=== PATIENT | female | born 1950 | race Caucasian/White ===

== ENCOUNTER → 2016-05-19 | Outpatient (CLI) | payer OTHER ==
[~2016-05-19] MED LIST: ASPCH81 PO; ASTIN/15 INH; ATV/2 PO; CALC600T9 PO; CHOL20007 PO; CLC100 PO; COEN100C7 PO; CYAN500T13 PO; DOCU100C31 PO; DULO60CA44 PO; EZET10TA41 PO; FLUT1INH INH; FORM1NEB INH; FRS/40 PO; GABA-112 PO; GLC500 PO; GLIP-197 PO; HYDR-4715 PO; HYDR-5688 PO; INSDGI SC; ISOS60TA PO; LOSA100T65 PO; MAGN400T6 PO; METO50TA7 PO; NASONEX INTNAS; NTRGSL/4 UT; OMEG10007 PO; OXYC5TAB PO; PERFORMIST INH; POTA-331 PO; PRT/20 PO; RABE20TA5 PO; SITA50TA PO; SITA50TA3 PO; SNG10 PO; XPNIN INH
--- NOTE | 2016-05-19 12:21 | DIAGNOSTIC IMAGING REPORT ---
CT SCAN OF THE CHEST WITHOUT IV CONTRAST CLINICAL HISTORY: Non-small cell lung cancer. Pulmonary nodule. COMPARISON STUDY: Chest CT scans dated 02/23/2016, 10/01/2013, and 07/31/2007. PET/CT dated 12/10/2015. TECHNIQUE: CT scan of the thorax was performed from the thoracic inlet to the upper abdomen. Images are reviewed in the axial, sagittal, and coronal planes. IV contrast was not administered for this examination. CT DOSE: 604.77 mGy.cm FINDINGS: Thyroid: Imaged portions of the thyroid gland are normal in size and attenuation. Thoracic aorta: There is advanced atherosclerotic calcification of the thoracic aorta. There is mild ectasia of the ascending thoracic aorta which measures up to 4.0 cm. The remainder of the thoracic aorta is normal in caliber. The arch demonstrates standard 3-vessel anatomy. Heart: The patient is status post midline sternotomy. The heart is normal in size and without pericardial effusion. The coronary arteries are densely calcified. There is mild Lungs and pleural spaces: There is emphysema with postoperative changes from left upper lobe resection. No airspace consolidation or pleural effusion is seen. The trachea and central airways appear clear. There are scattered calcified granulomas. The groundglass lesion in the superior segment of left lower lobe seen on 02/23/2016 has resolved. This was likely on an infectious/inflammatory basis. Additional scattered pulmonary nodules (at least 5) are likely unchanged from prior studies. Card Clothier nodules are seen in the right middle lobe on image #177 COMBO the right upper lobe on image #116, and at the left lung base on images #223 and #202. Mediastinum: There is no mediastinal lymphadenopathy. [place]: Not well assessed without IV contrast. Axillae: There is no axillary lymphadenopathy. Upper abdomen: The right kidney is surgically absent. Cortical atrophy is noted in the partially imaged left kidney. Calcified gallstones are identified. There is a small hiatal hernia. A 1.4 cm hypodensity in the right lobe seen on image #265 is unchanged from 2008 and of doubtful significance. Skeletal structures: The skeletal structures are osteopenic. No lytic or blastic bony lesions are seen. IMPRESSION: 1. Emphysema and postoperative changes from left upper lobe resection. 2. There is no convincing evidence of recurrent/metastatic disease in the chest. 3. The groundglass lesion of concern in the superior segment of the left lower lobe seen on 02/23/2016 has resolved and was likely on an infectious/inflammatory basis. 4. Scattered (at least 5) small pulmonary nodules measuring up to 4 mm are likely unchanged from prior studies. These are of low suspicion and continued attention at regularly scheduled follow-up is recommended. 5. There is mild ectasia of the ascending thoracic aorta which measures up to 4.0 cm. This is similar to previous. 6. Cholelithiasis. 7. Additional changes as above. Electronically signed by: Jordy Torres M.D. 05/19/2016 12:20 PM Dictated Date/Time: 05/19/2016 12:06 PM
== END | disposition home or self-care (01) ==
LOC: C.CTS 11:17
PROVIDERS: ATTEND Internal Medicine Pulmonary Disease
DX: C34.90 Malignant neoplasm of unspecified part of unspecified bronchus or lung (principal); R91.1 Solitary pulmonary nodule; R91.8 Other nonspecific abnormal finding of lung field; J43.9 Emphysema, unspecified; K80.20 Calculus of gallbladder without cholecystitis without obstruction

== ENCOUNTER 2016-05-28 06:07 | Day surgery (SDC) | payer OTHER ==
[2016-05-21 09:24] VITALS: BMI 35.0
--- NOTE | 2016-05-21 10:07 | PAT Medication Instructions ---
Service Date May 21, 2016. Current Home Medication List Aspirin (Aspirin Tab-Chewable *), 81 MG PO QAM Azelastine HCl (Astepro), 1 SPRAY INH DAILY PRN for PRN Calcium Carbonate-Vitamin D (Calcium + D), 1 TAB PO QAM Coenzyme Q10 (Ubidecarenone) (Coq10), 100 MG PO QPM Cyanocobalamin (Vitamin B12 500MCG), 1,000 MCG PO QAM Docusate Sodium (Docusate Sodium), 1 CAP PO PRN Duloxetine Hcl (Cymbalta), 60 MG PO QAM Ezetimibe/Simvastatin (Vytorin 10MG/40MG), 1 TAB PO QPM Fish Oil (Zeigler-3), 1,000 MG PO QAM Fluticasone Furoate-Vilanterol (Breo Ellipta), 1 DOSE INH QAM PRN for RN Furosemide (Lasix), 40 MG PO QAM Furosemide (Lasix), 20 MG PO QPM Glipizide (Glipizide Er), 2.5 MG PO QAM Hydralazine Hcl (Apresoline), 10 MG PO QAM Insulin Glargine (Lantus), 12 UNITS SC QPM Isosorbide Mononitrate (Imdur), 60 MG PO QAM Levalbuterol Tartrate (Xopenex Hfa), 1 PUFF INH DAILY PRN for COPD Lorazepam (Ativan), 0.5 MG PO HS Losartan Potassium (Cozaar), 100 MG PO QAM Magnesium Oxide (Mag-Ox), 400 MG PO QAM Metformin Hcl (Glucophage *), 500 MG PO BID Metoprolol Succ (Toprol Xl) (Toprol-Xl), 50 MG PO BID Montelukast (Singulair *), 10 MG PO HS Nitroglycerin (Nitrostat), 0.4 MG UT PRN Potassium Chloride Microencaps (Klor-Con M10), 10 MEQ PO QAM Rabeprazole Sodium (Aciphex), 20 MG PO QAM Sitagliptin (Januvia), 50 MG PO QAM [Nasonex], 1 SPRAY INTNAS PRN [Performist Neb], 1 DOSE INH PRN Medication Instructions For Your Scheduled Surgery Nitroglycerin (Nitrostat), 0.4 MG UT PRN (if needed) - Hold the following medications starting today 05/21/16/: Fish Oil (Zeigler-3), 1,000 MG PO QAM Coenzyme Q10 (Ubidecarenone) (Coq10), 100 MG PO QPM - Hold the following medications 48 hours prior to surgery: Metformin Hcl (Glucophage *), 500 MG PO BID - Hold the following medications the morning of surgery: Sitagliptin (Januvia), 50 MG PO QAM Potassium Chloride Microencaps (Klor-Con M10), 10 MEQ PO QAM Magnesium Oxide (Mag-Ox), 400 MG PO QAM Losartan Potassium (Cozaar), 100 MG PO QAM Glipizide (Glipizide Er), 2.5 MG PO QAM Furosemide (Lasix), 40 MG PO QAM Cyanocobalamin (Vitamin B12 500MCG), 1,000 MCG PO QAM Docusate Sodium (Docusate Sodium), 1 CAP PO PRN Calcium Carbonate-Vitamin D (Calcium + D), 1 TAB PO QAM - Take the following medications the morning of surgery with a sip of water: Aspirin (Aspirin Tab-Chewable *), 81 MG PO QAM Rabeprazole Sodium (Aciphex), 20 MG PO QAM Metoprolol Succ (Toprol Xl) (Toprol-Xl), 50 MG PO BID Levalbuterol Tartrate (Xopenex Hfa), 1 PUFF INH DAILY PRN for COPD (bring with you to hospital on day of surgery) Isosorbide Mononitrate (Imdur), 60 MG PO QAM Hydralazine Hcl (Apresoline), 10 MG PO QAM Fluticasone Furoate-Vilanterol (Breo Ellipta), 1 DOSE INH QAM PRN for RN Duloxetine Hcl (Cymbalta), 60 MG PO QAM Azelastine HCl (Astepro), 1 SPRAY INH DAILY PRN for PRN if needed) Nasonex 1 SPRAY INTNAS PRN (if needed) Performist Neb 1 DOSE INH PRN if needed) - Take the following medications as scheduled the night before surgery: Montelukast (Singulair *), 10 MG PO HS Metoprolol Succ (Toprol Xl) (Toprol-Xl), 50 MG PO BID Lorazepam (Ativan), 0.5 MG PO HS Insulin Glargine (Lantus), 12 UNITS SC QPM Furosemide (Lasix), 20 MG PO QPM Ezetimibe/Simvastatin (Vytorin 10MG/40MG), 1 TAB PO QPM If you have any questions please call us at [phone] or [phone] ( [place]) or [phone]
[2016-05-21 11:17] LABS: PARTIAL THROMBOPLASTIN RATIO 0.9; PROTHROMBIN TIME (PATIENT) 10.5 SECONDS (9.0-12.0)
--- NOTE | 2016-05-26 15:20 | HISTORY & PHYSICAL EXAMINATION ---
DATE OF ADMISSION: 05/28/2016 CHIEF COMPLAINT: Triggering of the right long and small finger and a de Quervain tenosynovitis of the left wrist. HISTORY OF PRESENT ILLNESS: rTini is a pleasant 65-year-old female who has been complaining with chronic triggering of the right long and small fingers and pain in the left wrist. Clinically, I diagnosed her with trigger fingers on the right hand and a left de Quervain's tenosynovitis. She has failed extensive conservative treatment including multiple injections and has elected to undergo release. She understands the risks, benefits, alternatives to procedure and is electing to proceed. PAST MEDICAL HISTORY: Significant for an MN in 1999 and 2003, hypertension, hyperlipidemia, asthma, COPD, sleep apnea, heart bypass surgery in 1999, insulin-dependent diabetes, arthritis, GERD and obesity. PAST SURGICAL HISTORY: Significant for quadruple bypass, nephrectomy, tubal ligation, upper lobectomy of her lungs. ALLERGIES: None. MEDICATIONS: Include Zetia, Lasix, alprazolam, Imdur, Toprol, Singulair, Zantac, rabeprazole, Cymbalta, metformin, glipizide, Lantus, Januvia, Breo, losartan, potassium, magnesium, Ativan, Preformist, Xopenex, Nasonex, gabapentin and aspirin daily. FAMILY HISTORY: Noncontributory. SOCIAL HISTORY: She is . She rarely drinks. She denies any tobacco or drug use. She has little activity at this time. REVIEW OF SYSTEMS: She complains of right hand pain and left wrist pain. All other pertinent review of systems are negative. PHYSICAL EXAMINATION: GENERAL: She is awake, alert and oriented x3. She is in no apparent distress. She is very pleasant. HEAD, EYES, EARS, NOSE, AND THROAT: Pupils equal, round and reactive to light. Extraocular movements intact. Oral mucosa pink and moist. HEART: Regular rate per radial pulse. LUNGS: Maryann symmetrically bilaterally with no audible breath sounds. ABDOMEN: Soft, nontender, nondistended. MUSCULOSKELETAL: On physical examination of her right hand, she does have triggering of the small and long fingers of her right hand. She has a lot of pain over the A1 hany. Examination of the left wrist all of her pain is located over the first dorsal compartment. She has positive Lefty test. IMPRESSION: 1. Triggering of the right long and small fingers. 2. Left wrist de Quervain's tenosynovitis. PLAN: Will proceed with a trigger finger release on the right hand and de Quervain's release on the left. Postoperatively, she will be placed in a soft dressing and given some pain medications and discharged to home. RADHA
[~2016-05-28] VITALS: Ht 152.4 cm; Wt 81.7 kg
[~2016-05-28 06:07] MED LIST changes: +ACETAMINOPHEN 500 MG TAB PO SCH; +CEFAZOLIN 2000 MG/60 ML D5W 60 ML IV SCH; -CHOL20007 PO; -CLC100 PO; +FAMOTIDINE 20 MG TAB PO SCH; -FORM1NEB INH; -GABA-112 PO; -HYDR-5688 PO; +LACTATED RINGER'S 1000ML 1,000 ML IV SCH; +LACTATED RINGER'S 1000ML IV SCH; -OXYC5TAB PO; -PRT/20 PO; -SITA50TA PO
[2016-05-28 06:36] VITALS: BP 165/83; PULSE 55; TEMP 36.8; O2SAT 98; Ht 152.4 cm; Wt 81.7 kg
--- NOTE | 2016-05-28 06:42 | History & Physical Bridge Note ---
H&P Re-Evaluation Bridge Note: I have examined the patient, reviewed the History & Physical and in the interval since the performance of the History & Physical I have noted the following changes of clinical significance: No changes noted
[2016-05-28] MEDS ORDERED: PROPOFOL IV EMULSION 10 MG/ML 20 ML VIAL IV ONE (07:16)
[2016-05-28] MEDS ORDERED: MIDAZOLAM HCL 1 MG/ML 2ML VIAL ONE (07:17)
[2016-05-28] MEDS ORDERED: FENTANYL CITRATE INJ 50 MCG/1 ML 2 ML VIAL ONE (07:17)
[2016-05-28] MEDS ORDERED: LIDOCAINE HCL 2% LOCAL 50ML VIAL ONE (07:23)
[2016-05-28] MEDS ORDERED: EpHEDrine SULFATE INJ 50 MG/ML AMP IV PRN (08:00)
[2016-05-28] MEDS ORDERED: ATROPINE SULFATE 0.1 MG/ML 5ML SYR IV PRN (08:00)
[2016-05-28] MEDS ORDERED: LABETALOL HCL IV 5 MG/ML 20ML IV PRN (08:00)
[2016-05-28] MEDS ORDERED: ONDANSETRON INJ 2 MG/ML 2 ML VIAL IV PRN ×2 (08:00→08:30)
[2016-05-28] MEDS ORDERED: HYDROmorphone INJ 1 MG/ML SYR IV PRN (08:00)
[2016-05-28] MEDS ORDERED: MEPERIDINE HCL 25 MG/ML CARP IV PRN (08:00)
[2016-05-28] MEDS ORDERED: FENTANYL CITRATE INJ 50 MCG/1 ML 2 ML VIAL IV PRN (08:00)
[2016-05-28] MEDS ORDERED: HYDR-5688 PO (08:18)
[2016-05-28] MEDS ORDERED: SODIUM CHLORIDE 0.9% 1000ML 1,000 ML IV SCH (08:19)
--- NOTE | 2016-05-28 08:19 | Discharge Instructions ---
Discharge Instructions Admission Reason for Admission: Trigger Finger, Dequervains Syndrome Discharge Discharge Diagnosis / Problem: SAME ABOVE Discharge Goals Goal(s): Decrease discomfort, Improve function Activity Recommendations Activity Limitations: as noted below Lifting Limitations: gradually increase as tolerated Exercise/Sports Limitations: gradually increase as tolerated Driving or Machine Use: WHEN PAIN IS TOLERATED AND NOT TAKING NORCO . Instructions / Follow-Up Instructions / Follow-Up MEDICATIONS: * Resume previous medications unless instructed otherwise by your surgeon. * Always take pain medication on a full stomach or with food to avoid upset stomach. * Do not drink alcohol or drive while taking narcotics. * Ibuprofen or Tylenol may be taken if narcotic not needed. SPECIAL CARE INSTRUCTIONS: __ None _X_ Keep extremity elevated and iced x 48 hours; apply ice 20-30 minutes 8-10 times/day. May remove at night. __ Sling __24 hrs/day __ Remove at night __ Shoulder Immobilizer __ 24 hrs/day __ Remove at night _X_ Dressing __ Maintain until seen in office, may shower with plastic over site _X_ Remove dressings in 5 DAYS. MAY SHOWER SOONER IF COVERED WITH PLASTIC BAG _X_ Cover incisions with band-aids after showering __ Do not remove steri-strips Call physician if chills or temperature rises above 102 degrees or pain unrelieved by prescribed pain medications at . . Current Hospital Diet Patient's current hospital diet: Discharge Diet Recommended Diet: Regular Diet Fluid Restriction: None Procedures Procedures Performed: Trigger Finger Release Right Long and 5th Finger Left Dequervain's Release Pending Studies Studies pending at discharge: no Work Instructions Return To Work: after follow-up Lifting Limitations: TOLERATED Medical Emergencies . Who to Call and When: Medical Emergencies: If at any time you feel your situation is an emergency, please call 911 immediately. . Non-Emergent Contact Non-Emergency issues call your: Primary Care Provider Call Non-Emergent contact if: you have a fever, temperature is above 101.5 . "Provider Documentation" section prepared by Parrish Wray. VTE Core Measure Inpt VTE Proph given/why not?: Treatment not indicated
[2016-05-28] MEDS ORDERED: HYDROCODONE/ACETAMOPHEN 5/325MG TAB PO PRN ×2 (08:30)
--- NOTE | 2016-05-28 08:39 | OPERATIVE REPORT ---
DATE OF OPERATION: 05/28/2016 PREOPERATIVE DIAGNOSES: De Quervain's tenosynovitis of the left wrist and trigger fingers of the right small and long fingers. POSTOPERATIVE DIAGNOSES: Same. PROCEDURES: Open left de Quervain's release and an open trigger finger release of the right small finger and the right long finger. SURGEON: Dr. Kevin Barfield. SHUTTLE DRIVER: Lenard Wray PA-C, whose assistance was necessary for positioning of the hand and helping with instrumentation and retraction. ANESTHESIA: Local with sedation. COMPLICATIONS: None. CONDITION: Stable to PACU. INDICATIONS: Trini is a pleasant 65-year-old female who presented to my office with left wrist pain and right hand pain. The left wrist was diagnosed to have de Quervain tenosynovitis and the right hand had triggering of the small and long finger. After failing conservative treatment including multiple injections, she elected to undergo operative release. DESCRIPTION OF PROCEDURE: On 05/28/2016, she arrived at [facility] for the above procedure. She was seen in the preoperative holding area and the operative extremity was identified and signed. She was taken back to the operating room, laid on the table in supine position and put under basic sedation. Both hands and wrists were prepped and draped in sterile fashion. Time-out was done and the patient and operative extremity was properly identified. The de Quervain's release was done first. The surgical site was anesthetized with 5 mL of 2% lidocaine without epinephrine. A longitudinal incision was made directly over the first dorsal compartment. Dissection was taken down with care not to disrupt the superficial nerve. The first dorsal compartment was then released. Complete release was checked both proximally and distally. An additional compartment was found deep around the tendon and that was released as well. The abductor pollicis longus and extensor pollicis brevis were completely freed up and complete release was checked both proximally and distally. The wound was then irrigated and closed with a 4-0 nylon suture. Soft dressing was placed. Attention was turned to the right hand. The surgical sites were anesthetized with 5 mL of 2% lidocaine without epinephrine. A longitudinal incision was made directly over the A1 hany of the right small finger. Dissection was taken down with care not to disrupt the digital nerves. The A1 hany was then exposed and released. Complete release was checked both proximally and distally. The wound was then irrigated and closed with 4-0 nylon suture. The same procedure was done on the right long finger with a longitudinal incision made over the A1 hany and complete release of the A1 hany. The wound was then closed with 4-0 nylon suture. A soft dressing was placed on the right hand. She was then taken to the postanesthesia care unit in stable condition. She tolerated the procedure well. I attest to the content of the Intraoperative Record and any orders documented therein. Any exceptio ns are noted below.
[2016-05-28 08:45] VITALS: BP 151/71; PULSE 62; TEMP 36.8; O2SAT 98
--- NOTE | 2016-05-28 08:46 | Anesthesiology Progress Note ---
Anesthesia Post Op Note Date & Time May 28, 2016 at 08:46 Vital Signs Pain Intensity: 0 Vital Signs Past 12 Hours Date Time Temp Pulse Resp B/P Pulse Ox O2 Delivery O2 Flow Rate FiO2 05/28/16 08:40 36.7 60 14 156/74 96 Room Air 05/28/16 08:30 62 16 143/81 95 Room Air 05/28/16 08:20 36.7 63 16 148/76 100 Mask 10 05/28/16 06:36 36.8 55 18 165/83 98 Room Air Notes Mental Status: alert / awake / arousable, participated in evaluation Pt Amnestic to Procedure: Yes Nausea / Vomiting: adequately controlled Pain: adequately controlled Airway Patency, RR, SpO2: stable & adequate BP & HR: stable & adequate Hydration State: stable & adequate Anesthetic Complications: no major complications apparent
[2016-05-28 09:15] VITALS: BP 122/59; PULSE 61; TEMP 36.6; O2SAT 99
--- NOTE | 2016-05-28 12:02 | [facility] Post Operative Brief Note ---
Immediate Operative Summary Operative Date May 28, 2016. Pre-Operative Diagnosis Triggering of the right long and small fingers Left wrist de Quervain's tenosynovitis Post-Operative Diagnosis Triggering of the right long and small fingers Left wrist de Quervain's tenosynovitis Procedure(s) Performed Trigger Finger Release Right Long and 5th Finger Left Dequervain's Release Surgeon Dr. Barfield Green Meat Packer Surgeon(s) Parrish Wrya PA-C Estimated Blood Loss 1 mL Findings as above Specimens None Complication(s) None Disposition Recovery Room / PACU
== END 2016-05-28 09:50 | disposition home or self-care (01) ==
LOC: C.ACU 06:07
PROVIDERS: ATTEND Orthopaedic Surgery
DX: M65.4 Radial styloid tenosynovitis [de Quervain] (principal); M65.351 Trigger finger, right little finger; M65.331 Trigger finger, right middle finger; I25.2 Old myocardial infarction; I10 Essential (primary) hypertension; E78.5 Hyperlipidemia, unspecified; J45.909 Unspecified asthma, uncomplicated; J44.9 Chronic obstructive pulmonary disease, unspecified; E11.9 Type 2 diabetes mellitus without complications; M19.90 Unspecified osteoarthritis, unspecified site; K21.9 Gastro-esophageal reflux disease without esophagitis; Z95.1 Presence of aortocoronary bypass graft; Z79.4 Long term (current) use of insulin; E66.9 Obesity, unspecified

== ENCOUNTER → 2016-07-16 | Outpatient (CLI) | payer OTHER ==
[~2016-07-16] MED LIST changes: -ACETAMINOPHEN 500 MG TAB PO SCH; +ASPI81TA28 PO; -CEFAZOLIN 2000 MG/60 ML D5W 60 ML IV SCH; -FAMOTIDINE 20 MG TAB PO SCH; +FERR1TAB23 PO; +GLC/500 PO; +HYDR-5688 PO; +INSDGI INJ; +ISOS60TA25 PO; -LACTATED RINGER'S 1000ML 1,000 ML IV SCH; -LACTATED RINGER'S 1000ML IV SCH; +LEVA45AE INH; +LOVA10TA3 PO; +MONT1TAB5 PO; +POTA10TA PO; +RANI300T2 PO; +SENNTAB23 PO
--- NOTE | 2016-07-16 12:17 | DIAGNOSTIC IMAGING REPORT ---
CT OF THE CHEST WITHOUT IV CONTRAST CLINICAL HISTORY: Lung nodule follow-up. Lung cancer. COMPARISON STUDY: Chest CT May 19, 2016 and PET/CT December 10, 2015. CT DOSE: 500.91 mGycm TECHNIQUE: Axial images of the chest were obtained without IV contrast. Images were reviewed in the axial, sagittal, and coronal planes. IV contrast was not administered for this examination. FINDINGS: There are stable postsurgical findings consistent with a left upper lobectomy. Mild dilatation of the ascending aorta is unchanged. There are median sternotomy wires and changes consistent with bypass grafting. There are no enlarged axillary, mediastinal or hilar lymph nodes. No pneumothorax or pleural effusions present. Multiple small pulmonary nodules are unchanged since prior exam. These are also unchanged since exam of February 23, 2016 and include a 4 mm right upper lobe nodule shown on image 115 of 306. Smaller nodules are unchanged. There are no new nodules. No suspicious osseous lesions are present. The right kidney is surgically absent. IMPRESSION: 1. Stable postoperative findings following left upper lobectomy. No thoracic lymphadenopathy. 2. No change in multiple small pulmonary nodules which measure up to 4 mm. These are likely benign but should be assessed on subsequent studies to ensure stability. Electronically signed by: Kevin Ramirez M.D. 07/16/2016 12:15 PM Dictated Date/Time: 07/16/2016 12:00 PM
== END | disposition home or self-care (01) ==
LOC: C.CTS 10:32
PROVIDERS: ATTEND Surgery
DX: R91.8 Other nonspecific abnormal finding of lung field (principal); Z90.2 Acquired absence of lung [part of]

== ENCOUNTER → 2017-01-10 | Outpatient (CLI) | payer OTHER ==
[~2017-01-10] MED LIST changes: -ASPI81TA28 PO; -FERR1TAB23 PO; -GLC/500 PO; -HYDR-5688 PO; -INSDGI INJ; -ISOS60TA25 PO; -LEVA45AE INH; -LOVA10TA3 PO; -MONT1TAB5 PO; -POTA10TA PO; -RANI300T2 PO; -SENNTAB23 PO
--- NOTE | 2017-01-10 09:08 | DIAGNOSTIC IMAGING REPORT ---
CT SCAN OF THE CHEST WITHOUT IV CONTRAST CLINICAL HISTORY: Non-small cell lung cancer. Pulmonary nodule. COMPARISON STUDY: Chest CT scans dated 07/16/2016, 02/23/2016, 10/01/2013, and 07/31/2007. PET/CT dated 12/10/2015. TECHNIQUE: CT scan of the thorax was performed from the thoracic inlet to the upper abdomen. Images are reviewed in the axial, sagittal, and coronal planes. IV contrast was not administered for this examination as per the referring clinician. CT DOSE: 545.24 mGy.cm FINDINGS: Thyroid: Imaged portions of the thyroid gland are normal in size and attenuation. Thoracic aorta: There is advanced atherosclerotic calcification of the thoracic aorta. There is mild ectasia of the ascending thoracic aorta which measures up to 4.1 cm. The remainder of the thoracic aorta is normal in caliber. The arch demonstrates standard 3-vessel anatomy. Heart: The patient is status post midline sternotomy. The heart is top normal in size and without pericardial effusion. The coronary arteries are densely calcified. Lungs and pleural spaces: There is emphysema with postoperative changes from left upper lobe resection. The trachea and central airways appear clear. There are scattered calcified granulomas. There is a new 2.3 cm groundglass focus in the left upper lung seen on image #94. Additional scattered pulmonary nodules (at least 5) are likely unchanged from prior studies. Automobile Designer nodules are seen in the right middle lobe on image #160, the right upper lobe on image #99, and at the left lung base on images #187and #210. Mediastinum: There is no mediastinal lymphadenopathy. [place]: Not well assessed without IV contrast. Axillae: There is no axillary lymphadenopathy. Upper abdomen: There is a tiny hiatal hernia. The right kidney is surgically absent. Cortical atrophy is noted in the partially imaged left kidney. Calcified gallstones are identified. There is a small hiatal hernia. A 1.4 cm hypodensity in the right hepatic lobe seen on image #248 is unchanged from 2008 and of doubtful significance. Skeletal structures: The skeletal structures are osteopenic. No lytic or blastic bony lesions are seen. Degenerative change is seen throughout the thoracic spine. IMPRESSION: 1. Emphysema and postoperative changes from left upper lobe resection. 2. There is an indeterminant 2.3 cm groundglass lesion in the left upper lung, new from 07/16/2016. This is similar appearance but larger than the groundglass focus seen at this site on 02/23/2016 which had resolved on more recent follow-up examinations. This is likely on an infectious/inflammatory basis. Precautionary 3 month follow-up is recommended to document resolution. 3. No additional findings are concerning for recurrent/metastatic disease. 4. Scattered (at least 5) small pulmonary nodules measuring up to 4 mm are likely unchanged from prior studies. These are of low suspicion and continued attention at regularly scheduled follow-up is recommended. 5. There is mild ectasia of the ascending thoracic aorta which measures up to 4.1 cm. This is similar to previous. 6. Cholelithiasis. 7. Additional changes as above. Electronically signed by: Jordy Torres M.D. 01/10/2017 9:06 AM Dictated Date/Time: 01/10/2017 8:55 AM
== END | disposition home or self-care (01) ==
LOC: C.CTS 08:43
PROVIDERS: ATTEND Internal Medicine Critical Care Medicine
DX: C34.90 Malignant neoplasm of unspecified part of unspecified bronchus or lung (principal); J43.9 Emphysema, unspecified; K80.20 Calculus of gallbladder without cholecystitis without obstruction

== ENCOUNTER → 2017-01-24 | Outpatient (CLI) | payer OTHER ==
[~2017-01-24] MED LIST changes: -ASPCH81 PO; +ASPI81TA28 PO; -ASTIN/15 INH; -EZET10TA41 PO; +FERR1TAB23 PO; +GLC/500 PO; -GLC500 PO; +INSDGI INJ; -INSDGI SC; -ISOS60TA PO; +ISOS60TA25 PO; +LEVA45AE INH; +LOVA10TA3 PO; +MONT1TAB5 PO; -POTA-331 PO; +POTA10TA PO; +RANI300T2 PO; -SNG10 PO
--- NOTE | 2017-01-24 11:24 | DIAGNOSTIC IMAGING REPORT ---
PET/CT HISTORY: PULMONARY NODULE TECHNIQUE: PET/CT was performed from the base of the skull through the pelvis following the intravenous administration of 13.4 mCi of F18-FDG. Non-contrast CT imaging was performed over the same range without breath-hold for attenuation correction of PET images and anatomic correlation, but not for primary interpretation as it is not of standard diagnostic quality. CT DOSE: COMPARISON: PET CT 12/10/2015. Chest CT 01/10/2017. FINDINGS: HEAD AND NECK: There is no FDG-avid disease or significant lymphadenopathy in the imaged portions of the head and the neck. CHEST: There is again noted the left upper lobe groundglass opacity/nodule. This measures approximately 2.0 x 0.8 cm. This has slightly decreased in size from the recent chest CT. This demonstrates minimal FDG uptake with an SUV max of 1.5. Additional subcentimeter nodules within the lungs remain stable and do not demonstrate abnormal FDG uptake. However, these are likely below the threshold for PET imaging. No FDG avid mediastinal or hilar lymphadenopathy. Postoperative changes consistent with prior left upper lobectomy. ABDOMEN/PELVIS: Below the diaphragm, tracer is distributed physiologically in the gastrointestinal and genitourinary tracts. There is no significant lymphadenopathy and no FDG-avid disease. Prior right nephrectomy. Stable 1.3 cm hypodense lesion within the right hepatic lobe. Cholelithiasis. Stable 9 mm exophytic hypodense lesion within the left kidney. This does not demonstrate FDG uptake and likely represents a cyst. Colonic diverticulosis. MUSCULOSKELETAL: There is no FDG-avid or destructive bone lesion. IMPRESSION: 1. Slight decrease in size in the left upper lobe groundglass opacity/nodule which now measures 2.0 x 0.8 cm. This demonstrates minimal FDG uptake. Therefore, this favors a resolving inflammatory/infectious process. However, a [address] follow up is recommended to ensure complete resolution and to exclude the less likely possibility of a low-grade malignancy. 2. Otherwise, no FDG avid disease identified. Electronically signed by: Chacho Mercedes M.D. 01/24/2017 11:22 AM Dictated Date/Time: 01/24/2017 11:05 AM
== END | disposition home or self-care (01) ==
LOC: C.PET 06:43
PROVIDERS: ATTEND Physician Assistant
DX: R91.1 Solitary pulmonary nodule (principal); R91.8 Other nonspecific abnormal finding of lung field

== ENCOUNTER → 2017-04-14 | Outpatient (CLI) | payer OTHER ==
[~2017-04-14] MED LIST changes: +FURO40TA3 PO; -HYDR-4715 PO; +HYDR-4717 PO; -XPNIN INH
== END | disposition home or self-care (01) ==
LOC: C.LABMFLN 08:16
PROVIDERS: ATTEND Family Medicine
DX: M10.9 Gout, unspecified (principal)

== ENCOUNTER → 2017-04-21 | Outpatient (CLI) | payer OTHER ==
--- NOTE | 2017-04-21 13:39 | DIAGNOSTIC IMAGING REPORT ---
(CHEST) THORAX WITHOUT CT DOSE: 432.08 mGycm HISTORY: R91.[address] scan, lungR94.2 Abnormal PET scan, lungC34.90 TECHNIQUE: Multiaxial CT images of the chest were performed without contrast. A dose lowering technique was utilized adhering to the principles of ALARA. COMPARISON: Chest CT 01/10/2017. PET CT 01/24/2017. FINDINGS: The central airways are patent. No pleural effusions. No pneumothorax. Postoperative changes consistent with prior left upper lobectomy. The groundglass opacity seen within the superior segment of the left lower lobe has resolved in the interval. Stable scarlike density within the left lung base. There are at least 10 scattered subcentimeter pulmonary nodules which are not significantly changed in size. Dominant nodule within the right upper lobe on image 109 measures 4 mm. No new pulmonary nodules are identified. No suspicious lytic or blastic osseous lesions. Stable mild aneurysmal dilatation of the ascending thoracic aorta which measures up to 4.1 cm. The heart is normal in size. Prominent distal periesophageal lymph nodes remain stable. Otherwise, no mediastinal or hilar lymphadenopathy. Limited views of the liver, spleen, and adrenal glands are unremarkable. IMPRESSION: 1. Interval resolution of the left lower lobe groundglass opacity. 2. Otherwise, no significant change compared to the prior studies. 3. Multiple scattered subcentimeter pulmonary nodules remain unchanged. No new pulmonary nodules identified. 4. Postoperative changes consistent with a left upper lobectomy. 5. Additional findings as described above. Electronically signed by: Chacho Mercedes M.D. 04/21/2017 1:38 PM Dictated Date/Time: 04/21/2017 1:27 PM
== END | disposition home or self-care (01) ==
LOC: C.CTS 13:16
PROVIDERS: ATTEND Internal Medicine Critical Care Medicine
DX: C34.90 Malignant neoplasm of unspecified part of unspecified bronchus or lung (principal); R91.8 Other nonspecific abnormal finding of lung field; R94.2 Abnormal results of pulmonary function studies; Z90.2 Acquired absence of lung [part of]

== ENCOUNTER 2017-04-27 09:01 | Inpatient (IN) | payer OTHER ==
[2017-04-13 09:45] VITALS: BMI 35.0
--- NOTE | 2017-04-13 10:19 | PAT Medication Instructions ---
Service Date Apr 13, 2017. Current Home Medication List Aspirin (Aspirin Ec), 81 MG PO QAM Calcium Carbonate-Vitamin D (Calcium + D), 1 TAB PO QAM Coenzyme Q10 (Ubidecarenone) (Coq10), 100 MG PO QPM Cyanocobalamin (Vitamin B12 500MCG), 1,000 MCG PO QAM Docusate Sodium (Docusate Sodium), 1 CAP PO PRN Duloxetine Hcl (Cymbalta), 60 MG PO QAM Ferrous Sulfate (Iron), 325 MG PO QAM Fish Oil ([place]-3), 1,000 MG PO QAM Fluticasone Furoate-Vilanterol (Breo Ellipta), 1 DOSE INH QAM PRN for RN Furosemide (Lasix), 20 MG PO QPM Furosemide (Lasix), 40 MG PO QAM Glipizide (Glipizide Er), 2.5 MG PO QAM Hydralazine Hcl (Apresoline), 50 MG PO TID Insulin Glargine (Lantus), 14 UNITS INJ HS Isosorbide Mononitrate Ext Rel (Imdur Ext Rel), 120 MG PO QAM Levalbuterol Tartrate (Levalbuterol Tartrate Hfa), 2 PUFFS INH PRN Levalbuterol Tartrate (Levalbuterol Tartrate Hfa), 1 PUFF INH PRN Lorazepam (Ativan), 0.5 MG PO HS Losartan Potassium (Cozaar), 100 MG PO QAM Lovastatin (Mevacor), 10 MG PO QPM Magnesium Oxide (Mag-Ox), 400 MG PO QAM Metformin Hcl (Glucophage), 500 MG PO BID Metoprolol Succ (Toprol Xl) (Toprol-Xl), 50 MG PO BID Montelukast Sodium (Montelukast Sodium), 1 TAB PO QPM Nitroglycerin (Nitrostat), 0.4 MG UT PRN Potassium Chloride (K-Tabs), 10 MEQ PO QAM Rabeprazole Sodium (Aciphex), 20 MG PO QAM Ranitidine (Zantac), 300 MG PO HS Sitagliptin (Januvia), 50 MG PO QAM [Nasonex], 1 SPRAY INTNAS PRN [Performist Neb], 1 DOSE INH PRN Medication Instructions For Your Scheduled Surgery - Continue as directed: Nitroglycerin (Nitrostat), 0.4 MG UT PRN - Hold the following medications 2 weeks prior to surgery: Coenzyme Q10 (Ubidecarenone) (Coq10), 100 MG PO QPM Fish Oil ([place]-3), 1,000 MG PO QAM - Hold the following medications 48 hours prior to surgery: Metformin Hcl (Glucophage), 500 MG PO BID - Hold the following medications the morning of surgery: Furosemide (Lasix), 40 MG PO QAM Glipizide (Glipizide Er), 2.5 MG PO QAM Sitagliptin (Januvia), 50 MG PO QAM Calcium Carbonate-Vitamin D (Calcium + D), 1 TAB PO QAM Cyanocobalamin (Vitamin B12 500MCG), 1,000 MCG PO QAM Docusate Sodium (Docusate Sodium), 1 CAP PO PRN Ferrous Sulfate (Iron), 325 MG PO QAM Potassium Chloride (K-Tabs), 10 MEQ PO QAM Losartan Potassium (Cozaar), 100 MG PO QAM Magnesium Oxide (Mag-Ox), 400 MG PO QAM - Take the following medications the morning of surgery with a sip of water OTHERWISE NOTHING TO EAT OR DRINK AFTER MIDNIGHT: Aspirin (Aspirin Ec), 81 MG PO QAM Duloxetine Hcl (Cymbalta), 60 MG PO QAM Hydralazine Hcl (Apresoline), 50 MG PO TID Metoprolol Succ (Toprol Xl) (Toprol-Xl), 50 MG PO BID [Nasonex], 1 SPRAY INTNAS PRN [Performist Neb], 1 DOSE INH PRN Rabeprazole Sodium (Aciphex), 20 MG PO QAM Fluticasone Furoate-Vilanterol (Breo Ellipta), 1 DOSE INH QAM PRN Levalbuterol Tartrate (Levalbuterol Tartrate Hfa), 2 PUFFS INH PRN Levalbuterol Tartrate (Levalbuterol Tartrate Hfa), 1 PUFF INH PRN Isosorbide Mononitrate Ext Rel (Imdur Ext Rel), 120 MG PO QAM - Take the following medications as scheduled the night before surgery: Insulin Glargine (Lantus), 14 UNITS INJ HS Hydralazine Hcl (Apresoline), 50 MG PO TID Metoprolol Succ (Toprol Xl) (Toprol-Xl), 50 MG PO BID [Nasonex], 1 SPRAY INTNAS PRN [Performist Neb], 1 DOSE INH PRN Lorazepam (Ativan), 0.5 MG PO HS Lovastatin (Mevacor), 10 MG PO QPM Furosemide (Lasix), 20 MG PO QPM Ranitidine (Zantac), 300 MG PO HS Docusate Sodium (Docusate Sodium), 1 CAP PO PRN Montelukast Sodium (Montelukast Sodium), 1 TAB PO QPM Fluticasone Furoate-Vilanterol (Breo Ellipta), 1 DOSE INH QAM PRN Levalbuterol Tartrate (Levalbuterol Tartrate Hfa), 2 PUFFS INH PRN Levalbuterol Tartrate (Levalbuterol Tartrate Hfa), 1 PUFF INH PRN If you have any questions please call us at [phone] or [phone] or [phone]
[2017-04-13 12:15] LABS: BASO % 0.4 %; BASO ABS # 0.03 K/uL (0-0.2); EOS ABS # 0.08 K/uL (0-0.5); HEMOGLOBIN 14.4 g/dL (12.0-16.0); IG# 0.04 K/uL (0.00-0.02); LYMPH % 24.6 %; LYMPH ABS # 2.04 K/uL (1.2-3.4); MEAN CELL VOLUME 86.5 fL (80-100); MEAN CORPUSCULAR HGB CONC 33.5 g/dl (32-36); MEAN PLATELET VOLUME 10.4 fL (7.4-10.4); MONO % 8.2 %; MONO ABS # 0.68 K/uL (0.11-0.59); NEUT % 65.3 %; NEUT ABS # 5.41 K/uL (1.4-6.5); PLATELET COUNT 220 K/uL (130-400); RED CELL DISTRIBUTION WIDTH CV 14.3 % (11.5-14.5); RED CELL DISTRIBUTION WIDTH SD 44.7 fL (36.4-46.3); WHITE BLOOD COUNT 8.28 K/uL (4.8-10.8)
[2017-04-13 12:56] LABS: CALCIUM 9.8 mg/dl (8.5-10.1); CREATININE 1.96 mg/dl (0.60-1.20); POTASSIUM 4.9 mmol/L (3.5-5.1)
[2017-04-27] VITALS (10 sets, daily range): BP systolic 96–169; BP diastolic 55–87; PULSE 65–95; TEMP 36.6–37.1; O2SAT 92–99; Ht 152.4 cm; Wt 80.0 kg
[~2017-04-27] VITALS: Ht 152.4 cm; Wt 80.0 kg
[~2017-04-27 09:01] MED LIST changes: +CEFAZOLIN 2000MG IV PUSH 10 ML IV SCH; -METO50TA7 PO; +METO50TA8 PO; +SODIUM CHLORIDE 0.9% 1000ML 1,000 ML IV SCH
[2017-04-27 10:02] LABS: CALCIUM 9.7 mg/dl (8.5-10.1); CREATININE 1.73 mg/dl (0.60-1.20); POTASSIUM 4.2 mmol/L (3.5-5.1)
[2017-04-27] MEDS ORDERED: ATROPINE SULFATE 0.1 MG/ML 5ML SYR IV PRN (10:30)
[2017-04-27] MEDS ORDERED: MoRPHine SULFATE 10 MG/ML CARP/VIAL IV PRN (10:30)
[2017-04-27] MEDS ORDERED: EpHEDrine SULFATE INJ 50 MG/ML AMP IV PRN (10:30)
[2017-04-27] MEDS ORDERED: ALBUT/IPRATROP 3MG/0.5MG NEB 3 ML VIAL INH ONE (10:30)
[2017-04-27] MEDS ORDERED: ONDANSETRON INJ 2 MG/ML 2 ML VIAL IV PRN (10:30)
[2017-04-27] MEDS ORDERED: NURSING VERBAL MED ORDER ONE (10:30)
--- NOTE | 2017-04-27 10:33 | History and Physical ---
History & Physical Date Apr 27, 2017. Chief Complaint Back and leg pain History of Present Illness The patient is a 66 year old female with complaints of that and leg pain Past Medical/Surgical History Medical Problems: (1) Asthmatic bronchitis (2) COPD (chronic obstructive pulmonary disease) (3) Diabetes mellitus type 2 (4) Exacerbation of asthma (5) fibromyalgia (6) Gastroesophageal reflux disease (7) H/O unilateral nephrectomy (8) Mass of left lung (9) Myocardial infarction (10) Obstructive sleep apnea syndrome (11) Peripheral arterial occlusive disease (12) Peripheral vascular disease (13) Peripheral vascular disease with claudication Surgical Problems: (1) S/P triple vessel bypass Additional History Hepatic Disease: No Endocrine Disorder: No Kidney Disease: No Hypertension: Yes Heart Disease: No Bleeding Tendencies: No Infectious Diseases: No Allergies Coded Allergies: Albuterol (Verified Allergy, Unknown, tachycardia worse d/t moreno/parkinson /white syndrome, 04/27/17) POLLEN (Verified Allergy, Unknown, sneezing and "runny eyes", 04/27/17) Adhesives (Verified Adverse Reaction, Unknown, redness on skin, 04/27/17) Home Medications Scheduled Aspirin (Aspirin Ec), 81 MG PO QAM Calcium Carbonate-Vitamin D (Calcium + D), 1 TAB PO QAM Coenzyme Q10 (Ubidecarenone) (Coq10), 100 MG PO QPM Cyanocobalamin (Vitamin B12 500MCG), 1,000 MCG PO QAM Docusate Sodium (Docusate Sodium), 1 CAP PO PRN Duloxetine Hcl (Cymbalta), 60 MG PO QAM Ferrous Sulfate (Iron), 325 MG PO QAM Fish Oil ([place]-3), 1,000 MG PO QAM Furosemide (Lasix), 20 MG PO QPM Furosemide (Lasix), 40 MG PO QAM Glipizide (Glipizide Er), 2.5 MG PO QAM Hydralazine Hcl (Apresoline), 50 MG PO TID Insulin Glargine (Lantus), 14 UNITS INJ HS Isosorbide Mononitrate Ext Rel (Imdur Ext Rel), 120 MG PO QAM Levalbuterol Tartrate (Levalbuterol Tartrate Hfa), 2 PUFFS INH PRN Levalbuterol Tartrate (Levalbuterol Tartrate Hfa), 1 PUFF INH PRN Lorazepam (Ativan), 0.5 MG PO HS Losartan Potassium (Cozaar), 100 MG PO QAM Lovastatin (Mevacor), 10 MG PO QPM Magnesium Oxide (Mag-Ox), 400 MG PO QAM Metformin Hcl (Glucophage), 500 MG PO BID Metoprolol Succ (Toprol Xl) (Toprol-Xl), 50 MG PO BID Montelukast Sodium (Montelukast Sodium), 1 TAB PO QPM Nitroglycerin (Nitrostat), 0.4 MG UT PRN Potassium Chloride (K-Tabs), 10 MEQ PO QAM Rabeprazole Sodium (Aciphex), 20 MG PO QAM Ranitidine (Zantac), 300 MG PO HS Sitagliptin (Januvia), 50 MG PO QAM [Nasonex], 1 SPRAY INTNAS PRN [Performist Neb], 1 DOSE INH PRN Scheduled PRN Fluticasone Furoate-Vilanterol (Breo Ellipta), 1 DOSE INH QAM PRN for RN Physical Examination Skin: warm/dry, no rash Eyes: normal inspection, EOMI, sclerae normal ENT: normal ENT inspection, pharynx normal Head: normocephalic, atraumatic Neck: supple, no adenopathy, trachea midline Respiratory/Chest: lungs clear, normal breath sounds, no respiratory distress Cardiovascular: regular rate, rhythm, no edema, no murmur Abdomen / GI: normal bowel sounds, non tender Back: normal inspection Extremities: normal inspection, normal range of motion Neurologic/Psych: no motor/sensory deficits, alert, normal reflexes, oriented x 3 Diagnosis Lumbar spinal stenosis Plan of Treatment L4 5 decompression and fusion
[2017-04-27] MEDS ORDERED: MIDAZOLAM HCL 1 MG/ML 2ML VIAL ONE (10:35)
[2017-04-27] MEDS ORDERED: FENTANYL CITRATE INJ 50 MCG/1 ML 2 ML VIAL ONE ×3 (10:36→11:45)
[2017-04-27] MEDS ORDERED: BUPIVACAINE/EPINEPHRINE 0.5% MPF 1:200,000 30 ML VIAL ONE (10:55)
[2017-04-27] MEDS ORDERED: BACITRACIN 50000 UNIT VIAL ONE (10:55)
[2017-04-27] MEDS ORDERED: HYDROmorphone INJ 2 MG/ML SYR/VIAL ONE ×2 (11:45→12:32)
[2017-04-27] MEDS ORDERED: FLOSEAL HEMOSTATIC MATRIX 10ML TOP ONE (12:29)
[2017-04-27] MEDS ORDERED: LIDOCAINE HCL 2% 2 ML VIAL (20MG/ML) ONE (12:33)
[2017-04-27] MEDS ORDERED: NEOSTIGMINE METHYLSULFATE 1 MG/ML 10ML VIAL ONE (12:33)
[2017-04-27] MEDS ORDERED: ROCURONIUM BROMIDE 10 MG/ML 5 ML VIAL IV ONE (12:33)
[2017-04-27] MEDS ORDERED: PROPOFOL IV EMULSION 10 MG/ML 20 ML VIAL IV ONE (12:33)
[2017-04-27] MEDS ORDERED: DEXAMETHASONE SOD INJ 4 MG/ML VIAL ONE (12:33)
[2017-04-27] MEDS ORDERED: GLYCOPYRROLATE INJ 0.2 MG/ML VIAL ONE (12:33)
[2017-04-27] MEDS ORDERED: ONDANSETRON INJ 2 MG/ML 2 ML VIAL ONE (12:33)
[2017-04-27] MEDS ORDERED: EpHEDrine SULFATE 50MG/5ML SYR ONE (12:33)
[2017-04-27] MEDS ORDERED: SODIUM CHLORIDE 0.9% 1000ML 1,000 ML IV SCH ×2 (12:37→15:00)
--- NOTE | 2017-04-27 12:37 | [facility] Operative Report ---
Operative Report Operative Date Apr 27, 2017. Pre-Operative Diagnosis Lumbar Spinal Stenosis Post-Operative Diagnosis Lumbar Spinal Stenosis Procedure(s) Performed #1 lumbar decompression via fast-paced foraminotomies L3 4 and L4 5. #2 posterior spinal fusion L4 5. #3 posterior instrumentation L45. #4 interbody fusion L4 5. #5 placement peek cage 12 x 22 mm L45. #6 base of locally harvested morcellized autograft in the posterior lateral gutters. #7 placement InFUSE collagen sponge with master graft in the posterior lateral gutters in ostial amp of the interbody space. Surgeon Dr. Esdras Brito Research And Development Scientist Surgeon(s) Arcelia Mathews PA-C Estimated Blood Loss 75ML Findings Severe spinal stenosis with spondylolisthesis Specimens none per surgeon Dr. Gray Brito Description of Procedure Patient was met with him preoperatively case discussed all questions addressed. After informed consent obtained patient was taken to the operative suite and underwent intubation and placed in a prone position on the David table on top of the Juanito frame. All bony prominences well-padded eyes inspected to ensure no external pressure placed upon them. At this point the lumbar spine was prepped and draped in normal sterile fashion. Sharp dissection the assistance of Bovie cautery was performed onto an exposing the lamina and transverse processes of L4 5 bilaterally. From a caudal to cephalad fashion a complete laminectomy of L4 partial laminectomy of L3 was performed and a dressing recess and foraminal stenosis. Pedicle screws were then placed in L4 and L5 bilaterally with the assistance of fluoroscopy and the appropriate size carmella placed. Through a transverse foraminal approach on the right a complete discectomy of L4 5 was performed in endplates curetted to subcortical bleeding bone and the 12 x 22 mm peek cage filled with ostial bone graft tapped in position. The rods were then locked into final position bilaterally. Transverse processes of L4 and L5 bur to subcortical bleeding bone. InFUSE collagen sponge mass graft locally harvested morcellized autograft was placed in the posterior lateral gutters. A 15 round GHAZALA drain inserted. Incision then closed with 1 Vicryl in the fascia 2-0 Vicryl subcutaneously 4-0 Monocryl for final skin closure Steri-Strips dressings placed. Patient awakened and taken to PACU in stable condition. Please note Arcelia Del Valle was present throughout the entire procedure involved in patient positioning complex portions of the surgery and final skin closure. I attest to the content of the Intraoperative Record and any orders documented therein. Any exceptions are noted below.
[2017-04-27] MEDS ORDERED: LORAZEPAM 0.5 MG TAB PO PRN (12:45)
[2017-04-27] MEDS ORDERED: DO NOT ADMINISTER PNEUMOCOCCAL VACCINE PRN (12:45)
[2017-04-27] MEDS ORDERED: NALOXONE HCL 0.4 MG/1 ML VIAL/CARP IV PRN ×2 (12:45)
[2017-04-27] MEDS ORDERED: FAMOTIDINE 20 MG TAB PO PRN (12:45)
[2017-04-27] MEDS ORDERED: PROMETHAZINE HCL INJ 12.5 MG in SODIUM CHLORIDE 0.9% 50ML 50 ML IV PRN (12:45)
[2017-04-27] MEDS ORDERED: SOD PHOSPHATE/SOD BIPHOSPHATE ENEMA 132 ML BTL PR PRN (12:45)
[2017-04-27] MEDS ORDERED: NITROGLYCERIN 0.4 MG SL PER TAB CHARGE UT PRN (12:45)
[2017-04-27] MEDS ORDERED: LEValbuterol HFA 15GM INHALER INH SCH (12:45)
[2017-04-27] MEDS ORDERED: MAGNESIUM HYDROXIDE SUSP 30 ML UDC PO PRN (12:45)
[2017-04-27] MEDS ORDERED: CEFAZOLIN IV 1,000 MG in DEXTROSE 5% 50ML 50 ML IV SCH (12:45)
[2017-04-27] MEDS ORDERED: LORAZEPAM INJ 0.5 MG in SYRINGE 0 ML IV PRN (12:45)
[2017-04-27] MEDS ORDERED: ACETAMINOPHEN IV 100 ML IV PRN (12:45)
[2017-04-27] MEDS ORDERED: BISACODYL 10 MG SUPP PR PRN (12:45)
[2017-04-27] MEDS ORDERED: DO NOT ADMINISTER FLU VACCINE PRN (12:45)
[2017-04-27] MEDS ORDERED: ALUMINUM/MAGNESIUM SUSP 30 ML UDC PO PRN (12:45)
[2017-04-27] MEDS ORDERED: LEValbuterol HFA 15GM INHALER INH PRN (12:45)
[2017-04-27] MEDS ORDERED: METOCLOPRAMIDE HCL INJ 5 MG/ML 2 ML VIAL IV PRN (12:45)
[2017-04-27] MEDS ORDERED: hydrOXYzine HCL 25 MG TAB PO PRN (12:45)
--- NOTE | 2017-04-27 12:48 | DIAGNOSTIC IMAGING REPORT ---
LUMBAR SPINE 2 OR 3 VIEW HISTORY: 66 years-old Female L4-5 DECOMPRESSION/FUSION status post decompression at L4-L5 and fusion COMPARISON: None available TECHNIQUE: 2 spot fluoroscopic images of the lumbar spine were obtained utilizing 14.6 seconds of fluoroscopy time. FINDINGS: Status post decompression with posterior interbody carmella and screw fusion with discectomy at L4-L5. Alignment appears satisfactory. Multilevel endplate spurring. Surgical clips project over the left pelvis. IMPRESSION: Status post posterior decompression with interbody carmella and screw fusion with discectomy at L4-L5 with satisfactory alignment. The above report was generated using voice recognition software. It may contain grammatical, syntax or spelling errors. Electronically signed by: Donell Romero M.D. 04/27/2017 12:47 PM Dictated Date/Time: 04/27/2017 12:46 PM
[2017-04-27] MEDS ORDERED: HYDROmorphone HCL 0.5MG/ML 50 ML CASSETTE ONE (13:01)
[2017-04-27] MEDS: FENTANYL CITRATE INJ 50 MCG/1 ML 2 ML VIAL IV PRN ×4 (13:20→13:35)
--- NOTE | 2017-04-27 14:02 | Anesthesiology Progress Note ---
Anesthesia Post Op Note Date & Time Apr 27, 2017 at 14:01 Vital Signs Pain Intensity: 3 Vital Signs Past 12 Hours Date Time Temp Pulse Resp B/P (MAP) Pulse Ox O2 Delivery O2 Flow Rate FiO2 04/27/17 13:45 88 16 117/63 99 Nasal Cannula 3 04/27/17 13:35 36.3 85 16 118/63 99 Nasal Cannula 3 04/27/17 13:25 78 16 126/54 99 Nasal Cannula 3 04/27/17 13:15 79 14 137/54 100 Oxymask 3 04/27/17 13:05 79 14 138/51 100 Oxymask 3 04/27/17 12:55 77 14 130/48 100 Oxymask 5 04/27/17 12:47 36.3 84 14 141/85 96 Oxymask 5 04/27/17 10:27 65 13 96 Room Air 04/27/17 09:44 36.6 76 22 169/87 95 Room Air Notes Mental Status: alert / awake / arousable, participated in evaluation Pt Amnestic to Procedure: Yes Nausea / Vomiting: adequately controlled Pain: adequately controlled Airway Patency, RR, SpO2: stable & adequate BP & HR: stable & adequate Hydration State: stable & adequate Anesthetic Complications: no major complications apparent
[2017-04-27] MEDS: HYDROmorphone HCL 0.5MG/ML 50 ML CASSETTE IV PRN ×3 (14:20→22:46)
--- NOTE | 2017-04-27 15:16 | Medical Consult ---
Consultation Date of Consultation: Apr 27, 2017. Attending Physician: Esdras Brito D.O. History of Present Illness Ms. Villa is post op today for decompression and fusion for a history of spinal stenosis and spondylolisthesis. She currently has some pain in her left leg which has been chronic. ROS Constitutional: no chills, aches, sweats or fever Respiratory: no sob,cough, sputum, or wheezing Cardiac: no chest pain, palpitations, edema, orthopnea or lightheadedness GI: no abdominal pain, nausea, vomiting, diarrhea or constipation : no dysuria or hesitancy Extremities: no joint pain or weakness Skin: no rash All other systems reviewed and negative Pmhx COPD (she states this was ruled out by Dr. Proctor recently and he feels it's more related to asthma), lung adenocarcinoma with lobectomy a year ago, GERD, DMII, CAD, OK 1999 with CABG x and 2003, Moreno Parkinson White with ablation 1999 hypercholesteremia Family History FH: HTN (hypertension) FH: lung disease Heart disease Parents both had heart disease Social History Smoking Status: Former Smoker (quit in 1999 after 20 years) Smokeless Tobacco Use: No Alcohol Use: none Marital Status: Housing Status: lives with significant other Occupation Status: disabled Allergies Coded Allergies: Albuterol (Verified Allergy, Unknown, tachycardia worse d/t moreno/parkinson /white syndrome, 04/27/17) POLLEN (Verified Allergy, Unknown, sneezing and "runny eyes", 04/27/17) Adhesives (Verified Adverse Reaction, Unknown, redness on skin, 04/27/17) Home Medications Active Reported Levalbuterol Tartrate Hfa (Levalbuterol Tartrate) 45 Mcg/Act Aer 1 Puff INH PRN Apresoline (Hydralazine Hcl) 50 Mg Tab 50 Mg PO TID Lasix (Furosemide) 40 Mg Tab 40 Mg PO QAM Levalbuterol Tartrate Hfa (Levalbuterol Tartrate) 45 Mcg/Act Aer 2 Puffs INH PRN Aspirin Ec (Aspirin) 81 Mg Tab 81 Mg PO QAM Iron (Ferrous Sulfate) 325 Mg Tab 325 Mg PO QAM K-Tabs (Potassium Chloride) 10 Meq Tab 10 Meq PO QAM Mevacor (Lovastatin) 10 Mg Tab 10 Mg PO QPM Lantus (Insulin Glargine) 100 Unit/Ml Inj 14 Units INJ HS Glucophage (Metformin Hcl) 500 Mg Tab 500 Mg PO BID Zantac (Ranitidine HCl) 300 Mg Tab 300 Mg PO HS Montelukast Sodium 10 Mg Tab 1 Tab PO QPM 90 Days Imdur Ext Rel (Isosorbide Mononitrate) 60 Mg Ertab 120 Mg PO QAM Nitrostat (Nitroglycerin) 0.4 Mg Tab 0.4 Mg UT PRN Docusate Sodium 100 Mg Cap 1 Cap PO PRN 7 Days Vitamin B12 500MCG (Cyanocobalamin) 500 Mcg Tab 1,000 Mcg PO QAM Calcium + D (Calcium Carbonate-Vitamin D) 1 Tab Tab 1 Tab PO QAM [Performist Neb] 1 Dose INH PRN Januvia (Sitagliptin) 50 Mg Tab 50 Mg PO QAM Coq10 (Coenzyme Q10 (Ubidecarenone)) 100 Mg Cap 100 Mg PO QPM [place]-3 (Fish Oil) 1 Ea Cap 1,000 Mg PO QAM [Nasonex] 1 [place] INTNAS PRN Cozaar (Losartan Potassium) 100 Mg Tab 100 Mg PO QAM Breo Ellipta (Fluticasone Furoate-Vilanterol) 1 Inh Inh 1 Dose INH QAM PRN Aciphex (Rabeprazole Sodium) 20 Mg Tab 20 Mg PO QAM Lasix (Furosemide) 40 Mg Tab 20 Mg PO QPM Cymbalta (Duloxetine Hcl) 60 Mg Cap 60 Mg PO QAM Glipizide Er (Glipizide) 5 Mg Tab 2.5 Mg PO QAM Mag-Ox (Magnesium Oxide) 400 Mg Tab 400 Mg PO QAM Ativan (Lorazepam) 2 Mg Tab 0.5 Mg PO HS Toprol-Xl (Metoprolol Succinate) 50 Mg Tabcr 50 Mg PO BID Current Inpatient Medications Current Inpatient Medications Medications (Trade) Dose Ordered Sig/Avila Route Start Time Stop Time Status Last Admin Dose Admin Cefazolin Sodium 10 ml @ 2.5 mls/min PREOP IV 04/27/17 06:00 04/27/17 18:00 04/27/17 11:10 2.5 MLS/MIN Sodium Chloride 1,000 ml @ 15 mls/hr Q24H IV 04/27/17 06:00 04/28/17 05:59 04/27/17 09:37 15 MLS/HR Fentanyl Citrate (Fentanyl Inj) 50 mcg Q5M PRN IV 04/27/17 10:30 04/27/17 15:30 04/27/17 13:35 50 MCG Morphine Sulfate (MoRPHine SULFATE INJ) 2 mg Q5M PRN IV 04/27/17 10:30 04/27/17 15:30 Ondansetron HCl (Zofran Inj) 4 mg ONE PRN IV 04/27/17 10:30 04/27/17 15:30 Ephedrine Sulfate (EpHEDrine SULFATE INJ) 5 mg Q5M PRN IV 04/27/17 10:30 04/27/17 15:30 Atropine Sulfate (Atropine Sulfate 0.1mg/ml Inj) 0.5 mg Q1M PRN IV 04/27/17 10:30 04/27/17 15:30 Promethazine HCl 12.5 mg/Sodium Chloride 50.5 ml @ 202 mls/hr Q6H PRN IV 04/27/17 12:45 05/27/17 12:44 Ondansetron HCl (Zofran Inj) 4 mg Q6H PRN IV 04/27/17 12:45 05/27/17 12:44 Metoclopramide HCl (Reglan Inj) 10 mg Q6H PRN IV 04/27/17 12:45 05/27/17 12:44 Lorazepam (Ativan Tab) 0.5 mg Q8H PRN PO 04/27/17 12:45 05/27/17 12:44 Lorazepam 0.5 mg/ Syringe 0.25 ml @ 1 mls/min Q8H PRN IV 04/27/17 12:45 05/27/17 12:44 Pneumococcal Polysaccharide Vaccine 1 ea PRN PRN N/A 04/27/17 12:45 05/27/17 12:44 Influenza Virus Vacc Triv Types A&B 1 ea PRN PRN N/A 04/27/17 12:45 05/27/17 12:44 Sodium Chloride 1,000 ml @ 75 mls/hr [id number] IV 04/27/17 15:00 05/27/17 14:59 Polyethylene (Miralax Powder Packet) 17 gm Q6 PO 04/29/17 06:00 05/29/17 05:59 Bisacodyl (Dulcolax Supp) 10 mg DAILY PRN ND 04/27/17 12:45 05/27/17 12:44 Magnesium Hydroxide (Milk Of Magnesia Susp) 30 ml DAILY PRN PO 04/27/17 12:45 05/27/17 12:44 Hydromorphone HCl (Dilaudid Inj) 0.5-1mg prn moder... Q3H PRN IV 04/28/17 06:00 05/12/17 05:59 Oxycodone HCl (Roxicodone Immediate Rel Tab) 5-10mg prn moderate to sev... Q4H PRN PO 04/28/17 06:00 05/12/17 05:59 Acetaminophen (Tylenol Tab) 1,000 mg Q8H PRN PO 04/27/17 12:45 05/27/17 12:44 Acetaminophen 100 ml @ 400 mls/hr Q8H PRN IV 04/27/17 12:45 05/27/17 12:44 Naloxone HCl (Narcan Inj) 0.1 mg Q5M PRN IV 04/27/17 12:45 05/27/17 12:44 Senna/Docusate Sodium (Senokot S Tab) 2 tab HS PO 04/27/17 21:00 05/27/17 20:59 Sodium Biphosphate/ Sodium Phosphate (Fleet Enema) 132 ml ONE PRN ND 04/27/17 12:45 05/27/17 12:44 Hydroxyzine HCl (Vistaril Tab) 25 mg Q8H PRN PO 04/27/17 12:45 05/27/17 12:44 Al Hydroxide/Mg Hydroxide (Maalox Susp) 30 ml Q6H PRN PO 04/27/17 12:45 05/27/17 12:44 Famotidine (Pepcid Tab) 20 mg Q12 PRN PO 04/27/17 12:45 05/27/17 12:44 Diphenhydramine HCl (Benadryl Cap) 25 mg Q6H PRN PO 04/27/17 12:45 05/27/17 12:44 Miscellaneous Information (Discontinue VEHICLE UPHOLSTERER) 1 ea TODAY@0600 N/A 04/28/17 06:00 04/28/17 06:01 Naloxone HCl (Narcan Inj) 0.1 mg Q5M PRN IV 04/27/17 12:45 04/28/17 06:00 Hydromorphone HCl (Dilaudid Lease Broker) 25 mg PRN PRN IV 04/27/17 12:45 04/28/17 06:00 04/27/17 14:20 25 MG Sodium Chloride 1,000 ml @ 15 mls/hr Q24H IV 04/27/17 12:37 04/28/17 06:00 Aspirin (Ecotrin Tab) 81 mg QAM PO 04/28/17 09:00 05/28/17 08:59 Duloxetine HCl (Cymbalta Cap) 60 mg QAM PO 04/28/17 09:00 05/28/17 08:59 Furosemide (Lasix Tab) 20 mg DAILY@1700 PO 04/27/17 17:00 05/27/17 16:59 Furosemide (Lasix Tab) 40 mg QAM PO 04/28/17 09:00 05/28/17 08:59 Hydralazine HCl (Apresoline Tab) 50 mg TID PO 04/27/17 14:00 05/27/17 13:59 Isosorbide Mononitrate (Imdur Ext Rel Tab) 120 mg QAM PO 04/28/17 09:00 05/28/17 08:59 Levalbuterol (Xopenex Hfa Inhaler) 2 puffs PRN PRN INH 04/27/17 12:45 05/27/17 12:44 Losartan Potassium (coZAAR TAB) 100 mg QAM PO 04/28/17 09:00 05/28/17 08:59 Magnesium Oxide (Mag-Ox Tab) 400 mg QAM PO 04/28/17 09:00 05/28/17 08:59 Metoprolol Succinate (Toprol Xl Tab) 50 mg BID PO 04/27/17 21:00 05/27/17 20:59 Montelukast Sodium (Singulair Tab) 10 mg QPM PO 04/27/17 21:00 05/27/17 20:59 Nitroglycerin (Nitrostat Tab) 0.4 mg Q5M PRN UT 04/27/17 12:45 05/27/17 12:44 Lovastatin (Mevacor Tab) 10 mg QDD PO 04/27/17 17:45 05/27/17 17:44 Potassium Chloride (Klor-Con M10) 10 meq QAM PO 04/28/17 09:00 05/28/17 08:59 Ranitidine HCl (zANTac TAB) 300 mg HS PO 04/27/17 21:00 05/27/17 20:59 Cefazolin Sodium 2000 mg/Syringe 10 ml @ 2.5 mls/min Q8H IV 04/27/17 20:00 04/28/17 04:03 Physical Exam Date Time Temp Pulse Resp B/P (MAP) Pulse Ox O2 Delivery O2 Flow Rate FiO2 04/27/17 14:15 37.0 82 18 120/63 (82) 92 Nasal Cannula 2.0 04/27/17 14:15 Nasal Cannula 2.0 04/27/17 14:00 82 16 121/53 99 Nasal Cannula 3 04/27/17 13:45 88 16 117/63 99 Nasal Cannula 3 04/27/17 13:35 36.3 85 16 118/63 99 Nasal Cannula 3 04/27/17 13:25 78 16 126/54 99 Nasal Cannula 3 04/27/17 13:15 79 14 137/54 100 Oxymask 3 04/27/17 13:05 79 14 138/51 100 Oxymask 3 04/27/17 12:55 77 14 130/48 100 Oxymask 5 04/27/17 12:47 36.3 84 14 141/85 96 Oxymask 5 04/27/17 10:27 65 13 96 Room Air 04/27/17 09:44 36.6 76 22 169/87 95 Room Air General: no distress Eyes: normal inspection, PERLL Respiratory: chest non tender, clear to auscultation, normal breath sounds, no respiratory distress, no accessory muscle use Cardiac: regular rate and rhythm, no rub or gallop, 2/6 systolic murmur LUSB, no edema, no jvd GI/: active bowel sounds, no abd pain or tenderness, soft, non distended Extremities: normal range of motion, normal strength, non tender Neuro/Psych: alert and oriented x 3, normal mood and affect Skin: normal color, dry, dressing on back dry and intact, GHAZALA with serosanguineous drainage Laboratory Results Last 24 Hours Test 04/27/17 09:28 04/27/17 13:26 Sodium Level 136 mmol/L Potassium Level 4.2 mmol/L Chloride Level 101 mmol/L Carbon Dioxide Level 26 mmol/L Anion Gap 9.0 mmol/L Blood Urea Nitrogen 28 mg/dl Creatinine 1.73 mg/dl Est Creatinine Clear Calc Drug Dose 29.9 ml/min Estimated GFR () 35.0 Estimated GFR (Non- 30.2 BUN/Creatinine Ratio 16.2 Bedside Glucose 165 mg/dl 120 mg/dl Random Glucose 141 mg/dl Calcium Level 9.7 mg/dl Assessment & Plan Ms. Villa is a 66 year old woman who is s/p decompression and fusion 04/27. Pmhx COPD (she states this was ruled out by Dr. Proctor recently and he feels it's more related to asthma), lung adenocarcinoma with lobectomy a year ago, GERD, DMII, CAD, [place] 1999 with CABG x 4 and 2003, Moreno Parkinson White with ablation 1999, hypercholesteremia Post op 04/27 - monitor for s/s of hemorrhage - cbc am - dvt prophylaxis, bowel regimen, pain control per primary team DMII - hold metformin, januvia, glipizide - Continue home lantus - ss added - bsgs ac &hs COPD/Asthma - continue home inhalers - titrate O2 per protocol CAD/hypercholesteremia - continue ASA when acceptable to primary team - continue metoprolol and statin GERD - continue home ranitidine Resident Physician Supervision Note: Pt evaluated independently. I discussed the case with the resident and agree with the findings and plan as documented in the note. Any exceptions or clarifications are listed here: 66 y/o F Hx COPD or asthma, CAD, DM II, HPL, WPW, lung adenocarcinoma - lobectomy - ablated 1999, spinal stenosis Presented for elective decompression/fusion. Recovering well post-op Denies CP, SOB, N/V, lightheadedness or excessive pain OE AAO x 3 S1,2 R CTAB - poor effort NT, ND No CCE P: DM - hold all oral meds - placed on SS + Lantus CAD - cont ASA at earliest time - cont B hari and Statin COPD/asthma - inhalers as prescribed Pain is currently controlled -cont IVF x 24hrs Documented By: Chris Nesbitt
[2017-04-27] MEDS ORDERED: DEXTROSE 50% 50 ML SYR IV PRN (15:30)
[2017-04-27] MEDS ORDERED: GLUCAGON FOR INJ 1 MG VIAL SQ PRN (15:30)
[2017-04-27] MEDS ORDERED: GLUCOSE 40% GEL 15 GM TUBE PO PRN (15:30)
[2017-04-27] MEDS ORDERED: GLUCOSE 10 TABS/TUBE PO PRN (15:30)
[2017-04-27] MEDS: FUROSEMIDE 20 MG TAB PO SCH (17:01)
[2017-04-27] MEDS: LOVASTATIN 20 MG TAB PO SCH (17:03)
[2017-04-27] MEDS: INSULIN ASPART 100 UNITS/ML 3 ML PEN SC SCH ×2 (17:08→21:25)
[2017-04-27] MEDS: CEFAZOLIN IV 2,000 MG in SYRINGE 0 ML IV SCH (21:11)
[2017-04-27] MEDS: METOPROLOL SUCC 50MG EXT REL TAB PO SCH (21:13)
[2017-04-27] MEDS: MONTELUKAST SOD 10 MG TAB PO SCH (21:13)
[2017-04-27] MEDS: RANITIDINE HCL 150 MG TAB PO SCH (21:14)
[2017-04-27] MEDS: DOCUSATE SODIUM/SENNA 50/8.6MG TAB PO SCH (21:14)
[2017-04-27] MEDS: INSULIN GLARGINE SOLOSTAR 100 UNITS/ML 3 ML PEN SQ SCH (21:26)
[2017-04-27] MEDS ORDERED: COUGH DROP (SUGAR FREE) LOZ 24 LOZ/1 BOX LOZ ONE (22:51)
[2017-04-28] VITALS (7 sets, daily range): BP systolic 123–149; BP diastolic 60–71; PULSE 78–98; TEMP 36.9–37.9; O2SAT 92–97
[2017-04-28] MEDS: CEFAZOLIN IV 2,000 MG in SYRINGE 0 ML IV SCH (03:31)
[2017-04-28] MEDS ORDERED: NURSING VERBAL MED ORDER ONE (03:45)
[2017-04-28] MEDS ORDERED: DC PCA SCH (06:00)
[2017-04-28 06:16] LABS: BASO % 0.1 %; BASO ABS # 0.01 K/uL (0-0.2); HEMATOCRIT 32.9 % (37-47); HEMOGLOBIN 10.7 g/dL (12.0-16.0); IG# 0.02 K/uL (0.00-0.02); LYMPH % 11.5 %; LYMPH ABS # 1.09 K/uL (1.2-3.4); MEAN CELL VOLUME 87.7 fL (80-100); MEAN CORPUSCULAR HEMOGLOBIN 28.5 pg (25-34); MEAN CORPUSCULAR HGB CONC 32.5 g/dl (32-36); MEAN PLATELET VOLUME 10.1 fL (7.4-10.4); MONO % 10.1 %; MONO ABS # 0.96 K/uL (0.11-0.59); NEUT % 78.1 %; NEUT ABS # 7.39 K/uL (1.4-6.5); PLATELET COUNT 135 K/uL (130-400); RED CELL DISTRIBUTION WIDTH SD 45.4 fL (36.4-46.3); WHITE BLOOD COUNT 9.47 K/uL (4.8-10.8)
[2017-04-28 06:57] LABS: CALCIUM 8.3 mg/dl (8.5-10.1); CREATININE 1.9 mg/dl (0.60-1.20)
[2017-04-28] MEDS: OXYCODONE HCL IR 5 MG TAB (IMMEDIATE RELEASE) PO PRN ×2 (07:47→12:48)
[2017-04-28] MEDS ORDERED: RXC5 PO (07:51)
--- NOTE | 2017-04-28 07:52 | Discharge Instructions ---
Discharge Instructions Date of Service Apr 28, 2017. Admission Reason for Admission: Lumbar Spinal Stenosis L4-5 Discharge Discharge Diagnosis / Problem: lumbar stenosis Discharge Goals Goal(s): Improve function Activity Recommendations Activity Limitations: per Instructions/Follow-up section . Instructions / Follow-Up Instructions / Follow-Up ACTIVITY RECOMMENDATIONS: SELF CARE INSTRUCTIONS AFTER THORACIC/LUMBAR FUSIONS 1. You may walk to your tolerance. It is good exercise for your legs and back. Expect some back and intermittent leg aches and pains. 2. You may perform "counter-top" level activities (make a sandwich, carlos with a project, etc.). 3. No bending or lifting of more than 10 pounds or back twisting of any nature (roll like a log when turning in bed). 4. You may ride in a car for 20-30 minutes at a time. No driving until after your first visit with your doctor. 5. Frequent changes of position and restricting sitting to 30 minutes at a time will help limit the amount of back spasms and stiffness you may experience. 6. You may discontinue the use of ambulatory aids (cane, crutches, etc.) once your strength and confidence allow. 7. You may double head machine operator the shower and let water strike your incision when you arrive home at least once daily. Do not take a tub bath, sit in a hot tub or go into a swimming pool until after your first recheck in the office. SPECIAL CARE INSTRUCTIONS: VERY IMPORTANT TO READ AND REVIEW A. Your surgical incision has been closed with a cosmetic suture under the skin that will dissolve in about 6 weeks. In 14 days, you can use a pair of clean scissors and cut the suture that is left outside of the skin at the ends of your incision. 1. The small skin tapes can be removed 7 days after surgery if they have not fallen off by that point. 2. You may keep the wound open to air as much as possible to promote healing after post-op day number 5 unless told otherwise by your doctor. 3. If you think the wound looks like it is becoming infected (redness or worsening drainage) and/or you are experiencing fever, chill or worsening back pain and muscle spasms, contact the office so that we may evaluate you as soon as possible. B. Complications are uncommon, but please contact us if you have any signs or symptoms of: 1. wound infection (fever higher than 102.5 degrees F, redness, separation of wound, drainage, or increasing pain from the incision) 2. blood clots in legs (pain, swelling, redness and warmth in legs) 3. urinary tract infection (fever higher than 102.5 degrees F, burning upon urination or increased frequency of urination) 4. nerve problems (inability to walk on your toes or heels, numbness, loss of bowel or bladder control) 5. any other symptoms that concern you C. Please call the office at if you have any concerns or questions about your operation or recovery. D. No smoking! Smoking drastically decreases the chance of a solid fusion. E. Do not take any anti-inflammatory medications (Indocin, Advil, Motrin, Aspirin, Naprosyn, etc.) as these may inhibit the chance of a solid fusion. Tylenol is okay to take for pain. MANAGING PAIN AFTER SPINAL SURGERY 1. Narcotic medication is intended for short-term use and will be provided for surgical pain. Surgical pain usually lasts for a period of 4-6 weeks. Narcotic medication includes Percocet, Vicodin, Darvocet, Tylenol #3 or Lortab. 2. Longer-term pain is more appropriately treated with non-narcotic medication such as Tylenol ES. 3. Muscle spasm is not appropriately treated with narcotics. Muscle relaxers such as Soma, Flexeril or Skelaxin can be used along with Tylenol ES. 4. Remember that we all live with some "aches and pains". This is not unusual or uncommon after an injury or as we get older. a. Back pain is expected and may include muscle spasms for 4 to 6 weeks after surgery. The pain should gradually improve. If the pain worsens for no apparent reason, please contact the office. b. Intermittent leg pain may also be experienced and should not be concerned about unless it worsens for no apparent reason. If so, please contact the office. 5. We will provide appropriate medication within the normal guidelines of their prescribed use. We will also be very cautious and aware of potential abuse and extended duration of patients' medication needs. a. Pain medications are for your comfort and to assist with sleep and rest so that the tissue can heal. They are not provided in order to return to normal activity and should not be used through the day. To do so or worsening pain at night can result from ongoing tissue damage and development of tolerance to the prescribed medicine. 6. Please allow 2-3 days to process refills. Prescriptions will not be mailed but must be picked up at the office. FOLLOW UP VISIT: Keep your scheduled follow-up appointment. Any questions, please call the office at . Current Hospital Diet Patient's current hospital diet: Diabetes Type 2 Diet Discharge Diet Recommended Diet: Regular Diet Procedures Procedures Performed: #1 lumbar decompression via fast-paced foraminotomies L3 4 and L4 5. #2 posterior spinal fusion L4 5. #3 posterior instrumentation L45. #4 interbody fusion L4 5. #5 placement peek cage 12 x 22 mm L45. #6 base of locally harvested morcellized autograft in the posterior lateral gutters. #7 placement InFUSE collagen sponge with master graft in the posterior lateral gutters in ostial amp of the interbody space. Pending Studies Studies pending at discharge: no Medical Emergencies . Who to Call and When: Medical Emergencies: If at any time you feel your situation is an emergency, please call 911 immediately. . Non-Emergent Contact Non-Emergency issues call your: Primary Care Provider . "Provider Documentation" section prepared by Esdras Brito. . VTE Core Measure Inpt VTE Proph given/why not?: Ro Still, SCD's
[2017-04-28] MEDS: INSULIN ASPART 100 UNITS/ML 3 ML PEN SC SCH ×4 (08:00→20:54)
--- NOTE | 2017-04-28 08:47 | Hospitalist Progress Note ---
Hospitalist Progress Note Date of Service Apr 28, 2017. (Sakina Campos ., PA-C) Subjective Pt evaluation today including: conversation w/ patient, conversation w/ family ( at bedside ) Voiding: no voiding problems Patient resting in bed. Feeling well. Eating and drinking OK. +flatus, no BM postop- last BM on 04/27, notes she normally does not more her bowels everyday. Pain is currently well controlled- removed Dilaudid SPEECH AND LANGUAGE ASSISTANT this AM. Patient denies any fever, chills, sweats, lightheadedness, dizziness, vision changes, CP, palpitations, edema, SOB, wheezing, cough, abdominal pain, nausea, vomiting, diarrhea, urinary symptoms, melena, numbness/tingling, weakness, anxiety/depression, active bleeding, or new skin discoloration/changes. (Sakina Campos ., PA-C) Medications Current Inpatient Medications Medications (Trade) Dose Ordered Sig/Avila Route Start Time Stop Time Status Last Admin Dose Admin Promethazine HCl 12.5 mg/Sodium Chloride 50.5 ml @ 202 mls/hr Q6H PRN IV 04/27/17 12:45 05/27/17 12:44 Ondansetron HCl (Zofran Inj) 4 mg Q6H PRN IV 04/27/17 12:45 05/27/17 12:44 Metoclopramide HCl (Reglan Inj) 10 mg Q6H PRN IV 04/27/17 12:45 05/27/17 12:44 Lorazepam (Ativan Tab) 0.5 mg Q8H PRN PO 04/27/17 12:45 05/27/17 12:44 Lorazepam 0.5 mg/ Syringe 0.25 ml @ 1 mls/min Q8H PRN IV 04/27/17 12:45 05/27/17 12:44 Pneumococcal Polysaccharide Vaccine 1 ea PRN PRN N/A 04/27/17 12:45 05/27/17 12:44 Influenza Virus Vacc Triv Types A&B 1 ea PRN PRN N/A 04/27/17 12:45 05/27/17 12:44 Polyethylene (Miralax Powder Packet) 17 gm Q6 PO 04/29/17 06:00 05/29/17 05:59 Bisacodyl (Dulcolax Supp) 10 mg DAILY PRN OR 04/27/17 12:45 05/27/17 12:44 Magnesium Hydroxide (Milk Of Magnesia Susp) 30 ml DAILY PRN PO 04/27/17 12:45 05/27/17 12:44 Hydromorphone HCl (Dilaudid Inj) 0.5-1mg prn moder... Q3H PRN IV 04/28/17 06:00 05/12/17 05:59 Oxycodone HCl (Roxicodone Immediate Rel Tab) 5-10mg prn moderate to sev... Q4H PRN PO 04/28/17 06:00 05/12/17 05:59 04/28/17 07:47 10 MG Acetaminophen (Tylenol Tab) 1,000 mg Q8H PRN PO 04/27/17 12:45 05/27/17 12:44 04/28/17 09:57 1,000 MG Acetaminophen 100 ml @ 400 mls/hr Q8H PRN IV 04/27/17 12:45 05/27/17 12:44 Naloxone HCl (Narcan Inj) 0.1 mg Q5M PRN IV 04/27/17 12:45 05/27/17 12:44 Senna/Docusate Sodium (Senokot S Tab) 2 tab HS PO 04/27/17 21:00 05/27/17 20:59 04/27/17 21:14 2 TAB Sodium Biphosphate/ Sodium Phosphate (Fleet Enema) 132 ml ONE PRN OR 04/27/17 12:45 05/27/17 12:44 Hydroxyzine HCl (Vistaril Tab) 25 mg Q8H PRN PO 04/27/17 12:45 05/27/17 12:44 Al Hydroxide/Mg Hydroxide (Maalox Susp) 30 ml Q6H PRN PO 04/27/17 12:45 05/27/17 12:44 Diphenhydramine HCl (Benadryl Cap) 25 mg Q6H PRN PO 04/27/17 12:45 05/27/17 12:44 Aspirin (Ecotrin Tab) 81 mg QAM PO 04/28/17 09:00 05/28/17 08:59 04/28/17 09:58 81 MG Duloxetine HCl (Cymbalta Cap) 60 mg QAM PO 04/28/17 09:00 05/28/17 08:59 04/28/17 09:58 60 MG Furosemide (Lasix Tab) 20 mg DAILY@1700 PO 04/27/17 17:00 05/27/17 16:59 04/27/17 17:01 20 MG Furosemide (Lasix Tab) 40 mg QAM PO 04/28/17 09:00 05/28/17 08:59 Future Hold Hydralazine HCl (Apresoline Tab) 50 mg TID PO 04/27/17 14:00 05/27/17 13:59 04/28/17 09:57 50 MG Isosorbide Mononitrate (Imdur Ext Rel Tab) 120 mg QAM PO 04/28/17 09:00 05/28/17 08:59 04/28/17 09:58 120 MG Levalbuterol (Xopenex Hfa Inhaler) 2 puffs PRN PRN INH 04/27/17 12:45 05/27/17 12:44 Losartan Potassium (coZAAR TAB) 100 mg QAM PO 04/28/17 09:00 05/28/17 08:59 Future Hold Magnesium Oxide (Mag-Ox Tab) 400 mg QAM PO 04/28/17 09:00 05/28/17 08:59 04/28/17 09:59 400 MG Metoprolol Succinate (Toprol Xl Tab) 50 mg BID PO 04/27/17 21:00 05/27/17 20:59 04/28/17 10:00 50 MG Montelukast Sodium (Singulair Tab) 10 mg QPM PO 04/27/17 21:00 05/27/17 20:59 04/27/17 21:13 10 MG Nitroglycerin (Nitrostat Tab) 0.4 mg Q5M PRN UT 04/27/17 12:45 05/27/17 12:44 Lovastatin (Mevacor Tab) 10 mg QDD PO 04/27/17 17:45 05/27/17 17:44 04/27/17 17:03 10 MG Potassium Chloride (Klor-Con M10) 10 meq QAM PO 04/28/17 09:00 05/28/17 08:59 04/28/17 09:59 10 MEQ Ranitidine HCl (zANTac TAB) 300 mg HS PO 04/27/17 21:00 05/27/17 20:59 04/27/17 21:14 300 MG Insulin Glargine (Lantus Solostar Pen) 14 units HS SQ 04/27/17 21:00 05/27/17 20:59 04/27/17 21:26 14 UNITS Insulin Aspart (novoLOG ASPART) SLIDING SCALE If C... ACHS SC 04/27/17 17:15 05/27/17 17:14 04/27/17 21:25 2 UNITS Glucose (Glucose 40% Gel) 15-30 GRAMS 15 GRAMS... UD PRN PO 04/27/17 15:30 05/27/17 15:29 Glucose (Glucose Chew Tab) 4-8 Tablets 4 Tabl... UD PRN PO 04/27/17 15:30 05/27/17 15:29 Dextrose (Dextrose 50% 50ML Syringe) 25-50ML OF 50% DW IV FOR... UD PRN IV 04/27/17 15:30 05/27/17 15:29 Glucagon (Glucagon Inj) 1 mg UD PRN SQ 04/27/17 15:30 05/27/17 15:29 (Sakina Campos, PAHiroC) Objective Vital Signs Date Time Temp Pulse Resp B/P (MAP) Pulse Ox O2 Delivery O2 Flow Rate FiO2 04/28/17 07:23 37.0 78 17 149/60 (89) 97 Room Air 04/28/17 03:03 36.9 82 16 123/66 (85) 92 Room Air 04/27/17 22:50 Room Air 04/27/17 22:49 37.1 95 15 132/61 (84) 95 Room Air 04/27/17 21:11 95 134/58 (83) 04/27/17 20:00 36.6 85 16 135/68 (90) 95 Room Air 04/27/17 17:14 36.9 86 16 122/63 (82) 96 Nasal Cannula 2.0 04/27/17 16:25 Nasal Cannula 2.0 04/27/17 16:15 37.0 83 16 99/56 (70) 98 Nasal Cannula 2.0 04/27/17 15:15 37.0 82 18 96/57 (70) 98 Nasal Cannula 2.0 04/27/17 15:00 88 18 107/55 (72) 99 04/27/17 14:15 37.0 82 18 120/63 (82) 92 Nasal Cannula 2.0 04/27/17 14:15 Nasal Cannula 2.0 04/27/17 14:00 82 16 121/53 99 Nasal Cannula 3 04/27/17 13:45 88 16 117/63 99 Nasal Cannula 3 04/27/17 13:35 36.3 85 16 118/63 99 Nasal Cannula 3 04/27/17 13:25 78 16 126/54 99 Nasal Cannula 3 04/27/17 13:15 79 14 137/54 100 Oxymask 3 04/27/17 13:05 79 14 138/51 100 Oxymask 3 04/27/17 12:55 77 14 130/48 100 Oxymask 5 04/27/17 12:47 36.3 84 14 141/85 96 Oxymask 5 04/27/17 10:27 65 13 96 Room Air 04/27/17 09:44 36.6 76 22 169/87 95 Room Air (Sakina Campos ., PA-C) Physical Exam General Appearance: no apparent distress, + obese Eyes: normal inspection, PERRL ENT: hearing grossly normal Neck: supple Respiratory/Chest: lungs clear, no respiratory distress, no accessory muscle use Cardiovascular: regular rate, rhythm Abdomen: normal bowel sounds, non tender, soft Extremities: no pedal edema, no calf tenderness Neurologic/Psychiatric: no motor/sensory deficits, alert, normal mood/affect, oriented x 3 Skin: normal color, warm/dry, no rash (Sakina Campos ., PA-C) Laboratory Results Last 24 Hours Test 04/27/17 09:28 04/27/17 09:35 04/27/17 13:26 04/27/17 17:01 Sodium Level 136 mmol/L Potassium Level 4.2 mmol/L Chloride Level 101 mmol/L Carbon Dioxide Level 26 mmol/L Anion Gap 9.0 mmol/L Blood Urea Nitrogen 28 mg/dl Creatinine 1.73 mg/dl Est Creatinine Clear Calc Drug Dose 29.9 ml/min Estimated GFR () 35.0 Estimated GFR (Non- 30.2 BUN/Creatinine Ratio 16.2 Bedside Glucose 165 mg/dl 120 mg/dl 171 mg/dl Random Glucose 141 mg/dl Calcium Level 9.7 mg/dl Hepatitis C Antibody Screen NEG Test 04/27/17 21:00 04/28/17 05:49 04/28/17 07:46 Bedside Glucose 202 mg/dl 111 mg/dl White Blood Count 9.47 K/uL Red Blood Count 3.75 M/uL Hemoglobin 10.7 g/dL Hematocrit 32.9 % Mean Corpuscular Volume 87.7 fL Mean Corpuscular Hemoglobin 28.5 pg Mean Corpuscular Hemoglobin Concent 32.5 g/dl Platelet Count 135 K/uL Mean Platelet Volume 10.1 fL Neutrophils (%) (Auto) 78.1 % Lymphocytes (%) (Auto) 11.5 % Monocytes (%) (Auto) 10.1 % Eosinophils (%) (Auto) 0.0 % Basophils (%) (Auto) 0.1 % Neutrophils # (Auto) 7.39 K/uL Lymphocytes # (Auto) 1.09 K/uL Monocytes # (Auto) 0.96 K/uL Eosinophils # (Auto) 0.00 K/uL Basophils # (Auto) 0.01 K/uL RDW Standard Deviation 45.4 fL RDW Coefficient of Variation 14.0 % Immature Granulocyte % (Auto) 0.2 % Immature Granulocyte # (Auto) 0.02 K/uL Sodium Level 140 mmol/L Potassium Level 5.0 mmol/L Chloride Level 107 mmol/L Carbon Dioxide Level 28 mmol/L Anion Gap 5.0 mmol/L Blood Urea Nitrogen 25 mg/dl Creatinine 1.90 mg/dl Est Creatinine Clear Calc Drug Dose 27.3 ml/min Estimated GFR () 31.3 Estimated GFR (Non- 27.0 BUN/Creatinine Ratio 13.3 Random Glucose 113 mg/dl Calcium Level 8.3 mg/dl (Sakina Campos, MARGARITAC) Assessment and Plan Ms. Villa is a 66 year old woman who is s/p decompression and fusion 04/27. Pmhx COPD (she states this was ruled out by Dr. Proctor recently and he feels it's more related to asthma), lung adenocarcinoma with lobectomy a year ago, GERD, DMII, CAD, GA 2000 with CABG x 4 and 2003, Colbert Parkinson White with ablation 1999, hypercholesteremia s/p decompression and fusion on 04/[address] Brito: - Surgical management, pain management, PT/OT, and DVT prophylaxis as per primary team - Bowel regimen ordered - Encourage incentive spirometer - CBC and PRP- STABLE T2DM: - Hold Metformin, Januvia, Glipizide while inpatient - Continue Lantus 14 u HS - BSG ACHS and ISS CKD stage III- baseline material dispatcher 1.6, s/p solitary kidney due to nephrectomy for a large benign tumor: - Follow PRP- material dispatcher 1.9 today - Avoid nephrotoxic agents and renally dose medications as appropriate COPD, asthma, DEANA: - O2 protocol, wean as tolerated - Continue home inhalers - Non- compliant with CPAP machine- states she cannot tolerate- encouraged use of machine CAD s/p GA and CABG, WPW, hypercholesterolemia, PVD, HTN: - Continue ASA, Imdur, Metoprolol, Hydralazine, Lovastatin, KCL supplement, Mag supplement - Hold Losartan and Lasix due to bump in kidney function GERD, GI prophylaxis: Continue Zantac DVT prophylaxis: ASA as per primary team Code Status: LEVEL I, FULL Dispo: As per primary team (Sakina Campos, KIM) I personally interviewed and examined the patient. I agree with history of present illness and physical exam mentioned above, I also performed my own history taking and examination. Past medical history and review of system has been obtained by myself I reviewed all pertinent labs and studies Reviewed current medications I discussed and formulated of the assessment and plan mentioned above with RHIANNON Campos Please refer to the Summary mentioned below. Assessment: severe osteoarthritis and lower back pain that failed outpatient conservative measures. Patient presented to the hospital for an elective orthopedic procedure s/p decompression and fusion on 04/[address] Brito Patient also has chronic kidney disease stage 3-4, currently at baseline Diabetes mellitus type 2 Coronary artery disease status post GA/CABG White Parkinson syndrome status post ablation Dyslipidemia COPD Plan Status post orthopedic procedure, went uneventful full Patient tolerated procedure well with minimal blood loss Appears to be stable Continue outpatient medications except metformin/glipizide which we will do insulin sliding scale and stent Follow-up labs Ensure adequate oral/parenteral intake Pain management Physical therapy initiation as per primary orthopedic team DVT prophylaxis as per the choice of primary orthopedic team General Appearance: not in acute distress Eyes: normal Sclerae, extraocular muscle intact ENT: hearing grossly normal Neck: supple Respiratory/Chest: normal air entry bilateral ,no respiratory distress, no accessory muscle use Cardiovascular: regular rate, rhythm, no murmur Abdomen: non tender, soft, no masses Extremities: no edema Neurologic/Psychiatric: Awake alert oriented times place and person moves all extremities sensation intact cranial nerves II-12 appear to be intact Skin: normal color, warm/dry, no rash Hortencia Augustine MD, [facility] hospitalist group (Hortencia Matthew MD)
[2017-04-28] MEDS ORDERED: LOSARTAN POTASSIUM 50 MG TAB PO SCH (09:00)
[2017-04-28] MEDS ORDERED: FUROSEMIDE 40 MG TAB PO SCH (09:00)
[2017-04-28] MEDS ORDERED: SITAGLIPTIN 25 MG TAB PO SCH (09:00)
[2017-04-28] MEDS: ACETAMINOPHEN 500 MG TAB PO PRN ×2 (09:57→20:54)
[2017-04-28] MEDS: DULOXETINE HCL 60 MG CAP PO SCH (09:58)
[2017-04-28] MEDS: ASPIRIN 81 MG ECTAB PO SCH (09:58)
[2017-04-28] MEDS: ISOSORBIDE MONONITRATE 60 MG TABCR PO SCH (09:58)
[2017-04-28] MEDS: POTASSIUM CHLORIDE 10 MEQ TABCR PO SCH (09:59)
[2017-04-28] MEDS: MAGNESIUM OXIDE 400 MG TAB PO SCH (09:59)
[2017-04-28] MEDS: METOPROLOL SUCC 50MG EXT REL TAB PO SCH ×2 (10:00→20:49)
--- NOTE | 2017-04-28 10:37 | Clinical Documentation Query ---
CLINICAL DOCUMENTATION QUERY QUERY 1 OF 2 A 66 year old woman who is s/p decompression and fusion 04/27. In your clinical opinion is this patient being managed for: ( x ) Acute kidney failure ( ) Not Agree ( ) Other explanation of clinical findings (Please Explain) ( ) Unable to determine (Please Define) ( ) Need to Discuss The medical record reflects the following clinical findings, treatment, and risk factors. Clinical Indicators: Creatinine 1.52 baseline 01/2017 trending up to 1.96 Treatment: IV hydration, serial PRPs Risk Factors: CKD, CAD, HTN, PVD, s/p surgical intervention QUERY 2 OF 2 In your clinical opinion is this patient being managed for: ( x ) Expected acute blood loss anemia in the setting of surgical event ( ) Not Agree ( ) Other explanation of clinical findings (Please Explain) ( ) Unable to determine (Please Define) ( ) Need to Discuss The medical record reflects the following clinical findings, treatment, and risk factors. Clinical Indicators: Hgb 14.4 trending down to 10.7, GHAZALA drain 275 ml Treatment: Type and screen 2 units PRBCs, serial CBCs, IV hydration Risk Factors: S/P surgical event Please clarify and document your clinical opinion in the progress notes and discharge summary. Terms such as "probable", "suspected", "likely", "questionable", "possible", or "still to be ruled out" are acceptable. IF IN AGREEMENT, YOU MUST DOCUMENT ABOVE DIAGNOSTIC STATEMENT IN DAILY PROGRESS NOTES AND DISCHARGE SUMMARY. This document is not part of the patient's record. Thank You, Cat Pope RN [phone]
--- NOTE | 2017-04-28 12:09 | Progress Note ---
Progress Note Date of Service Apr 28, 2017. Progress Note Patient's back pain is controlled. She is awaiting physical therapy. Her vital signs are stable. On exam she is good strength testing appeared comfortable. Assessment status post lumbar decompression fusion. Jordana this time will continue physical therapy assess her progress possible discharge home Tuesday or Tuesday.
--- NOTE | 2017-04-28 13:48 | Anesthesiology Progress Note ---
Anesthesia Post Op Note Date & Time Apr 28, 2017 at 13:47 Vital Signs Vital Signs Past 12 Hours Date Time Temp Pulse Resp B/P (MAP) Pulse Ox O2 Delivery O2 Flow Rate FiO2 04/28/17 11:12 36.9 88 17 130/70 (90) 93 Room Air 04/28/17 07:30 Room Air 04/28/17 07:23 37.0 78 17 149/60 (89) 97 Room Air 04/28/17 03:03 36.9 82 16 123/66 (85) 92 Room Air Notes Mental Status: alert / awake / arousable, participated in evaluation Pt Amnestic to Procedure: Yes Nausea / Vomiting: adequately controlled Pain: adequately controlled Airway Patency, RR, SpO2: stable & adequate BP & HR: stable & adequate Hydration State: stable & adequate Anesthetic Complications: no major complications apparent
[2017-04-28] MEDS: ONDANSETRON INJ 2 MG/ML 2 ML VIAL IV PRN ×2 (15:31→23:24)
[2017-04-28] MEDS: HYDROmorphone INJ 0.5 MG/0.5 ML SYR IV PRN ×2 (15:31→19:13)
[2017-04-28] MEDS: FUROSEMIDE 20 MG TAB PO SCH (17:12)
[2017-04-28] MEDS: LOVASTATIN 20 MG TAB PO SCH (18:03)
[2017-04-28] MEDS: MONTELUKAST SOD 10 MG TAB PO SCH (20:49)
[2017-04-28] MEDS: RANITIDINE HCL 150 MG TAB PO SCH (20:49)
[2017-04-28] MEDS: DOCUSATE SODIUM/SENNA 50/8.6MG TAB PO SCH (20:49)
[2017-04-28] MEDS: INSULIN GLARGINE SOLOSTAR 100 UNITS/ML 3 ML PEN SQ SCH (20:57)
[2017-04-29] MEDS: POLYETHYLENE (MIRALAX) 17 GM PACK PO SCH ×2 (05:37→12:04)
[2017-04-29 07:03] LABS: HEMATOCRIT 33.2 % (37-47); HEMOGLOBIN 10.8 g/dL (12.0-16.0); MEAN CELL VOLUME 87.6 fL (80-100); MEAN CORPUSCULAR HEMOGLOBIN 28.5 pg (25-34); MEAN CORPUSCULAR HGB CONC 32.5 g/dl (32-36); MEAN PLATELET VOLUME 9.9 fL (7.4-10.4); PLATELET COUNT 144 K/uL (130-400); RED CELL DISTRIBUTION WIDTH CV 14.2 % (11.5-14.5); RED CELL DISTRIBUTION WIDTH SD 45.4 fL (36.4-46.3); WHITE BLOOD COUNT 8.53 K/uL (4.8-10.8)
[2017-04-29 07:36] LABS: CALCIUM 9.1 mg/dl (8.5-10.1); CREATININE 1.7 mg/dl (0.60-1.20); POTASSIUM 4.4 mmol/L (3.5-5.1)
[2017-04-29 07:55] VITALS: BP 161/74; PULSE 80; TEMP 37.2; O2SAT 92
[2017-04-29] MEDS: INSULIN ASPART 100 UNITS/ML 3 ML PEN SC SCH ×2 (08:00→12:00)
[2017-04-29] MEDS: DULOXETINE HCL 60 MG CAP PO SCH (08:57)
[2017-04-29] MEDS: ASPIRIN 81 MG ECTAB PO SCH (08:57)
[2017-04-29] MEDS: POTASSIUM CHLORIDE 10 MEQ TABCR PO SCH (08:58)
[2017-04-29] MEDS: MAGNESIUM OXIDE 400 MG TAB PO SCH (08:58)
[2017-04-29] MEDS: ISOSORBIDE MONONITRATE 60 MG TABCR PO SCH (08:58)
[2017-04-29] MEDS: METOPROLOL SUCC 50MG EXT REL TAB PO SCH (09:00)
[2017-04-29] MEDS: ONDANSETRON INJ 2 MG/ML 2 ML VIAL IV PRN (09:00)
[2017-04-29] MEDS: HYDROmorphone INJ 0.5 MG/0.5 ML SYR IV PRN ×2 (09:01→12:06)
[2017-04-29 09:23] VITALS: BP 161/65; PULSE 90; O2SAT 94
--- NOTE | 2017-04-29 11:17 | Hospitalist Progress Note ---
Hospitalist Progress Note Date of Service Apr 29, 2017. (Sakina Campos ., KIM) Subjective Pt evaluation today including: conversation w/ patient, conversation w/ family ( at bedside ), physical exam, lab review, review of inpatient medication list Voiding: no voiding problems Patient resting in bed. Working with PT. Eating and drinking OK. +flatus, no BM postop. Pain is well controlled. Patient denies any fever, chills, sweats, lightheadedness, dizziness, vision changes, CP, palpitations, edema, SOB, wheezing, cough, abdominal pain, nausea, vomiting, diarrhea, urinary symptoms, melena, numbness/tingling, weakness, anxiety/depression, active bleeding, or new skin discoloration/changes. (Sakina Campos ., MARGARITAC) Medications Current Inpatient Medications Medications (Trade) Dose Ordered Sig/Avila Route Start Time Stop Time Status Last Admin Dose Admin Promethazine HCl 12.5 mg/Sodium Chloride 50.5 ml @ 202 mls/hr Q6H PRN IV 04/27/17 12:45 05/27/17 12:44 Ondansetron HCl (Zofran Inj) 4 mg Q6H PRN IV 04/27/17 12:45 05/27/17 12:44 04/29/17 09:00 4 MG Metoclopramide HCl (Reglan Inj) 10 mg Q6H PRN IV 04/27/17 12:45 05/27/17 12:44 04/28/17 19:16 10 MG Lorazepam (Ativan Tab) 0.5 mg Q8H PRN PO 04/27/17 12:45 05/27/17 12:44 Lorazepam 0.5 mg/ Syringe 0.25 ml @ 1 mls/min Q8H PRN IV 04/27/17 12:45 05/27/17 12:44 Pneumococcal Polysaccharide Vaccine 1 ea PRN PRN N/A 04/27/17 12:45 05/27/17 12:44 Influenza Virus Vacc Triv Types A&B 1 ea PRN PRN N/A 04/27/17 12:45 05/27/17 12:44 Polyethylene (Miralax Powder Packet) 17 gm Q6 PO 04/29/17 06:00 05/29/17 05:59 04/29/17 05:37 17 GM Bisacodyl (Dulcolax Supp) 10 mg DAILY PRN IA 04/27/17 12:45 05/27/17 12:44 Magnesium Hydroxide (Milk Of Magnesia Susp) 30 ml DAILY PRN PO 04/27/17 12:45 05/27/17 12:44 Hydromorphone HCl (Dilaudid Inj) 0.5-1mg prn moder... Q3H PRN IV 04/28/17 06:00 05/12/17 05:59 04/29/17 09:01 0.5 MG Oxycodone HCl (Roxicodone Immediate Rel Tab) 5-10mg prn moderate to sev... Q4H PRN PO 04/28/17 06:00 05/12/17 05:59 04/28/17 12:48 10 MG Acetaminophen (Tylenol Tab) 1,000 mg Q8H PRN PO 04/27/17 12:45 05/27/17 12:44 04/28/17 20:54 1,000 MG Acetaminophen 100 ml @ 400 mls/hr Q8H PRN IV 04/27/17 12:45 05/27/17 12:44 Naloxone HCl (Narcan Inj) 0.1 mg Q5M PRN IV 04/27/17 12:45 05/27/17 12:44 Senna/Docusate Sodium (Senokot S Tab) 2 tab HS PO 04/27/17 21:00 05/27/17 20:59 04/28/17 20:49 2 TAB Sodium Biphosphate/ Sodium Phosphate (Fleet Enema) 132 ml ONE PRN IA 04/27/17 12:45 05/27/17 12:44 Hydroxyzine HCl (Vistaril Tab) 25 mg Q8H PRN PO 04/27/17 12:45 05/27/17 12:44 Al Hydroxide/Mg Hydroxide (Maalox Susp) 30 ml Q6H PRN PO 04/27/17 12:45 05/27/17 12:44 Diphenhydramine HCl (Benadryl Cap) 25 mg Q6H PRN PO 04/27/17 12:45 05/27/17 12:44 Aspirin (Ecotrin Tab) 81 mg QAM PO 04/28/17 09:00 05/28/17 08:59 04/29/17 08:57 81 MG Duloxetine HCl (Cymbalta Cap) 60 mg QAM PO 04/28/17 09:00 05/28/17 08:59 04/29/17 08:57 60 MG Furosemide (Lasix Tab) 20 mg DAILY@1700 PO 04/27/17 17:00 05/27/17 16:59 04/28/17 17:12 20 MG Furosemide (Lasix Tab) 40 mg QAM PO 04/28/17 09:00 05/28/17 08:59 Future Hold Hydralazine HCl (Apresoline Tab) 50 mg TID PO 04/27/17 14:00 05/27/17 13:59 04/29/17 08:57 50 MG Isosorbide Mononitrate (Imdur Ext Rel Tab) 120 mg QAM PO 04/28/17 09:00 05/28/17 08:59 04/29/17 08:58 120 MG Levalbuterol (Xopenex Hfa Inhaler) 2 puffs PRN PRN INH 04/27/17 12:45 05/27/17 12:44 Losartan Potassium (coZAAR TAB) 100 mg QAM PO 04/28/17 09:00 05/28/17 08:59 Future Hold Magnesium Oxide (Mag-Ox Tab) 400 mg QAM PO 04/28/17 09:00 05/28/17 08:59 04/29/17 08:58 400 MG Metoprolol Succinate (Toprol Xl Tab) 50 mg BID PO 04/27/17 21:00 05/27/17 20:59 04/29/17 09:00 50 MG Montelukast Sodium (Singulair Tab) 10 mg QPM PO 04/27/17 21:00 05/27/17 20:59 04/28/17 20:49 10 MG Nitroglycerin (Nitrostat Tab) 0.4 mg Q5M PRN UT 04/27/17 12:45 05/27/17 12:44 Lovastatin (Mevacor Tab) 10 mg QDD PO 04/27/17 17:45 05/27/17 17:44 04/28/17 18:03 10 MG Potassium Chloride (Klor-Con M10) 10 meq QAM PO 04/28/17 09:00 05/28/17 08:59 04/29/17 08:58 10 MEQ Ranitidine HCl (zANTac TAB) 300 mg HS PO 04/27/17 21:00 05/27/17 20:59 04/28/17 20:49 300 MG Insulin Glargine (Lantus Solostar Pen) 14 units HS SQ 04/27/17 21:00 05/27/17 20:59 04/28/17 20:57 14 UNITS Insulin Aspart (novoLOG ASPART) SLIDING SCALE If C... ACHS SC 04/27/17 17:15 05/27/17 17:14 04/27/17 21:25 2 UNITS Glucose (Glucose 40% Gel) 15-30 GRAMS 15 GRAMS... UD PRN PO 04/27/17 15:30 05/27/17 15:29 Glucose (Glucose Chew Tab) 4-8 Tablets 4 Tabl... UD PRN PO 04/27/17 15:30 05/27/17 15:29 Dextrose (Dextrose 50% 50ML Syringe) 25-50ML OF 50% DW IV FOR... UD PRN IV 04/27/17 15:30 05/27/17 15:29 Glucagon (Glucagon Inj) 1 mg UD PRN SQ 04/27/17 15:30 05/27/17 15:29 (Sakina Campos, PA-C) Objective Vital Signs Date Time Temp Pulse Resp B/P (MAP) Pulse Ox O2 Delivery O2 Flow Rate FiO2 04/29/17 07:55 37.2 80 18 161/74 (103) 92 Room Air 04/29/17 07:20 Room Air 04/28/17 23:25 Room Air 04/28/17 23:15 37.5 96 17 138/63 (88) 95 Room Air 04/28/17 20:30 37.5 98 137/71 (93) 04/28/17 17:00 36.9 04/28/17 16:16 37.9 82 16 129/66 (87) 92 Room Air 04/28/17 15:20 Room Air (Sakina Campos, PA-C) Physical Exam General Appearance: no apparent distress, + obese Eyes: normal inspection, PERRL ENT: hearing grossly normal Neck: supple Respiratory/Chest: lungs clear, no respiratory distress, no accessory muscle use Cardiovascular: regular rate, rhythm Abdomen: normal bowel sounds, non tender, soft Extremities: no pedal edema, no calf tenderness Neurologic/Psychiatric: no motor/sensory deficits, alert, normal mood/affect, oriented x 3 Skin: normal color, warm/dry, no rash (Sakina Campos ., PA-C) Laboratory Results Last 24 Hours Test 04/28/17 11:59 04/28/17 17:01 04/28/17 20:53 04/29/17 06:22 Bedside Glucose 114 mg/dl 134 mg/dl 126 mg/dl White Blood Count 8.53 K/uL Red Blood Count 3.79 M/uL Hemoglobin 10.8 g/dL Hematocrit 33.2 % Mean Corpuscular Volume 87.6 fL Mean Corpuscular Hemoglobin 28.5 pg Mean Corpuscular Hemoglobin Concent 32.5 g/dl RDW Standard Deviation 45.4 fL RDW Coefficient of Variation 14.2 % Platelet Count 144 K/uL Mean Platelet Volume 9.9 fL Sodium Level 135 mmol/L Potassium Level 4.4 mmol/L Chloride Level 102 mmol/L Carbon Dioxide Level 28 mmol/L Anion Gap 5.0 mmol/L Blood Urea Nitrogen 25 mg/dl Creatinine 1.70 mg/dl Est Creatinine Clear Calc Drug Dose 30.5 ml/min Estimated GFR () 35.8 Estimated GFR (Non- 30.9 BUN/Creatinine Ratio 15.0 Random Glucose 131 mg/dl Calcium Level 9.1 mg/dl Test 04/29/17 07:50 Bedside Glucose 138 mg/dl (Sakina Campos, RHIANNON-C) Assessment and Plan Ms. Villa is a 66 year old woman who is s/p decompression and fusion 04/27. Pmhx COPD (she states this was ruled out by Dr. Proctor recently and he feels it's more related to asthma), lung adenocarcinoma with lobectomy a year ago, GERD, DMII, CAD, PA 1999 with CABG x 4 and 2003, Colbert Parkinson White with ablation 1999, hypercholesteremia s/p decompression and fusion on 04/[address] 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: - Follow PRP- porcelain mixer 1.7 today - Avoid nephrotoxic agents and renally dose medications as appropriate Expected acute blood loss anemia secondary to surgical procedure: - Follow H&H- hgb 10.8 today- STABLE COPD, asthma, DEANA: - O2 protocol, wean as tolerated- on RA - Continue home inhalers - Non- compliant with CPAP machine- states she cannot tolerate- encouraged use of machine CAD s/p PA and CABG, WPW, hypercholesterolemia, PVD, HTN: - Continue ASA, Imdur, Metoprolol, Hydralazine, Lovastatin, KCL supplement, Mag supplement - Hold Losartan and Lasix due to bump in kidney function- resume at discharge GERD, GI prophylaxis: Continue Zantac DVT prophylaxis: ASA as per primary team Code Status: LEVEL I, FULL Dispo: As per primary team - Patient is medically stable for discharge, will sign off. Please call with any new questions/concerns. (Sakina Campos, KIM) I personally interviewed and examined the patient. I agree with history of present illness and physical exam mentioned above, I also performed my own history taking and examination. Past medical history and review of system has been obtained by myself I reviewed all pertinent labs and studies Reviewed current medications I discussed and formulated of the assessment and plan mentioned above with RHIANNON Campos Please refer to the Summary mentioned below. Assessment: severe osteoarthritis and lower back pain that failed outpatient conservative measures. Patient presented to the hospital for an elective orthopedic procedure s/p decompression and fusion on 04/[address] Brito Patient also has chronic kidney disease stage 3-4, currently at baseline Diabetes mellitus type 2 Coronary artery disease status post PA/CABG White Parkinson syndrome status post ablation Dyslipidemia COPD Plan Status post orthopedic procedure, went uneventful , medically appears stable, can be discharged from the medical aspect. Patient tolerated procedure well with minimal blood loss Appears to be stable Continue outpatient medications except metformin/glipizide which we will do insulin sliding scale and stent Follow-up labs Ensure adequate oral/parenteral intake Pain management Physical therapy initiation as per primary orthopedic team DVT prophylaxis as per the choice of primary orthopedic team will sign off General Appearance: not in acute distress Eyes: normal Sclerae, extraocular muscle intact ENT: hearing grossly normal Neck: supple Respiratory/Chest: normal air entry bilateral ,no respiratory distress, no accessory muscle use Cardiovascular: regular rate, rhythm, no murmur Abdomen: non tender, soft, no masses Extremities: no edema Neurologic/Psychiatric: Awake alert oriented times place and person moves all extremities sensation intact cranial nerves II-12 appear to be intact Skin: normal color, warm/dry, no rash Hortencia Augustine MD, [facility] hospitalist group (Hortencia Matthew MD)
--- NOTE | 2017-04-29 13:34 | Discharge Summary ---
Orthopedic Discharge Summary Admission Date/Reason Apr 27, 2017 at 10:30 Lumbar Spinal Stenosis L4-5. Discharge Date/Disposition Apr 29, 2017 Home Diagnosis Principal Diagnosis: Lumbar decompression fusion Admission Physical Exam As per Admitting History & Physical. Hospital Course Patient underwent lumbar decompression fusion tolerated as well as taken to the orthopedic floor postoperative. Postop day #1 she was up and amatory progressed nicely through postoperative day #2 conceptually discharged home. Discharge orders and instructions found in the chart for further review. Discharge Instructions Please refer to the electronic Patient Visit Report (Discharge Instructions) for additional information.
[2017-04-29 14:27] VITALS: BP 161/65; PULSE 90; TEMP 37.2; O2SAT 94
== END 2017-04-29 15:20 | disposition home or self-care (01) | DRG 454 ==
LOC: C.ACU 09:01 → C.3E 10:30 → ENRESERV 13:52
PROVIDERS: ADMIT Orthopaedic Surgery Orthopaedic Surgery of the Spine; ATTEND Orthopaedic Surgery Orthopaedic Surgery of the Spine
PROC: 01NB0ZZ Release Lumbar Nerve, Open Approach (ICD-10-PCS; principal; 2017-04-27 11:15)
PROC: 0ST20ZZ Resection of Lumbar Vertebral Disc, Open Approach (ICD-10-PCS; principal; 2017-04-27 11:15)
PROC: 0SG0071 Fusion of Lumbar Vertebral Joint with Autologous Tissue Substitute, Posterior Approach, Posterior Column, Open Approach (ICD-10-PCS; principal; 2017-04-27 11:15)
PROC: 0SG00AJ Fusion of Lumbar Vertebral Joint with Interbody Fusion Device, Posterior Approach, Anterior Column, Open Approach (ICD-10-PCS; principal; 2017-04-27 11:15)
DX: M48.061 Spinal stenosis, lumbar region without neurogenic claudication (principal); D62 Acute posthemorrhagic anemia; N18.3 Chronic kidney disease, stage 3 (moderate); J44.9 Chronic obstructive pulmonary disease, unspecified; E11.9 Type 2 diabetes mellitus without complications; K21.9 Gastro-esophageal reflux disease without esophagitis; G47.33 Obstructive sleep apnea (adult) (pediatric); I73.9 Peripheral vascular disease, unspecified; Z79.82 Long term (current) use of aspirin; I25.2 Old myocardial infarction

== ENCOUNTER → 2017-05-17 | Outpatient (CLI) | payer OTHER ==
[~2017-05-17] MED LIST changes: -CEFAZOLIN 2000MG IV PUSH 10 ML IV SCH; +RXC5 PO; -SODIUM CHLORIDE 0.9% 1000ML 1,000 ML IV SCH
[2017-05-17 13:23] LABS: CREATININE 1.67 mg/dl (0.60-1.20); URIC ACID 6.8 mg/dl (2.6-7.2)
== END | disposition home or self-care (01) ==
LOC: C.LABMFLN 10:31
PROVIDERS: ATTEND Family Medicine
DX: M10.9 Gout, unspecified (principal)

== ENCOUNTER → 2017-06-01 | Outpatient (CLI) | payer OTHER ==
[2017-06-01 12:21] LABS: BASO % 0.6 %; BASO ABS # 0.03 K/uL (0-0.2); EOS % 4.5 %; EOS ABS # 0.22 K/uL (0-0.5); HEMATOCRIT 37.4 % (37-47); HEMOGLOBIN 12.3 g/dL (12.0-16.0); IG# 0.01 K/uL (0.00-0.02); LYMPH % 44.1 %; LYMPH ABS # 2.15 K/uL (1.2-3.4); MEAN CELL VOLUME 86.8 fL (80-100); MEAN CORPUSCULAR HEMOGLOBIN 28.5 pg (25-34); MEAN CORPUSCULAR HGB CONC 32.9 g/dl (32-36); MEAN PLATELET VOLUME 10.3 fL (7.4-10.4); MONO % 10.7 %; MONO ABS # 0.52 K/uL (0.11-0.59); NEUT % 39.9 %; NEUT ABS # 1.95 K/uL (1.4-6.5); PLATELET COUNT 192 K/uL (130-400); RED CELL DISTRIBUTION WIDTH CV 14.2 % (11.5-14.5); RED CELL DISTRIBUTION WIDTH SD 44.9 fL (36.4-46.3); WHITE BLOOD COUNT 4.88 K/uL (4.8-10.8)
[2017-06-01 13:03] LABS: HEMOGLOBIN A1C 5.3 % (4.5-5.6)
[2017-06-01 14:12] LABS: ALBUMIN 3.6 gm/dl (3.4-5.0); ALT/SGPT 18 U/L (12-78); AST/SGOT 14 U/L (15-37); BLOOD UREA NITROGEN 31 mg/dl (7-18); CALCIUM 9.5 mg/dl (8.5-10.1); CARBON DIOXIDE 29 mmol/L (21-32); CHOLESTEROL 219 mg/dl (0-200); GLUCOSE 101 mg/dl (70-99); POTASSIUM 4.1 mmol/L (3.5-5.1); SODIUM 139 mmol/L (136-145)
[2017-06-01 14:18] LABS: ALKALINE PHOSPHATASE 34 U/L (45-117); LDL CHOLESTEROL CALCULATED 129 mg/dl; TOTAL PROTEIN 7.6 gm/dl (6.4-8.2)
== END | disposition home or self-care (01) ==
LOC: C.LABMFLN 07:27
PROVIDERS: ATTEND Family Medicine
DX: E11.9 Type 2 diabetes mellitus without complications (principal); E55.9 Vitamin D deficiency, unspecified; I25.10 Atherosclerotic heart disease of native coronary artery without angina pectoris; E78.00 Pure hypercholesterolemia, unspecified; M10.9 Gout, unspecified

== ENCOUNTER → 2017-07-13 | Outpatient (CLI) | payer OTHER ==
--- NOTE | 2017-07-14 07:58 | MAMMOGRAPHY REPORT ---
BILATERAL DIGITAL SCREENING MAMMOGRAM TOMOSYNTHESIS WITH CAD: 07/13/2017 CLINICAL HISTORY: Routine screening. Patient has no complaints. TECHNIQUE: Breast tomosynthesis in addition to standard 2D mammography was performed. Current study was also evaluated with a Computer Aided Detection (CAD) system. COMPARISON: Comparison is made to exams dated: 03/15/2012 mammogram, 06/08/2013 mammogram, 06/14/2014 m ammogram, and 05/04/2016 [place] [facility] [place] BREAST COMPOSITION: There are scattered areas of fibroglandular density in both breasts. FINDINGS: No suspicious masses, calcifications, or areas of architectural distortion are noted in ei ther breast. There has been no significant interval change compared to prior exams. Scattered bilater al benign-appearing calcifications are not significantly changed. IMPRESSION: ACR BI-RADS CATEGORY 2: BENIGN There is no mammographic evidence of malignancy. A 1 year screening mammogram is recommended. The pa tient will receive written notification of the results. Approximately 10% of breast cancers are not detected with mammography. A negative mammographic report should not delay biopsy if a clinically suggestive mass is present. Khloe Amos M.D. ah/:07/13/2017 15:18:30 Supervisor Coffee: Tahira AHUJA(Shen)(M), [facility] letter sent: Normal 1/2 BI-RADS Code: ACR BI-RADS Category 2: Benign
== END | disposition home or self-care (01) ==
LOC: C.MAMM 14:36
PROVIDERS: ATTEND Family Medicine
DX: Z12.31 Encounter for screening mammogram for malignant neoplasm of breast (principal)

== ENCOUNTER → 2017-11-02 | Outpatient (CLI) | payer OTHER ==
--- NOTE | 2017-11-02 12:18 | DIAGNOSTIC IMAGING REPORT ---
PELVIC COMPLETE NON OB CLINICAL HISTORY: PELVIC PAIN PAIN COMPARISON STUDY: FINDINGS: The uterus measured 5.8 cm. The endometrial stripe measured 6 mm. The right ovary measured 1.8 cm maximum dimension. Normal vascular flow. The left ovary measured 2.0 cm maximum dimension normal vascular flow. There is no ultrasonographic evidence of ovarian torsion. It should be noted that ovarian torsion can be present with normal Doppler ultrasonographic findings. There was no evidence of pathologic free pelvic fluid. Note is made of a potential nodular lesion left lateral bladder wall measuring 1.9 cm. Cystoscopy is suggested. IMPRESSION: 1. 1.9 cm nodular lesion left lateral bladder wall with cystoscopy recommended. 2. Remainder of the study is unremarkable. 3. Slight endometrial prominence at 6 mm. 4. Prior left nephrectomy. The above report was generated using voice recognition software. It may contain grammatical, syntax or spelling errors. Electronically signed by: Maximo Grande M.D. 11/02/2017 12:17 PM Dictated Date/Time: 11/02/2017 12:15 PM
== END | disposition home or self-care (01) ==
LOC: C.ULTR 11:11
PROVIDERS: ATTEND Family Medicine
DX: N32.9 Bladder disorder, unspecified (principal); Z90.5 Acquired absence of kidney; R10.2 Pelvic and perineal pain

== ENCOUNTER → 2017-11-02 | Outpatient (CLI) | payer OTHER ==
[2017-11-02 13:38] LABS: HEMOGLOBIN A1C 5.7 % (4.5-5.6)
[2017-11-02 13:49] LABS: URIC ACID 7.1 mg/dl (2.6-7.2)
== END | disposition home or self-care (01) ==
LOC: C.LABMFLN 07:10
PROVIDERS: ATTEND Family Medicine
DX: E83.42 Hypomagnesemia (principal); E11.9 Type 2 diabetes mellitus without complications; Z12.31 Encounter for screening mammogram for malignant neoplasm of breast; I10 Essential (primary) hypertension; E55.9 Vitamin D deficiency, unspecified

== ENCOUNTER → 2017-11-09 | Outpatient (CLI) | payer OTHER | END | disposition home or self-care (01) | LOC: C.LABMFLN 11:30 | PROVIDERS: ATTEND Urology | DX: N32.89 Other specified disorders of bladder (principal) ==

== ENCOUNTER → 2017-11-16 | Outpatient (CLI) | payer OTHER ==
[~2017-11-16] MED LIST changes: +ACET300T3 PO; +CFT250 PO; +FORM1NEB INH; +MOME6000 NAE; +ONDA4TAB10 SL
--- NOTE | 2017-11-16 14:51 | DIAGNOSTIC IMAGING REPORT ---
CHEST 2 VIEWS ROUTINE HISTORY: R05 Cough productive of purulent sputum COMPARISON: Chest 01/25/2017. FINDINGS: No pneumothorax. No pleural effusions. Post anatomy changes. The heart remains mildly enlarged. No new focal lung consolidations to suggest pneumonia. No evidence for pulmonary edema. Mild perihilar interstitial thickening remains unchanged and is likely chronic. Postoperative changes consistent with prior left upper lobectomy. This remains unchanged. IMPRESSION: No significant change compared to the prior study. No acute process. Electronically signed by: Chacho Mercedes M.D. 11/16/2017 2:49 PM Dictated Date/Time: 11/16/2017 2:48 PM
--- NOTE | 2017-11-16 15:06 | DIAGNOSTIC IMAGING REPORT ---
ABDOMEN AND PELVIS CT WITHOUT CONTRAST CT DOSE: 900.57 mGycm HISTORY: N32.89 Bladder mass TECHNIQUE: Multiaxial CT images of the abdomen and pelvis were performed without contrast. A dose lowering technique was utilized adhering to the principles of ALARA. COMPARISON STUDY: Pelvic ultrasound 11/02/2017. FINDINGS: Linear scarlike density within the left lung base. Poststernotomy changes. The right lung base is clear. No pneumoperitoneum. No pneumatosis. No suspicious lytic or blastic osseous lesions. Posterior decompression fusion at L4-L5. The unenhanced liver, spleen, adrenal glands, and pancreas are unremarkable. Extensive calcified plaque within the normal caliber abdominal aorta. Surgical clips seen within the left groin. The bladder is completely decompressed. Therefore, this is nondiagnostic to evaluate for a bladder mass. The uterus and adnexa are unremarkable. Therefore, these do not meet CT criteria for pathologic involvement. Increase in size in the lymph nodes posterior to the distal esophagus. The largest lymph node measures 1.5 x 1.1 cm. Slight increase in size in a few right anterior pericardial lymph nodes. Dominant lymph node measures 1.5 x 0.7 cm. Borderline enlarged gastrohepatic lymph nodes also slightly increased in size. Cholelithiasis. Suboptimal evaluation for bowel pathology due to the lack of intravenous and oral contrast. However, there is no definite bowel wall thickening or obstruction. Colonic diverticulosis. Normal appendix.. The right kidney is surgically absent. IMPRESSION: 1. The bladder is completely decompressed. Therefore, evaluation for a bladder mass is nondiagnostic. As described on the prior study a cystoscopy is recommended. 2. Mildly enlarged distal periesophageal and prominent right anterior pericardial and gastrohepatic lymph nodes. These increase in size from the prior chest CT. Although indeterminate a 3 month follow-up is recommended to assess for stability/resolution and to exclude developing pathologic adenopathy. 3. Cholelithiasis. 4. The right kidney is surgically absent.. Electronically signed by: Chacho Mercedes M.D. 11/16/2017 3:04 PM Dictated Date/Time: 11/16/2017 2:49 PM
== END | disposition home or self-care (01) ==
LOC: C.CTS 13:59
PROVIDERS: ATTEND Urology
DX: N32.89 Other specified disorders of bladder (principal); R05 Cough; K80.20 Calculus of gallbladder without cholecystitis without obstruction; R59.0 Localized enlarged lymph nodes

== ENCOUNTER 2017-11-20 10:06 | Emergency (ER) | payer OTHER ==
[~2017-11-20] VITALS: Ht 152.4 cm; Wt 79.6 kg
[~2017-11-20 10:06] MED LIST changes: -ACET300T3 PO; -CFT250 PO; -FORM1NEB INH; -MOME6000 NAE; -ONDA4TAB10 SL
[2017-11-20 10:08] VITALS: TEMP 36.7; Ht 152.4 cm; Wt 79.6 kg
[2017-11-20] MEDS ORDERED: CFT250 PO (10:32)
[2017-11-20] MEDS ORDERED: FORM1NEB INH (10:32)
[2017-11-20] MEDS ORDERED: MOME6000 NAE (10:32)
[2017-11-20] MEDS ORDERED: SODIUM CHLORIDE 0.9% 1000ML 1,000 ML IV STA (10:36)
--- NOTE | 2017-11-20 10:40 | EMERGENCY ROOM VISIT NOTE ---
History Report prepared by Sonali: Keith Villavicencio Under the Supervision of: Dr. Yemi De Jesus M.D. First contact with patient: 10:21 Chief Complaint: ILLNESS Stated Complaint: SICK History of Present Illness The patient is a 67 year old female who presents to the Emergency Room with complaints of cold symptoms for the past 2 weeks. The patient states that her symptoms started 2 weeks ago with "sinus congestion and cold symptoms." She notes that she then noticed a significant increase in the frequency "belching." The patient does note a cough as well, but notes that it has been nonproductive and non-bloody. She adds that she did feel febrile recently, but has not recorded any febrile temperatures. She is having abdominal pain. The patient did notice some vaginal spotting last week and followed with Dr. Lockwood. He found a mass in her bladder. She denies any further hematochezia, melena, or history of smoking. The patient notes that she has a history of kidney removal for a benign tumor. Source of History: patient Onset: 2 weeks Position: abdomen Quality: other (sinus congestion) Timing: other (2 weeks ago) Associated Symptoms: + cough, No fevers Review of Systems See HPI for pertinent positives and negatives. A total of ten systems were reviewed and were otherwise negative. Past Medical & Surgical Medical Problems: (1) Asthmatic bronchitis (2) COPD (chronic obstructive pulmonary disease) (3) Diabetes mellitus type 2 (4) Exacerbation of asthma (5) fibromyalgia (6) Gastroesophageal reflux disease (7) H/O unilateral nephrectomy (8) Lumbar stenosis with neurogenic claudication (9) Mass of left lung (10) Myocardial infarction (11) Obstructive sleep apnea syndrome (12) Peripheral arterial occlusive disease (13) Peripheral vascular disease (14) Peripheral vascular disease with claudication Surgical Problems: (1) S/P triple vessel bypass Family History FH: HTN (hypertension) FH: lung disease Heart disease Social History Smoking Status: Never Smoker Alcohol Use: none Marital Status: Housing Status: lives with significant other Occupation Status: disabled Current/Historical Medications Scheduled Aspirin (Aspirin Ec), 81 MG PO QAM Calcium Carbonate-Vitamin D (Calcium + D), 1 TAB PO QAM Cefuroxime Axetil (Cefuroxime Axetil), 250 MG PO BID Coenzyme Q10 (Ubidecarenone) (Coq10), 100 MG PO QPM Cyanocobalamin (Vitamin B12 500MCG), 1,000 MCG PO QAM Docusate Sodium (Docusate Sodium), 1 CAP PO PRN Duloxetine Hcl (Cymbalta), 60 MG PO QAM Fish Oil ([place]-3), 1,000 MG PO QAM Furosemide (Lasix), 40 MG PO QAM Glipizide (Glipizide Er), 5 MG PO QAM Hydralazine Hcl (Apresoline), 50 MG PO TID Insulin Glargine (Lantus), 18 UNITS INJ HS Isosorbide Mononitrate Ext Rel (Imdur Ext Rel), 120 MG PO QAM Losartan Potassium (Cozaar), 100 MG PO QAM Lovastatin (Mevacor), 10 MG PO QPM Magnesium Oxide (Mag-Ox), 400 MG PO QAM Metformin Hcl (Glucophage), 500 MG PO BID Metoprolol Succ (Toprol Xl) (Toprol-Xl), 50 MG PO BID Mometasone Furoate (Nasal) (Mometasone Furoate), 2 SPRAYS CAIN DAILY Montelukast Sodium (Montelukast Sodium), 1 TAB PO QPM Nitroglycerin (Nitrostat), 0.4 MG UT PRN Ondasetron Odt (Zofran Odt), 4 MG SL TID Rabeprazole Sodium (Aciphex), 20 MG PO QAM Ranitidine (Zantac), 300 MG PO HS Sitagliptin (Januvia), 50 MG PO QAM Scheduled PRN Acetaminophen/Codeine (Tylenol W/Codeine #3), 1 TABS PO TID PRN for Pain Fluticasone Furoate-Vilanterol (Breo Ellipta), 1 DOSE INH QAM PRN for RN Formoterol Fumarate (Perforomist), 1 VIAL INH UD PRN for SOB/Wheezing Allergies Coded Allergies: Albuterol (Verified Allergy, Unknown, tachycardia worse d/t moreno/parkinson /white syndrome, 11/20/17) POLLEN (Verified Allergy, Unknown, sneezing and "runny eyes", 11/20/17) Adhesives (Verified Adverse Reaction, Unknown, redness on skin, 11/20/17) Oxycodone (Verified Adverse Reaction, Unknown, GI SYMPTOMS, 11/20/17) Physical Exam Vital Signs Date Time Temp Pulse Resp B/P (MAP) Pulse Ox O2 Delivery O2 Flow Rate FiO2 11/20/17 14:20 81 17 158/88 97 11/20/17 13:01 69 191/80 98 11/20/17 12:12 71 17 214/82 98 Room Air 11/20/17 10:53 64 17 158/68 95 Room Air 11/20/17 10:35 64 11/20/17 10:08 36.7 68 18 168/76 97 Room Air Physical Exam Physical Exam GENERAL: She is oriented to person, place, and time. She appears well- developed and well-nourished. She does not appear distressed. HENT: Exam performed. Head: Normocephalic and atraumatic. No pain on patient of the sinuses. Right Ear: External ear normal. No mastoid tenderness. Left Ear: External ear normal. No mastoid tenderness. Mouth/Throat: The oropharynx is clear and moist. No trismus in the jaw. No dental abscesses or uvula swelling. No oropharyngeal exudate or tonsillar abscesses. EYES: Conjunctivae and EOM are normal. Pupils are equal, round, and reactive to light. Right eye exhibits no discharge. Left eye exhibits no discharge. No scleral icterus. NECK: Normal range of motion. Neck supple. No JVD present. No spinous process tenderness present. No carotid bruit present. No rigidity. No tracheal deviation and normal range of motion present. No Brudzinski's sign and no Kernig 's sign noted. CV: Normal rate, regular rhythm, normal heart sounds and intact distal pulses. There is no peripheral edema. Palpable radial pulses bue. PULM/CHEST: Effort normal and breath sounds normal. No respiratory distress. No stridor. She has no wheezes. She has no rales. Chest Wall: She exhibits no tenderness. ABD: The abdomen is soft. Bowel sounds are normal. She has no distension. No mass is present. There is pain on palpation of the right RUQ and epigastric area. There is no rebound, no guarding, no Duong's sign and no tenderness at McBurney's point. Rovsig negative MUSC/SKEL: Normal range of motion. There is no peripheral edema, tenderness or deformity. LYMPH: No cervical adenopathy. NEURO: She is alert and oriented to person, place, and time. She has normal strength. No cranial nerve deficit or sensory deficit. Coordination and gait normal. GCS eye subscore is 4. GCS verbal subscore is 5. GCS motor subscore is 6. Cerebellar tests wnl. SKIN: Skin is warm and dry. She is not diaphoretic. PSYCH: She has a normal mood and affect. Behavior is normal. Judgment and thought content normal. Medical Decision & Procedures ER Provider Diagnostic Interpretation: Radiology results as stated below per my review and radiologist interpretation: PA CHEST RADIOGRAPH AND UPRIGHT AND SUPINE AP RADIOGRAPHS OF THE ABDOMEN CLINICAL HISTORY: Epigastric pain. COMPARISON STUDY: CT of the abdomen and pelvis and chest radiograph November 16, 2017. FINDINGS: Note is made of median sternotomy wires and stable postoperative findings consistent with a left upper lobectomy. There is no evidence for pulmonary edema. The cardiomediastinal silhouette is stable. There is no consolidation to suggest pneumonia. There is no free air. Multiple abdominal and pelvic surgical clips are noted as well as postoperative findings within the lower lumbar spine. Bowel gas pattern is normal. IMPRESSION: 1. No free air or evidence of bowel obstruction. 2. Stable postoperative appearance within the chest status post left upper lobectomy. Electronically signed by: Kevin Ramirez M.D. 11/20/2017 11:52 AM Dictated Date/Time: 11/20/2017 11:49 AM ABDOMINAL ULTRASOUND, RIGHT UPPER QUADRANT HISTORY: Right upper quadrant abdominal pain. COMPARISON: Right upper quadrant ultrasound January 30, [address] of the abdomen and pelvis November 16, 2017. FINDINGS: Liver is sonographically normal. There are multiple gallstones within the gallbladder. No sonographic Duong sign was elicited. There is no gallbladder wall thickening or pericholecystic fluid. There is no biliary ductal dilatation. The pancreatic body is normal. The head and tail are slightly obscured. The right kidney is surgically absent. IMPRESSION: 1. Cholelithiasis. No sonographic evidence for acute cholecystitis. 2. No biliary ductal dilatation. Electronically signed by: Kevin Ramirez M.D. 11/20/2017 12:22 PM Dictated Date/Time: 11/20/2017 12:21 PM Laboratory Results 11/20/17 10:20 Red Blood Count 4.45, Mean Corpuscular Volume 80.2, Mean Corpuscular Hemoglobin 27.0, Mean Corpuscular Hemoglobin Concent 33.6, Mean Platelet Volume 9.5, Neutrophils (%) (Auto) 48.2, Lymphocytes (%) (Auto) 31.5, Monocytes (%) (Auto) 17.9, Eosinophils (%) (Auto) 1.6, Basophils (%) (Auto) 0.5, Neutrophils # (Auto ) 1.77, Lymphocytes # (Auto) 1.16, Monocytes # (Auto) 0.66, Eosinophils # (Auto ) 0.06, Basophils # (Auto) 0.02 11/20/17 10:20 Test 11/20/17 10:20 11/20/17 12:37 White Blood Count 3.68 K/uL (4.8-10.8) Red Blood Count 4.45 M/uL (4.2-5.4) Hemoglobin 12.0 g/dL (12.0-16.0) Hematocrit 35.7 % (37-47) Mean Corpuscular Volume 80.2 fL (80-100) Mean Corpuscular Hemoglobin 27.0 pg (25-34) Mean Corpuscular Hemoglobin Concent 33.6 g/dl (32-36) Platelet Count 240 K/uL (130-400) Mean Platelet Volume 9.5 fL (7.4-10.4) Neutrophils (%) (Auto) 48.2 % Lymphocytes (%) (Auto) 31.5 % Monocytes (%) (Auto) 17.9 % Eosinophils (%) (Auto) 1.6 % Basophils (%) (Auto) 0.5 % Neutrophils # (Auto) 1.77 K/uL (1.4-6.5) Lymphocytes # (Auto) 1.16 K/uL (1.2-3.4) Monocytes # (Auto) 0.66 K/uL (0.11-0.59) Eosinophils # (Auto) 0.06 K/uL (0-0.5) Basophils # (Auto) 0.02 K/uL (0-0.2) RDW Standard Deviation 40.5 fL (36.4-46.3) RDW Coefficient of Variation 14.0 % (11.5-14.5) Immature Granulocyte % (Auto) 0.3 % Immature Granulocyte # (Auto) 0.01 K/uL (0.00-0.02) Prothrombin Time 10.6 SECONDS (9.0-12.0) Prothromb Time International Ratio 1.0 (0.9-1.1) Activated Partial Thromboplast Time 28.6 SECONDS (21.0-31.0) Partial Thromboplastin Ratio 1.1 Anion Gap 11.0 mmol/L (3-11) Est Creatinine Clear Calc Drug Dose 37.2 ml/min Estimated GFR () 46.1 Estimated GFR (Non- 39.8 BUN/Creatinine Ratio 12.5 (10-20) Calcium Level 9.9 mg/dl (8.5-10.1) Magnesium Level 2.0 mg/dl (1.8-2.4) Total Bilirubin 0.4 mg/dl (0.2-1) Direct Bilirubin 0.1 mg/dl (0-0.2) Aspartate Amino Transf (AST/SGOT) 23 U/L (15-37) Alanine Aminotransferase (ALT/SGPT) 31 U/L (12-78) Alkaline Phosphatase 46 U/L (45-117) Troponin I < 0.015 ng/ml (0-0.045) Total Protein 8.0 gm/dl (6.4-8.2) Albumin 3.4 gm/dl (3.4-5.0) Lipase 573 U/L (73-393) Lactic Acid Level 1.6 mmol/L (0.4-2.0) Laboratory results reviewed by me Medications Administered Medications (Trade) Dose Ordered Sig/[place] Route Start Time Stop Time Status Last Admin Dose Admin Sodium Chloride 1,000 ml @ 125 mls/hr Q8H STAT IV 11/20/17 10:36 11/20/17 14:35 DC 11/20/17 10:51 125 MLS/HR ECG Per My Interpretation Indication: abdominal pain Rate (beats per minute): 74 Rhythm: sinus rhythm Findings: PVC, other (intervlas normal, no NELDA/STD) ED Course 1028: The patient was evaluated in room A4. A complete history and physical exam was performed. 1036: Ordered Sodium Chloride 1000 mL @ 125 mL/hr IV. 1402: Vital signs stable. Labs within normal limits with the exception of a white blood cell count of 3.68, lipase of 573. Creatinine at baseline. Sodium was 129. Patient is alert and oriented 3. Imaging showed no pneumonia. Ultrasound of the abdomen showed cholelithiasis without cholecystitis. Patient states she is feeling better, just has constant belching. Repeat abdominal exam shows no pain on palpation of the abdomen. Patient tolerating p.o. without difficulty. Patient be discharged with follow-up PCP as well as general surgery for possible outpatient elective cholecystectomy. DISCHARGE - Plan of care discussed with patient and questions answered. The patient was given both verbal and printed discharge instructions. The patient verbalized understanding and ability to comply. The patient is to seek outpatient follow up as noted in the discharge instructions. The patient verbalized understanding and ability to comply. The patient is discharged in stable condition. The patient was instructed to return for worsening symptoms. Medical Decision Vital signs stable. Labs within normal limits with the exception of a white blood cell count of 3.68, lipase of 573. Creatinine at baseline. Sodium was 129. Patient is alert and oriented 3. Imaging showed no pneumonia. Ultrasound of the abdomen showed cholelithiasis without cholecystitis. Patient states she is feeling better, just has constant belching. Repeat abdominal exam shows no pain on palpation of the abdomen. Patient tolerating p.o. without difficulty. Patient be discharged with follow-up PCP as well as general surgery for possible outpatient elective cholecystectomy. DISCHARGE - Plan of care discussed with patient and questions answered. The patient was given both verbal and printed discharge instructions. The patient verbalized understanding and ability to comply. The patient is to seek outpatient follow up as noted in the discharge instructions. The patient verbalized understanding and ability to comply. The patient is discharged in stable condition. The patient was instructed to return for worsening symptoms. Medication Reconcilliation Current Medication List: was personally reviewed by me Blood Pressure Screening Patient's blood pressure: Elevated blood pressure Blood pressure disposition: Referred to PCP Impression Primary Impression: Gallstones Scribe Attestation The scribe's documentation has been prepared under my direction and personally reviewed by me in its entirety. I confirm that the note above accurately reflects all work, treatment, procedures, and medical decision making performed by me. The chart was completed utilizing [email or web address] Speech voice recognition software. Grammatical errors, random word insertions, pronoun errors, and incomplete sentences are an occasional consequence of this system due to software limitations, ambient noise, and hardware issues. Any formal questions or concerns about the content, text, or information contained within the body of this dictation should be directly addressed to the physician for clarification. Departure Information Dispostion Home / Self-Care Prescriptions Ondasetron Odt (ZOFRAN ODT) 4 Mg Tab 4 MG SL TID for Nausea, #30 TAB Prov: Yemi De Jesus M.D. 11/20/17 Acetaminophen/Codeine (Tylenol W/Codeine #3) 300 Mg/30 Mg Tab 1 TABS PO TID Y for Pain, #21 TAB Prov: Yemi De Jesus M.D. 11/20/17 Referrals Jordy Starks M.D. (PCP) Forms HOME CARE DOCUMENTATION FORM, IMPORTANT VISIT INFORMATION, WORK / SCHOOL INSTRUCTIONS Patient Instructions My [facility] Additional Instructions Return to the emergency department if you develop fever greater 100.4, blood in your stools, blood in urine, dark black tarry stools, worsening abdominal pain or vomiting.
[2017-11-20 10:55] LABS: BASO % 0.5 %; BASO ABS # 0.02 K/uL (0-0.2); EOS % 1.6 %; EOS ABS # 0.06 K/uL (0-0.5); HEMATOCRIT 35.7 % (37-47); IG# 0.01 K/uL (0.00-0.02); LYMPH % 31.5 %; LYMPH ABS # 1.16 K/uL (1.2-3.4); MEAN CELL VOLUME 80.2 fL (80-100); MEAN CORPUSCULAR HGB CONC 33.6 g/dl (32-36); MEAN PLATELET VOLUME 9.5 fL (7.4-10.4); MONO % 17.9 %; MONO ABS # 0.66 K/uL (0.11-0.59); NEUT % 48.2 %; NEUT ABS # 1.77 K/uL (1.4-6.5); PLATELET COUNT 240 K/uL (130-400); RED CELL DISTRIBUTION WIDTH SD 40.5 fL (36.4-46.3); WHITE BLOOD COUNT 3.68 K/uL (4.8-10.8)
[2017-11-20 11:06] LABS: PTT PATIENT 28.6 SECONDS (21.0-31.0)
[2017-11-20 11:10] LABS: ALBUMIN 3.4 gm/dl (3.4-5.0); ALKALINE PHOSPHATASE 46 U/L (45-117); ALT/SGPT 31 U/L (12-78); AST/SGOT 23 U/L (15-37); BLOOD UREA NITROGEN 17 mg/dl (7-18); CALCIUM 9.9 mg/dl (8.5-10.1); CARBON DIOXIDE 23 mmol/L (21-32); CREATININE 1.37 mg/dl (0.60-1.20); GLUCOSE 114 mg/dl (70-99); LIPASE 573 U/L (73-393); POTASSIUM 4.1 mmol/L (3.5-5.1); SODIUM 129 mmol/L (136-145)
--- NOTE | 2017-11-20 11:53 | DIAGNOSTIC IMAGING REPORT ---
PA CHEST RADIOGRAPH AND UPRIGHT AND SUPINE AP RADIOGRAPHS OF THE ABDOMEN CLINICAL HISTORY: Epigastric pain. COMPARISON STUDY: CT of the abdomen and pelvis and chest radiograph November 16, 2017. FINDINGS: Note is made of median sternotomy wires and stable postoperative findings consistent with a left upper lobectomy. There is no evidence for pulmonary edema. The cardiomediastinal silhouette is stable. There is no consolidation to suggest pneumonia. There is no free air. Multiple abdominal and pelvic surgical clips are noted as well as postoperative findings within the lower lumbar spine. Bowel gas pattern is normal. IMPRESSION: 1. No free air or evidence of bowel obstruction. 2. Stable postoperative appearance within the chest status post left upper lobectomy. Electronically signed by: Kevin Ramirez M.D. 11/20/2017 11:52 AM Dictated Date/Time: 11/20/2017 11:49 AM
--- NOTE | 2017-11-20 12:23 | DIAGNOSTIC IMAGING REPORT ---
ABDOMINAL ULTRASOUND, RIGHT UPPER QUADRANT HISTORY: Right upper quadrant abdominal pain. COMPARISON: Right upper quadrant ultrasound January 30, [address] of the abdomen and pelvis November 16, 2017. FINDINGS: Liver is sonographically normal. There are multiple gallstones within the gallbladder. No sonographic Duong sign was elicited. There is no gallbladder wall thickening or pericholecystic fluid. There is no biliary ductal dilatation. The pancreatic body is normal. The head and tail are slightly obscured. The right kidney is surgically absent. IMPRESSION: 1. Cholelithiasis. No sonographic evidence for acute cholecystitis. 2. No biliary ductal dilatation. Electronically signed by: Kevin Ramirez M.D. 11/20/2017 12:22 PM Dictated Date/Time: 11/20/2017 12:21 PM
[2017-11-20] MEDS ORDERED: ACET300T3 PO (14:13)
[2017-11-20] MEDS ORDERED: ONDA4TAB10 SL (14:14)
[2017-11-20 14:20] VITALS: BP 158/88; PULSE 81; O2SAT 97
== END 2017-11-20 14:21 | disposition home or self-care (01) ==
LOC: C.EDB 10:07 → C.EDA 14:21
DX: K80.20 Calculus of gallbladder without cholecystitis without obstruction (principal); E11.9 Type 2 diabetes mellitus without complications; J44.9 Chronic obstructive pulmonary disease, unspecified; J45.909 Unspecified asthma, uncomplicated; I73.9 Peripheral vascular disease, unspecified; M79.7 Fibromyalgia; Z79.899 Other long term (current) drug therapy; Z82.49 Family history of ischemic heart disease and other diseases of the circulatory system; Z83.6 Family history of other diseases of the respiratory system; Z88.8 Allergy status to other drugs, medicaments and biological substances

== ENCOUNTER → 2017-11-28 | Outpatient (CLI) | payer OTHER ==
[~2017-11-28] MED LIST changes: +ACET300T3 PO; +ALLO100T PO; -ATV/2 PO; +CFT250 PO; -FERR1TAB23 PO; +FORM1NEB INH; -FRS/40 PO; +INSU100I23 INJ; -LEVA45AE INH; +MOME6000 NAE; -NASONEX INTNAS; +ONDA4TAB10 SL; -PERFORMIST INH; -POTA10TA PO; -RXC5 PO
== END | disposition home or self-care (01) ==
LOC: C.LABSPEC 10:45
PROVIDERS: ATTEND Urology
DX: N32.9 Bladder disorder, unspecified (principal)

== ENCOUNTER 2018-09-25 05:48 | Inpatient (IN) ==
--- NOTE | 2018-09-08 12:11 | Anesthesiology Consultation ---
Date of Service September 08, 2018 Assessment & Plan (1) Encounter for pre-operative examination: - Patient needs pulmonology clearance (09/18) prior to proceeding with surgery. Chart Review Chart Review: Acceptable Risk for Surgery (Pending pulmonology clearance) and Patient seen in Pre Admission Testing Consults Requested medical & cardiac (Dr. Whitehead (08/23) & Dr. Starks (09/13)) Pulmonology (Dr. Payton (09/18) - Patient was seen by cardiology on 08/23 for preoperative evaluation. Updated testing was ordered and done on 09/04. Note was added from cardiology on 09/05 stating, "No further cardiac testing warranted prior to planned spinal surgery. Considered moderate risk of perioperative cardiac complications based on your history/comorbidities." - Patient was seen by Dr. Starks on 09/14 for preoperative evaluation. Per note from that visit, "Based on available information and reviewing preoperative labs you are acceptable degree of risk to proceed with T10-11 decompression and fusion by Dr. Brito on September 25, 2018." History Surgery Operation Date: 09/25/18 07:45 Proposed Procedures p T10-T11 Decompression and Fusion, Spinal Monitoring - Esdras Brito, Height/Weight Height: 5 ft Weight: 82.7 kg Allergies Allergy/AdvReac Type Severity Reaction Status Date / Time albuterol Allergy Unknown tachycardia Verified 09/07/18 14:01 worse d/t moreon/parkinson/white syndrome pollen extracts Allergy Unknown sneezing Verified 09/07/18 14:01 and "runny eyes" adhesive tape Allergy Verified 09/08/18 09:34 oxycodone AdvReac Unknown GI SYMPTOMS Verified 09/07/18 14:01 seasonal allergies AdvReac Unknown coughing, Uncoded 09/07/18 14:01 sneezing Medications Home Medications Medication Instructions Recorded Confirmed Last Taken codeine 10 mg-guaifenesin 100 mg/5 5 ml PO UD PRN #1 ml 09/06/18 09/07/18 Unknown mL oral liquid allopurinol 100 mg tablet 200 mg PO QAM #180 tab 09/11/18 09/11/18 Unknown aspirin 81 mg tablet,delayed 81 mg PO QAM #90 tab 09/11/18 09/11/18 Unknown release blood sugar diagnostic strips #100 ea 09/11/18 09/11/18 Unknown cholecalciferol (vitamin D3) 1,000 1,000 unit PO DAILY #90 cap 09/11/18 09/11/18 Unknown unit capsule coenzyme Q10 100 mg capsule 100 mg PO QAM #90 cap 09/11/18 09/11/18 Unknown cyanocobalamin (vit B-12) ER 1,000 1,000 mcg PO DAILY #90 tab 09/11/18 09/11/18 Unknown mcg tablet,extended release duloxetine 60 mg capsule,delayed 60 mg PO BID #180 cap 09/11/18 09/11/18 Unknown release formoterol fumarate 20 mcg/2 mL 2 ml INHALATION Q12H PRN #120 ml 09/11/18 09/11/18 Unknown solution for nebulization furosemide 40 mg tablet 40 mg PO QAM #90 tab 09/11/18 09/11/18 Unknown gabapentin 400 mg capsule 400 mg PO QID #360 cap 09/11/18 09/11/18 Unknown hydralazine 100 mg tablet 100 mg PO QAM #90 tab 09/11/18 09/11/18 Unknown insulin syringe U-100 with needle #100 ea 09/11/18 09/11/18 Unknown 0.5 mL 31 gauge x 5/16" ipratropium-albuterol 0.5 mg-3 3 ml INHALATION QID #180 ml 09/11/18 09/11/18 Unknown mg(2.5 mg base)/3 mL nebulization soln isosorbide mononitrate ER 120 mg 120 mg PO QAM #90 tab 09/11/18 09/11/18 Unknown tablet,extended release 24 hr lancets #204 ea 09/11/18 09/11/18 Unknown levalbuterol 0.63 mg/3 mL solution 0.63 mg INHALATION Q4H PRN #36 ml 09/11/18 09/11/18 Unknown for nebulization levalbuterol HFA 45 mcg/actuation 1 puff INHALATION Q6H PRN #15 gm 09/11/18 09/11/18 Unknown aerosol inhaler loratadine 10 mg capsule 10 mg PO HS #90 cap 09/11/18 09/11/18 Unknown losartan 100 mg tablet 50 mg PO QAM #90 tab 09/11/18 09/11/18 Unknown lovastatin 20 mg tablet 20 mg PO PM #90 tab 09/11/18 09/11/18 Unknown magnesium oxide 400 mg (241.3 mg 400 mg PO DAILY #90 tab 09/11/18 09/11/18 Unknown magnesium) tablet metoprolol succinate ER 50 mg 50 mg PO BID #180 tab 09/11/18 09/11/18 Unknown tablet,extended release 24 hr mometasone 0.1 % topical cream 1 appln TOPICAL BID PRN #50 gm 09/11/18 09/11/18 Unknown montelukast 10 mg tablet 10 mg PO DAILY #90 tab 09/11/18 09/11/18 Unknown nitroglycerin 0.4 mg sublingual 0.4 mg SL UD PRN #90 tab 09/11/18 09/11/18 Unknown tablet omega-3 acid ethyl esters 1 gram 1 g PO DAILY #90 cap 09/11/18 09/11/18 Unknown capsule rabeprazole 20 mg tablet,delayed 20 mg PO QAM #90 tab 09/11/18 09/11/18 Unknown release ranitidine 300 mg tablet 300 mg PO HS #90 tab 09/11/18 09/11/18 Unknown sitagliptin 50 mg tablet 50 mg PO QAM #90 tab 09/11/18 09/11/18 Unknown glimepiride 1 mg tablet 0.5 mg PO .COMPLEX #30 tab 09/14/18 09/14/18 Unknown Past Medical History Medical History Bladder cancer (Acute) HX OF BLADDER CA Pelvic pain and gross hematuria 11/02/2017 pelvic ultrasound reveals left lateral bladder wall lesion 11/28/2017 status post cystoscopy 12/19/2017 status post transurethral resection and fulguration of bladder tumor Invasive high-grade urothelial carcinoma Stage II Status post completion of combined radiation and chemotherapy. Radiation completed 03/24/2018. She received 6440 cGy. Chemotherapy comprised of mi tomycin and 5-FU. Peripheral vascular disease (Chronic 06/10/11) Asthma CAD (coronary artery disease) Chronic kidney disease STAGE 3-F/U DR CARBAJAL AFTER DR MCCAIN Diabetes mellitus, type 2 F/U PCP-NEUROPATHY FEET Fibromyalgia GERD (gastroesophageal reflux disease) Gastroparesis Hyperlipidemia Hypertension Myocardial Infarction Obesity Osteoarthritis Primary lung adenocarcinoma dx ~2016, s/p lobectomy. SOB (shortness of breath) on exertion Sleep apnea NO DEVICE Solitary left kidney Exercise / Class Metabolic Activity III < 4 Walking/Shop/Light housework (Able to climb FOS with difficulty due to back pain, neuropathy, and SOB since lobectomy. Denies CP.) Past Family History Family History Mother , 74yo; Myocardial infarction Hypertension Emphysema lung Father , 56yo; Myocardial infarction Sister , 74yo; Myocardial infarction Daughter Chronic bronchitis Stroke Polycythemia Hypertension Hyperlipidemia Daughter , 37yo;complications of an autoimmune disorder; No problems noted. Son Hypertension Past Surgical History Surgical History H/O bilateral cataract extraction (Acute) History of transurethral destruction of bladder lesion (Acute) 12/19/17 Dr. Hahn Fusion of spine LUMBAR - 04/27/17 - MAC #3, ETT #7.5, Grade 1 View H/O cardiac radiofrequency ablation 1999-FOR [facility] WHITE SYNDROME History of bilateral tubal ligation History of bronchoscopy History of cardiac cath 1999..MD.. NO STENTS (AMRIK) 2003..MD..NO STENTS (AMRIK) History of carpal tunnel release BILAT History of cholecystectomy 11/30/17 - MAC #3, ETT #7.5, HiLo Oral, Grade 1 View History of colonoscopy History of coronary artery bypass graft 4 VESSELS CABG 1999 F/U DR WHITEHEAD History of endoscopic sinus surgery History of lobectomy of lung FARIBA [id number] CHEMO/XRT-F/U DR BOYCE/KRISTAL 01/05/16 - MAC #3, ETT #8.0, Grade 2 View History of nephrectomy R BENIGN TUMOR-F/U DR CARBAJAL AFTER DR MCCAIN Past Anesthesia History No Hx of Anesthesia Complications and No Family Hx of Anesthesia Complications History of PONV No Hx of PONV and No Hx of Motion Sickness Social History Smoking Status: Former smoker tobacco type: cigarettes Smoking cigarettes per day: 1-2 PPD x 30 yrs Do You Dip or Chew Tobacco: No Smoking End Date: 1999 Hx Alcohol Use: Yes Alcohol type: wine alcohol intake frequency: holidays/special occasions only Hx Substance Use: No substance use type: does not use Review of Systems Patient denies chest pain, cough, palpitations. +SOB/ROSALES (Since lobectomy) +Reflux (controlled with current medications) +Cough (when allergies are acting up) +Wheezing (better with nebulizer treatments) Physical Exam Vital Signs BP: 119/63 P: 62 R: 16 T: 97.9 SPO2: 97% on RA Constitutional + obese ENMT Mouth: + dentures (Full upper plate), + edentulous and + small oral opening Thyromental Distance: < 3.5 Finger Breadths (3) Mallampati Class: III Neck normal visual inspection and + short neck; neck extension not limited Respiratory normal respiratory effort Auscultation: + wheezes (expiratory wheezes heard throughout) Cardiovascular Rate/Rhythm: regular rate and regular rhythm Heart Sounds: no murmur Vessels: no carotid bruit Chest (Breasts) Chest: + vascular access device or port (port in left chest) Neurologic moves all extremities Psychiatric Orientation: alert and oriented x 3 Testing Laboratory Results 09/08/18 12:55 09/08/18 12:55 09/08/18 09/08/18 09/08/18 12:55 12:55 12:55 PT 10.2 INR 1.0 APTT 25.2 Hemoglobin A1c Urine Color Yellow Urine Appearance Clear Urine pH 5.5 Ur Specific [place] 1.013 Urine Protein Negative Urine Glucose (UA) Negative Urine Ketones Negative Urine Nitrite Negative Ur Leukocyte Esterase 2+ H Urine WBC (Auto) >30 H Urine RBC (Auto) 0-4 U Hyaline Cast (Auto) 0 U Epithel Cells (Auto) 10-20 H Urine Bacteria (Auto) Negative Blood Type A Positive Antibody Screen NEGATIVE 09/08/18 12:55 PT INR APTT Hemoglobin A1c 5.1 Urine Color Urine Appearance Urine pH Ur Specific [place] Urine Protein Urine Glucose (UA) Urine Ketones Urine Nitrite Ur Leukocyte Esterase Urine WBC (Auto) Urine RBC (Auto) U Hyaline Cast (Auto) U Epithel Cells (Auto) Urine Bacteria (Auto) Blood Type Antibody Screen 09/08/18 12:55 Urine Culture - Final Urine,Clean Catch Alpha strep. not enterococcus Electrocardiogram Date: 08/23/18 Findings: + NSR @ (61) Septal infarct. When compared with ECG of 02/22/18, Questionable change in initial forces of septal leads. Chest X-Ray Date: 03/13/18 Findings: + NAD Echocardiogram Date: 09/04/18 EF: 55-59% LV Function: normal Other Findings: + LVH (mild concentric) Isolated basal septal hypertrophy with maximal thickness of 1.8cm. There is very mild hypokinesis of the inferior posterior wall at the base all other wall segments sherri normally. Mild aortic valve sclerosis is present. Mild mitral regurgitation is present. Stress Test Date: 09/04/18 Type: nuclear Resting EF: 70% Myocardial perfusion imaging is normal. Overall left ventricular systolic f unction was normal without RWMA. The left ventricular EF was 70%. Compared to previous study of 02/28/17: areas of ischemia are no longer present. Other Testing CHEST CT WITH CONTRAST 06/06/18 FINDINGS: Heart is upper limits of normal in size. No pericardial effusion. Prior median sternotomy and CABG with coronary arterial calcifications noted. Mild saccular aneurysmal dilation about the CABG graft site anterior to the proximal ascending thoracic aorta, 9 x 7 mm which appears unchanged. There is no thoracic aortic aneurysm or dissection. Extensive calcified plaque about the thoracic aorta and imaged upper abdominal aorta. Prominent subcarinal lymph nodes measure up to 9 mm, unchanged. Additionally, mildly prominent lymph node interposed to the distal esophagus and descending thoracic aorta measures 8 mm, unchanged. No new or progressive adenopathy. The opacified pulmonary arterial tree appears unremarkable. Left subclavian [place]-p-Uguv catheter distal tip terminates within the superior aspect of the right atrium. Postoperative changes from prior left upper lobectomy. Trace left pleural effusion. Mild subsegmental bibasilar groundglass densities are suggestive of atelectasis. Mild mosaic attenuation of the lung bases suggest areas of associated air trapping. Prior cholecystectomy. No acute process of the imaged upper abdomen. Enteric contrast noted about the mid and distal esophagus. Soft tissues are unremarkable. Bones appear to be intact. No suspicious lytic or blastic lesions. IMPRESSION: 1. No acute intrathoracic abnormality identified. 2. Postoperative changes from prior left upper lobectomy. Trace left pleural effusion. 3. Unchanged size and appearance of the multiple bilateral solid pulmonary nodules measuring up to 5 mm. 4. Unchanged size of the prominent subcarinal and periesophageal lymph nodes. 5. Additional findings as above.
--- NOTE | 2018-09-08 12:24 | PAT Medication Instructions ---
Medication Instructions Date of Service September 08, 2018 Home Medications Perforomist 2 ml INHALATION Q12H NEEDED aspirin [Aspir-81] 81 mg PO QAM coenzyme Q10 [CoQ-10] 100 mg PO QAM furosemide 40 mg PO QAM hydralazine 100 mg PO QAM isosorbide mononitrate 120 mg PO QAM duloxetine [Cymbalta] 60 mg PO BID loratadine 10 mg PO HS lovastatin 20 mg PO PM cholecalciferol (vitamin D3) 1,000 unit capsule 1,000 unit PO DAILY codeine 10 mg-guaifenesin 100 mg/5 mL oral liquid 5 ml PO NEEDED cyanocobalamin (vit B-12) ER 1,000 mcg tablet,extended release 1,000 mcg PO DAILY magnesium oxide 400 mg (241.3 mg magnesium) tablet 400 mg PO DAILY nitroglycerin 0.4 mg sublingual tablet 0.4 mg SL NEEDED omega-3 acid ethyl esters 1 gram capsule 1 g PO DAILY rabeprazole 20 mg tablet,delayed release 20 mg PO QAM sitagliptin [Januvia] 50 mg PO QAM allopurinol 100 mg tablet 200 mg PO QAM blood sugar diagnostic strips #10 ea gabapentin 400 mg capsule 400 mg PO QID insulin glargine (U-100) 100 unit/mL (3 mL) subcutaneous pen 14 units SQ QPM insulin syringe U-100 with needle 0.5 mL 31 gauge x 5/16" levalbuterol 0.63 mg/3 mL solution for nebulization 0.63 mg INHALATION Q4H NEEDED losartan 100 mg tablet 50 mg PO QAM metoprolol succinate ER 50 mg tablet,extended release 24 hr 50 mg PO BID mometasone 0.1 % topical cream 1 appln TOPICAL BID NEEDED montelukast 10 mg tablet 10 mg PO DAILY ranitidine 300 mg tablet 300 mg PO HS Continue as directed nitroglycerin 0.4 mg sublingual tablet 0.4 mg SL NEEDED STOP taking 2 weeks before surgery coenzyme Q10 [CoQ-10] 100 mg PO QAM omega-3 acid ethyl esters 1 gram capsule 1 g PO DAILY STOP taking 24 hours before surgery mometasone 0.1 % topical cream 1 appln TOPICAL BID NEEDED DO NOT take the morning of surgery furosemide 40 mg PO QAM cholecalciferol (vitamin D3) 1,000 unit capsule 1,000 unit PO DAILY codeine 10 mg-guaifenesin 100 mg/5 mL oral liquid 5 ml PO NEEDED cyanocobalamin (vit B-12) ER 1,000 mcg tablet,extended release 1,000 mcg PO DAILY magnesium oxide 400 mg (241.3 mg magnesium) tablet 400 mg PO DAILY sitagliptin [Januvia] 50 mg PO QAM losartan 100 mg tablet 50 mg PO QAM Take morning of surgery With a small sip of water, OTHERWISE NOTHING TO EAT OR DRINK AFTER MIDNIGHT: Perforomist 2 ml INHALATION Q12H NEEDED (if needed) aspirin [Aspir-81] 81 mg PO QAM hydralazine 100 mg PO QAM isosorbide mononitrate 120 mg PO QAM duloxetine [Cymbalta] 60 mg PO BID rabeprazole 20 mg tablet,delayed release 20 mg PO QAM allopurinol 100 mg tablet 200 mg PO QAM gabapentin 400 mg capsule 400 mg PO QID levalbuterol 0.63 mg/3 mL solution for nebulization 0.63 mg INHALATION Q4H NEEDED (if needed) metoprolol succinate ER 50 mg tablet,extended release 24 hr 50 mg PO BID Take evening before surgery Perforomist 2 ml INHALATION Q12H NEEDED (if needed) duloxetine [Cymbalta] 60 mg PO BID loratadine 10 mg PO HS lovastatin 20 mg PO PM gabapentin 400 mg capsule 400 mg PO QID insulin glargine (U-100) 100 unit/mL (3 mL) subcutaneous pen 14 units SQ QPM levalbuterol 0.63 mg/3 mL solution for nebulization 0.63 mg INHALATION Q4H NEEDED (if needed) metoprolol succinate ER 50 mg tablet,extended release 24 hr 50 mg PO BID montelukast 10 mg tablet 10 mg PO DAILY ranitidine 300 mg tablet 300 mg PO HS Other Notes If you have any questions please call us at [phone] or [phone] or [phone] or [phone]
[2018-09-08 14:00] LABS: Basophils # (auto) 0.03 K/uL (0-0.2); Basophils % (auto) 0.7 %; Eosinophils # (auto) 0.12 K/uL (0-0.5); Eosinophils % (auto) 2.8 %; Hematocrit (blood only) 35.9 % (37-47); Hemoglobin 11.4 g/dL (12.0-16.0); Immature Granulocytes # (auto) 0.01 K/uL (0.00-0.02); Immature Granulocytes % (auto) 0.2 %; Lymphocytes # (auto) 1.03 K/uL (1.2-3.4); Mean Corpuscular Hgb Conc 31.8 g/dL (32-36); Mean Corpuscular Volume 87.3 fL (80-100); Mean Platelet Volume 9.5 fL (7.4-10.4); Monocytes % (auto) 16.3 %; Platelet Count 179 K/uL (130-400); RDW Coefficient of Variation 17.9 % (11.5-14.5); RDW Standard Deviation 57.2 fL (36.4-46.3); Red Blood Count 4.11 M/uL (4.2-5.4); White Blood Count 4.29 K/uL (4.8-10.8)
[2018-09-08 14:08] LABS: BUN Creatinine Ratio 20.2 (10-20); Calcium 9.9 mg/dl (8.5-10.1); Creatinine Clr Calc Pharmacy 37.2 ml/min; Est GFR (African American) 44.9; Est GFR (Non-African American) 38.8; Partial Thromboplastin Ratio 0.9; Partial Thromboplastin Time 25.2 Seconds (21.0-31.0); Potassium 4.8 mmol/L (3.5-5.1); Prothrombin Time 10.2 Seconds (9.0-12.0)
[2018-09-08 14:14] LABS: Estimated Average Glucose 100 mg/dl; Hemoglobin A1C 5.1 % (4.5-5.6)
[2018-09-08 14:23] LABS: Appearance Urine Clear (Clear); Bacteria Urine Automated Negative (Negative); Bilirubin Urine Negative (Negative); Blood Urine Negative (Negative); Cast Urine Automated 0 /lpf (0-5); Color Urine Yellow; Glucose Urine UA Negative (Negative); Ketones Urine Negative (Negative); Leukocyte Esterase Urine 2+ (Negative); Nitrite Urine Negative (Negative); Protein Urine Negative (Negative); RBC Urine Automated 0-4 /hpf (0-4); Specific Gravity Urine 1.013 (1.000-1.030); Urobilinogen Urine Negative (Negative); WBC Urine Automated >30 /hpf (0-5); pH Urine 5.5 (4.5-7.5)
[2018-09-25] MEDS ORDERED: ACETAMINOPHEN 500 MG TAB PO SCH (06:00)
[2018-09-25] MEDS ORDERED: LR 15ML/HR IV SCH (06:00)
[2018-09-25] MEDS ORDERED: CEFAZOLIN 2000MG 2,000 MG/15 ML SYR IV SCH (06:00)
[2018-09-25] MEDS ORDERED: GABAPENTIN 300 MG PO SCH (06:00)
[2018-09-25] MEDS ORDERED: CEFAZOLIN 3000MG 65 ML IV SCH (06:00)
[2018-09-25] MEDS ORDERED: CeleBREX 200 MG CAP PO SCH (06:00)
[2018-09-25] MEDS ORDERED: CEFAZOLIN 1000MG 1,000 MG/7.5 ML SYR IV SCH (06:00)
[2018-09-25 06:35] LABS: Partial Thromboplastin Time 26.2 Seconds (21.0-31.0); Prothrombin Time 10.1 Seconds (9.0-12.0)
[2018-09-25] MEDS ORDERED: fentaNYL citrate 100 MCG/2 ML VIAL ONE ×3 (06:43→08:46)
[2018-09-25] MEDS ORDERED: MIDAZOLAM HCL 1 MG/ML 2ML VIAL ONE (06:43)
[2018-09-25] MEDS ORDERED: BUPIVACAINE/EPINEPHRINE 0.5% MPF 1:200,000 30 ML VIAL ONE (06:48)
[2018-09-25] MEDS ORDERED: BACITRACIN INJ 50,000 UNIT VIAL ONE (06:48)
[2018-09-25] MEDS ORDERED: ONDANSETRON INJ 2 MG/ML 2 ML VIAL IV PRN ×2 (07:20→09:36)
[2018-09-25] MEDS ORDERED: LABETALOL HCL IV 5 MG/ML 20ML IV PRN (07:20)
[2018-09-25] MEDS ORDERED: ATROPINE SULFATE 0.1 MG/ML 10ML SYR IV PRN (07:20)
[2018-09-25] MEDS ORDERED: HYDROmorphone INJ 1 MG/ML SYRINGE IV PRN ×2 (07:20→12:14)
[2018-09-25] MEDS ORDERED: MEPERIDINE HCL 25 MG/ML CARP IV PRN (07:20)
[2018-09-25] MEDS ORDERED: PHENYLEPHRINE 100MCG/ML 5ML SYR IV PRN (07:20)
--- NOTE | 2018-09-25 07:35 | History & Physical Bridge Note ---
Date of Service September 25, 2018 History & Physical Bridge Note I have examined the patient, reviewed the History & Physical and in the interval since the performance of the History & Physical I have noted the following changes of clinical significance: no changes noted
--- NOTE | 2018-09-25 07:37 | History & Physical Report ---
Date of Service September 25, 2018 Assessment & Plan (1) Thoracic spinal stenosis: T10-T11 decompression and fusion Present on Admission?: Yes History of Present Illness Chief Complaint: Back and leg pain Primary Care Provider: Jordy Starks MD This is a 67-year-old female well-known to the presents with worsening back and leg symptoms here for surgical intervention. Allergies Allergy/AdvReac Type Severity Reaction Status Date / Time albuterol Allergy Unknown tachycardia Verified 09/25/18 06:26 worse d/t moreno/parkinson/white syndrome pollen extracts Allergy Unknown sneezing Verified 09/25/18 06:26 and "runny eyes" adhesive tape Allergy Verified 09/25/18 06:26 oxycodone AdvReac Unknown GI SYMPTOMS Verified 09/25/18 06:26 seasonal allergies AdvReac Unknown coughing, Uncoded 09/07/18 14:01 sneezing Home Medications Home Medications Medication Instructions Recorded Confirmed Type codeine 10 mg-guaifenesin 100 mg/5 5 ml PO UD PRN #1 ml 09/06/18 09/25/18 History mL oral liquid allopurinol 100 mg tablet 200 mg PO QAM #180 tab 09/11/18 09/25/18 Rx aspirin 81 mg tablet,delayed 81 mg PO QAM #90 tab 09/11/18 09/25/18 Rx release blood sugar diagnostic strips #100 ea 09/11/18 09/11/18 Rx cholecalciferol (vitamin D3) 1,000 1,000 unit PO DAILY #90 cap 09/11/18 09/25/18 Rx unit capsule coenzyme Q10 100 mg capsule 100 mg PO QAM #90 cap 09/11/18 09/25/18 Rx cyanocobalamin (vit B-12) ER 1,000 1,000 mcg PO DAILY #90 tab 09/11/18 09/25/18 Rx mcg tablet,extended release duloxetine 60 mg capsule,delayed 60 mg PO BID #180 cap 09/11/18 09/25/18 Rx release formoterol fumarate 20 mcg/2 mL 2 ml INHALATION Q12H PRN #120 ml 09/11/18 09/25/18 Rx solution for nebulization furosemide 40 mg tablet 40 mg PO QAM #90 tab 09/11/18 09/25/18 Rx gabapentin 400 mg capsule 400 mg PO QID #360 cap 09/11/18 09/25/18 Rx hydralazine 100 mg tablet 100 mg PO QAM #90 tab 09/11/18 09/25/18 Rx insulin syringe U-100 with needle #100 ea 09/11/18 09/11/18 Rx 0.5 mL 31 gauge x 5/16" ipratropium-albuterol 0.5 mg-3 3 ml INHALATION QID #180 ml 09/11/18 09/25/18 Rx mg(2.5 mg base)/3 mL nebulization soln lancets #204 ea 09/11/18 09/11/18 Rx levalbuterol 0.63 mg/3 mL solution 0.63 mg INHALATION Q4H PRN #36 ml 09/11/18 09/25/18 Rx for nebulization levalbuterol HFA 45 mcg/actuation 1 puff INHALATION Q6H PRN #15 gm 09/11/18 09/25/18 Rx aerosol inhaler loratadine 10 mg capsule 10 mg PO HS #90 cap 09/11/18 09/25/18 Rx losartan 100 mg tablet 50 mg PO QAM #90 tab 09/11/18 09/25/18 Rx lovastatin 20 mg tablet 20 mg PO PM #90 tab 09/11/18 09/25/18 Rx magnesium oxide 400 mg (241.3 mg 400 mg PO DAILY #90 tab 09/11/18 09/25/18 Rx magnesium) tablet metoprolol succinate ER 50 mg 50 mg PO BID #180 tab 09/11/18 09/25/18 Rx tablet,extended release 24 hr mometasone 0.1 % topical cream 1 appln TOPICAL BID PRN #50 gm 09/11/18 09/25/18 Rx montelukast 10 mg tablet 10 mg PO DAILY #90 tab 09/11/18 09/25/18 Rx nitroglycerin 0.4 mg sublingual 0.4 mg SL UD PRN #90 tab 09/11/18 09/25/18 Rx tablet omega-3 acid ethyl esters 1 gram 1 g PO DAILY #90 cap 09/11/18 09/25/18 Rx capsule rabeprazole 20 mg tablet,delayed 20 mg PO QAM #90 tab 09/11/18 09/25/18 Rx release ranitidine 300 mg tablet 300 mg PO HS #90 tab 09/11/18 09/25/18 Rx sitagliptin 50 mg tablet 50 mg PO QAM #90 tab 09/11/18 09/25/18 Rx glimepiride 1 mg tablet 0.5 mg PO .COMPLEX #30 tab 09/14/18 09/25/18 Rx Past Med/Surg History Social History Preferred Language: Lithuanian Communication Ability: Effective Visual Impairment: No Limitations Hearing Ability: Normal Chemical Process Engineer Required: No Beliefs That Will Affect Care: None marital status: Current Living Situation: Spouse current occupational status: retired current occupation: deputy clerk of superior court; Other Information That Helps Us Care for You: No Feels Safe at Home: Yes Smoking Status: Former smoker Tobacco Type: cigarettes Cigarettes Per Day: 1-2 PPD x 30 yrs Do You Dip or Chew Tobacco: No Smoking End Date: 1999 Second Hand Exposure: No Hx Alcohol Use: Yes Alcohol type: wine Hx Substance Use: No caffeine: Yes (1 cup/day) during the past year weight has: decreased > 10 lbs Physical Exam Physical Exam: On exam she is alert and oriented with bilateral lower extremity weakness. Results & Data Vital Signs (Past 12 Hours) Vital Signs Temp Pulse Resp BP Pulse Ox 09/25/18 06:12 36.6 C 78 18 188/74 H 98
[2018-09-25] MEDS ORDERED: HYDROmorphone INJ 2 MG/ML SYR/VIAL ONE ×2 (08:18→08:26)
[2018-09-25] MEDS ORDERED: FLOSEAL HEMOSTATIC MATRIX 10ML TOP ONE (08:26)
[2018-09-25] MEDS ORDERED: LIDOCAINE HCL 2% 2 ML VIAL/AMP(20MG/ML) INFIL ONE (08:28)
[2018-09-25] MEDS ORDERED: PROPOFOL IV EMULSION 10 MG/ML 20 ML VIAL IV ONE (08:28)
[2018-09-25] MEDS ORDERED: ONDANSETRON INJ 2 MG/ML 2 ML VIAL ONE (08:28)
[2018-09-25] MEDS ORDERED: DEXAMETHASONE SOD INJ 4 MG/ML VIAL ONE (08:28)
[2018-09-25] MEDS ORDERED: ROCURONIUM BROMIDE 10 MG/ML 5 ML VIAL ONE (08:28)
[2018-09-25] MEDS ORDERED: GLYCOPYRROLATE 0.2 MG/ML VIAL ONE ×2 (08:28→09:06)
[2018-09-25] MEDS ORDERED: SUCCINYLCHOLINE CHLORIDE 20 MG/ML 10 ML VIAL ONE (08:28)
[2018-09-25] MEDS ORDERED: NEOSTIGMINE METHYLSULFATE 1 MG/ML 10ML VIAL ONE (08:28)
[2018-09-25] MEDS ORDERED: PHENYLEPHRINE 100MCG/ML 5ML SYR ONE (09:06)
[2018-09-25] MEDS ORDERED: ePHEDrine sulfate 50 MG/ML SYR ONE (09:06)
[2018-09-25] MEDS ORDERED: LABETALOL HCL IV 5 MG/ML 20ML IV ONE (09:06)
[2018-09-25] MEDS ORDERED: LARYING-O-JET KIT (LTA) ONE (09:06)
[2018-09-25] MEDS ORDERED: ESMOLOL HCL INJ 10 MG/ML 10ML VIAL IV ONE (09:06)
--- NOTE | 2018-09-25 09:35 | Operative Report ---
Post Operative Report Pre & Post Diagnosis Operation Date: 09/25/18 07:45 Pre-Op Diagnosis: Intervertebral Disc Disorders with Myelopathy Obesity Post-Op Diagnosis: Same Procedure Operation Date: 09/25/18 07:45 Actual Procedures #1 T10-T11. #2 posterior spinal fusion T10-11. #3 placement posterior instrumentation using medic created rods and screws T10-T11. #4 placement in fuse collagen sponge, mass graft in the posterior lateral gutters. Surgeon Esdras Brito, Professional Healthcare Representative Arcelia Del Valle Estimated Blood Loss 75 Findings See Below The patient is 5 foot tall and 83.2 kg with a BMI of 35.8. The patient's body habitus created significant technical difficulty adding at least 25% increase in operative time. Specimens None Indications This is a 67-year-old female presents with worsening leg weakness numbness and tingling. Subsequently elected to go the above-mentioned procedure. Description of Procedure Patient was met with identified and informed consent obtained. Patient was then taken to the operative suite underwent intubation placed in a prone position the David table on top of the Juanito frame. All bony prominences well-padded eyes inspected to ensure no external pressure placed upon the peer at this point the thoracolumbar spine is prepped and draped in a normal sterile fashion. Sharp dissection with the assistance of Bovie cautery was then performed down to and exposing the lamina and transverse processes of T10 and T11. I then performed a midline complete laminectomy of T10 including bilateral medial facetectomies for complete decompression. Pedicle screws were then placed in T10-T11 bilaterally with assistance of fluoroscopy and appropriate size carmella locked in position. The transverse processes of T10-T11 were then burred to subcortical bleeding bone. Infuse collagen sponge master graft local autograft placed in the posterior lateral gutters. 15 round GHAZALA drain inserted. The incision was then closed with 1 Vicryl in the fascia 2-0 Vicryl subcutaneously and 4 Monocryl for final skin closure. Steri-Strip sterile dressings placed. Patient will continue PACU stable condition. Please note Arcelia Del Valle present throughout the entire procedure involved in patient positioning complex portions of the surgery and final skin closure. I attest to the content of the Intraoperative Record and any orders documented therein. Any exceptions are noted below.
[2018-09-25] MEDS ORDERED: TRAMADOL HCL 50 MG TABLET PO PRN (09:36)
[2018-09-25] MEDS ORDERED: BISACODYL 10 MG SUPP PR PRN (09:36)
[2018-09-25] MEDS ORDERED: LORazepam 0.5 MG/1 ML VIAL IV PRN (09:36)
[2018-09-25] MEDS ORDERED: ACETAMINOPHEN 1,000 MG/100 ML VIAL IV PRN (09:36)
[2018-09-25] MEDS ORDERED: FAMOTIDINE 20 MG TAB PO PRN (09:36)
[2018-09-25] MEDS ORDERED: HYDROmorphone INJ 0.5 MG/0.5 ML SYR IV PRN (09:36)
[2018-09-25] MEDS ORDERED: DO NOT ADMINISTER FLU VACCINE PRN (09:36)
[2018-09-25] MEDS ORDERED: ONDANSETRON 4 MG TAB PO PRN (09:36)
[2018-09-25] MEDS ORDERED: DO NOT ADMINISTER PNEUMOCOCCAL VACCINE PRN (09:36)
[2018-09-25] MEDS ORDERED: PROMETHAZINE HCL 12.5 MG in SODIUM CHLORIDE 0.9% 50 ML IV PRN (09:36)
[2018-09-25] MEDS ORDERED: MAGNESIUM HYDROXIDE SUSP 30 ML UDC PO PRN (09:36)
[2018-09-25] MEDS ORDERED: LORazepam 0.5 MG TAB PO PRN (09:36)
[2018-09-25] MEDS ORDERED: METOCLOPRAMIDE HCL INJ 5 MG/ML 2 ML VIAL IV PRN (09:36)
[2018-09-25] MEDS ORDERED: SOD PHOSPHATE/SOD BIPHOSPHATE ENEMA 132 ML BTL PR PRN (09:36)
[2018-09-25] MEDS ORDERED: PROPOFOL IV EMULSION 10 MG/ML 100 ML VIAL IV ONE (09:50)
--- NOTE | 2018-09-25 09:53 | Fluoroscopy Report ---
FL thoracic spine 2V CLINICAL HISTORY: 67 years-old Female presenting with T10-T11 DECOMPRESSION AND FUSION. TECHNIQUE: 2 fluoroscopic image(s) recorded as part of an intraoperative procedure. COMPARISON: 10/04/2013. FINDINGS/IMPRESSION: There has been interval placement of bilateral transpedicular screw carmella fixation at 2 adjacent levels in the lower thoracic spine. No gross hardware complication. Minimal anterior vertebral body height loss may be present at the lower level. Partially visualized median sternotomy wires. Scattered surgi traci clips and surgical material. Please see surgical report for further details. Fluoroscopy dosage (mGy): 23.51. Fluoroscopy time: 39.1 seconds. Number or time of high level fluoroscopy (HLF), digital spot, or digital subtraction images: 0. Electronically signed by: Medhat Garcia M.D. 09/25/2018 9:51 AM
[2018-09-25] MEDS: fentaNYL citrate 100 MCG/2 ML VIAL IV PRN ×4 (10:21→10:38)
--- NOTE | 2018-09-25 11:16 | Anesthesiology Progress Note ---
Date of Service September 25, 2018 Anesthesia Post Procedure Vital Signs Vital Signs: Temp Pulse Resp BP Pulse Ox 09/25/18 11:00 36.4 C L 80 20 124/47 L 97 09/25/18 10:50 36.4 C L 84 20 149/60 H 96 09/25/18 10:40 36.1 C L 82 24 114/62 99 09/25/18 10:30 36.1 C L 77 16 114/62 98 09/25/18 10:20 36.1 C L 77 16 104/92 98 09/25/18 10:10 36.1 C L 76 12 157/60 H 97 09/25/18 10:00 36.1 C L 78 19 138/88 96 09/25/18 09:50 36.1 C L 74 16 132/62 96 09/25/18 09:44 36.1 C L 81 10 L 176/79 H 95 09/25/18 06:12 36.6 C 78 18 188/74 H 98 The patient is awake and stable. She has some numbness that Dr. Brito is aware of. Pain Intensity Upper Pelvic: Pain Intensity: 3 Transfer of Care Handoff Completed per policy Notes Mental Status: alert / awake / arousable Patient Amnestic to Procedure: Yes Nausea / Vomiting: adequately controlled Pain: adequately controlled Airway Patency, RR, SpO2: stable & adequate BP & HR: stable & adequate Hydration State: stable & adequate Anesthetic Complications: no major complications apparent and Pt Satisfied with anesthetic care
[2018-09-25] MEDS ORDERED: NITROGLYCERIN SL 0.4 MG/TAB TAB SL PRN (11:26)
[2018-09-25] MEDS: SODIUM CHLORIDE 0.9% 1000ML 1,000 ML IV SCH ×2 (11:54→18:36)
[2018-09-25] MEDS: ACETAMINOPHEN 500 MG TAB PO PRN ×2 (12:02→23:39)
[2018-09-25] MEDS: GABAPENTIN 400 MG CAP PO SCH ×3 (12:51→20:14)
[2018-09-25] MEDS: ALUMINUM/MAGNESIUM SUSP 30 ML UDC PO PRN ×2 (13:50→20:21)
--- NOTE | 2018-09-25 13:53 | Hospitalist Consultation ---
Date of Consultation September 25, 2018 Assessment & Plan (1) Thoracic spinal stenosis: - S/P Thoracic Decompression and Fusion on 09/25 - Pain management, PT/OT, DVT prophylaxis, surgical management per primary team Present on Admission?: Yes (2) Suprapubic pain: - Reports this as cramping like period cramps but also feels similar to when she would get radiation - does have some mild erythema of R abdominal folds and can use Desenex - Will check U/A to R/O infection; uncertain if temp Oakley placed during OR? can monitor urine output and monitor for retention - Reports last BM was on 09/24 but will monitor for constipation as cause of cramping - States pain started after surgery and was present prior; apparently actually improved with Maalox so maybe just gaseous distention? (3) Type 2 diabetes mellitus: - A1c is 5.1; per record review it appears that she has mid-day lows - given her A1c she could transition off anti-diabetics - She is tolerating a diet and can continue her oral regimen; did have some Dexamethasone so may have some elevating glucose - Given her A1c it wouldn't be unreasonable to D/C her sulfonylurea and pending monitoring may ultimately come off Januvia - and given the type 2 nature, diet and exercise could ultimately stabilize this (4) Chronic anemia: - Stable - likely in the setting of renal impairment; will monitor (5) Urothelial carcinoma of bladder: - Currently off radiation/chemo - follows with Dr. Peterson (6) Non-small cell lung cancer: - Remote history and is S/P resection; no ongoing issues at this time (7) CKD (chronic kidney disease), stage IV: - STABLE with baseline appearing around 1.3-1.6 and will monitor post- operatively (8) CAD (coronary atherosclerotic disease): - H/O CT and CABG and HTN/HLD; denies chronic angina - Continue ASA 81 mg daily, Furosemide 40 mg daily; Hydralazine 100 mg daily; Losartan 50 mg daily, Lovastatin 20 mg daily, Toprol XL 50 mg BID (9) COPD (chronic obstructive pulmonary disease): - STABLE - no signs of exacerbation at this time - Continue PRN nebs; Singulair Supervising Physician Co-Signing Physician Notes Attending note: patient seen and examined with Nilda Fonseca PA-C. I agree with her HPI, history, exam, ROS and A/P. I personally reviewed the labs and imaging findings. - s/p thoracic surgery: patient doing reasonably well, minimal pain, getting around with therapy, management per Dr. Brito - DM type II: hold oral agents and use Novolog SS will check BMP in the morning as well as CBC, follow vitals and follow for and clinical changes History of Present Illness Reason for Consultation: Med Management Attending Physician: Esdras Brito, DO History of Present Illness Ms. Villa is a 67 y/o female with PMHx of T2DM, COPD, CAD S/P CABG, Peripheral Neuropathy, DEANA, CKD III/IV, Chronic Anemia, Lung Adenocarcinoma Stage I S/P Resection, Urothelial Carcinoma Stage II S/P Radiation/Chemotherapy (complete at this time) who is S/P Thoracic Decompression/Fusion. She is doing well post- operatively but having some intermittent cramping lower abdominal pain similar to "period cramps". Reports last BM was last evening. Hasn't voided yet since arriving from surgery but didn't have urinary symptoms prior to surgery. Has some mild erythema of the R side abdominal folds and does have a H/O radiation to this region. Back feels well and still has some mild numbness in the legs. She does have a H/O CAD/CABG but denies anginal or ACS symptoms. No H/O DVT/PE. Allergies Allergy/AdvReac Type Severity Reaction Status Date / Time albuterol Allergy Unknown tachycardia Verified 09/25/18 06:26 worse d/t moreno/parkinson/white syndrome pollen extracts Allergy Unknown sneezing Verified 09/25/18 06:26 and "runny eyes" adhesive tape Allergy Verified 09/25/18 06:26 oxycodone AdvReac Unknown GI SYMPTOMS Verified 09/25/18 06:26 seasonal allergies AdvReac Unknown coughing, Uncoded 09/07/18 14:01 sneezing Home Medications Home Medications Medication Instructions Recorded Confirmed Type codeine 10 mg-guaifenesin 100 mg/5 5 ml PO UD PRN #1 ml 09/06/18 09/25/18 History mL oral liquid allopurinol 100 mg tablet 200 mg PO QAM #180 tab 09/11/18 09/25/18 Rx aspirin 81 mg tablet,delayed 81 mg PO QAM #90 tab 09/11/18 09/25/18 Rx release blood sugar diagnostic strips #100 ea 09/11/18 09/11/18 Rx cholecalciferol (vitamin D3) 1,000 1,000 unit PO DAILY #90 cap 09/11/18 09/25/18 Rx unit capsule coenzyme Q10 100 mg capsule 100 mg PO QAM #90 cap 09/11/18 09/25/18 Rx cyanocobalamin (vit B-12) ER 1,000 1,000 mcg PO DAILY #90 tab 09/11/18 09/25/18 Rx mcg tablet,extended release duloxetine 60 mg capsule,delayed 60 mg PO BID #180 cap 09/11/18 09/25/18 Rx release formoterol fumarate 20 mcg/2 mL 2 ml INHALATION Q12H PRN #120 ml 09/11/18 09/25/18 Rx solution for nebulization furosemide 40 mg tablet 40 mg PO QAM #90 tab 09/11/18 09/25/18 Rx gabapentin 400 mg capsule 400 mg PO QID #360 cap 09/11/18 09/25/18 Rx hydralazine 100 mg tablet 100 mg PO QAM #90 tab 09/11/18 09/25/18 Rx insulin syringe U-100 with needle #100 ea 09/11/18 09/11/18 Rx 0.5 mL 31 gauge x 5/16" ipratropium-albuterol 0.5 mg-3 3 ml INHALATION QID #180 ml 09/11/18 09/25/18 Rx mg(2.5 mg base)/3 mL nebulization soln lancets #204 ea 09/11/18 09/11/18 Rx levalbuterol 0.63 mg/3 mL solution 0.63 mg INHALATION Q4H PRN #36 ml 09/11/18 09/25/18 Rx for nebulization levalbuterol HFA 45 mcg/actuation 1 puff INHALATION Q6H PRN #15 gm 09/11/18 09/25/18 Rx aerosol inhaler loratadine 10 mg capsule 10 mg PO HS #90 cap 09/11/18 09/25/18 Rx losartan 100 mg tablet 50 mg PO QAM #90 tab 09/11/18 09/25/18 Rx lovastatin 20 mg tablet 20 mg PO PM #90 tab 09/11/18 09/25/18 Rx magnesium oxide 400 mg (241.3 mg 400 mg PO DAILY #90 tab 09/11/18 09/25/18 Rx magnesium) tablet metoprolol succinate ER 50 mg 50 mg PO BID #180 tab 09/11/18 09/25/18 Rx tablet,extended release 24 hr mometasone 0.1 % topical cream 1 appln TOPICAL BID PRN #50 gm 09/11/18 09/25/18 Rx montelukast 10 mg tablet 10 mg PO DAILY #90 tab 09/11/18 09/25/18 Rx nitroglycerin 0.4 mg sublingual 0.4 mg SL UD PRN #90 tab 09/11/18 09/25/18 Rx tablet omega-3 acid ethyl esters 1 gram 1 g PO DAILY #90 cap 09/11/18 09/25/18 Rx capsule rabeprazole 20 mg tablet,delayed 20 mg PO QAM #90 tab 09/11/18 09/25/18 Rx release ranitidine 300 mg tablet 300 mg PO HS #90 tab 09/11/18 09/25/18 Rx sitagliptin 50 mg tablet 50 mg PO QAM #90 tab 09/11/18 09/25/18 Rx glimepiride 1 mg tablet 0.5 mg PO .COMPLEX #30 tab 09/14/18 09/25/18 Rx hydrocodone-acetaminophen [[place]] 1 tab PO Q4H PRN #30 tab 09/26/18 Rx Patient History Medical History Solitary left kidney Bladder cancer (Acute) HX OF BLADDER CA Pelvic pain and gross hematuria 11/02/2017 pelvic ultrasound reveals left lateral bladder wall lesion 11/28/2017 status post cystoscopy 12/19/2017 status post transurethral resection and fulguration of bladder tumor Invasive high-grade urothelial carcinoma Stage II Status post completion of combined radiation and chemotherapy. Radiation completed 03/24/2018. She received 6440 cGy. Chemotherapy comprised of mitomycin and 5-FU. Peripheral vascular disease (Chronic 06/10/11) Asthma CAD (coronary artery disease) Chronic kidney disease STAGE 3-F/U DR CARBAJAL AFTER DR MCCAIN Diabetes mellitus, type 2 F/U PCP-NEUROPATHY FEET Fibromyalgia GERD (gastroesophageal reflux disease) Gastroparesis Hyperlipidemia Hypertension Myocardial Infarction Obesity Osteoarthritis Primary lung adenocarcinoma dx ~2016, s/p lobectomy. SOB (shortness of breath) on exertion Sleep apnea NO DEVICE Surgical History H/O bilateral cataract extraction (Acute) History of transurethral destruction of bladder lesion (Acute) 12/19/17 Dr. Hahn Fusion of spine LUMBAR - 04/27/17 - MAC #3, ETT #7.5, Grade 1 View H/O cardiac radiofrequency ablation 1999-FOR [facility] SYNDROME History of bilateral tubal ligation History of bronchoscopy History of cardiac cath 1999..CT.. NO STENTS ([facility]) 2003..CT..NO STENTS ([facility]) History of carpal tunnel release BILAT History of cholecystectomy 11/30/17 - MAC #3, ETT #7.5, HiLo Oral, Grade 1 View History of colonoscopy History of coronary artery bypass graft 4 VESSELS CABG 1999 F/U DR WHITEHEAD History of endoscopic sinus surgery History of lobectomy of lung FARIBA [id number] CHEMO/XRT-F/U DR BOYCE/KRISTAL 01/05/16 - MAC #3, ETT #8.0, Grade 2 View History of nephrectomy R BENIGN TUMOR-F/U DR CARBAJAL AFTER DR MCCAIN Family History Mother , 74yo; Myocardial infarction Hypertension Emphysema lung Father , 56yo; Myocardial infarction Sister , 74yo; Myocardial infarction Daughter Chronic bronchitis Stroke Polycythemia Hypertension Hyperlipidemia Daughter , 37yo;complications of an autoimmune disorder; No problems noted. Son Hypertension Social History Preferred Language: Japanese Communication Ability: Effective Visual Impairment: No Limitations Hearing Ability: Normal Sales And Events Coordinator Required: No Beliefs That Will Affect Care: None marital status: Current Living Situation: Spouse current occupational status: retired current occupation: brokerage purchase and sale clerk; Other Information That Helps Us Care for You: No Feels Safe at Home: Yes Smoking Status: Former smoker Tobacco Type: cigarettes Cigarettes Per Day: 1-2 PPD x 30 yrs Do You Dip or Chew Tobacco: No Smoking End Date: 1999 Second Hand Exposure: No Hx Alcohol Use: Yes Alcohol type: wine Hx Substance Use: No caffeine: Yes (1 cup/day) during the past year weight has: decreased > 10 lbs Review of Systems Constitutional: no fever and no chills Eyes: no worsening vision Ear, Nose, Mouth, Throat: no sore throat and no dysphagia Respiratory: no cough and no dyspnea Cardiovascular: no chest pain, no palpitations, no lightheadedness and no edema Gastrointestinal: + abdominal pain (more suprapubic and cramping - intermittent); no nausea, no vomiting, no constipation and no diarrhea/loose stools Genitourinary: no dysuria (prior to surgery - hasn't voided since surgery/pain started) Musculoskeletal: no back pain Integumentary: no rash Physical Exam Constitutional: WD/WN, vitals as above Eyes: + anicteric sclerae ENMT: Ears: no hearing impairment Neck: trachea midline Respiratory: normal respiratory effort, lungs clear to auscultation Cardiovascular: Rate/Rhythm: regular rate and regular rhythm Heart Sounds: + murmur Gastrointestinal (Abdomen): Inspection/Auscultation: normal bowel sounds; abdomen not distended Percussion/Palpation: abdomen soft; abdomen nontender Musculoskeletal: Head/Neck/Chest: normocephalic and head atraumatic Skin: + erythema (mild in R sided abdominal folds - mild irritation to touch) Neurologic: moves all extremities Psychiatric: A+Ox3, euthymic affect Results & Data Vital Signs (Past 12 Hours) Vital Signs Temp Pulse Resp BP BP Pulse Ox 09/25/18 13:06 36.6 C 84 15 123/70 97 09/25/18 12:22 89 18 125/73 97 09/25/18 11:50 84 16 123/73 100 09/25/18 11:20 36.6 C 83 16 124/69 98 09/25/18 11:00 36.4 C L 80 20 124/47 L 97 09/25/18 10:50 36.4 C L 84 20 149/60 H 96 09/25/18 10:40 36.1 C L 82 24 114/62 99 09/25/18 10:30 36.1 C L 77 16 114/62 98 09/25/18 10:20 36.1 C L 77 16 104/92 98 09/25/18 10:10 36.1 C L 76 12 157/60 H 97 09/25/18 10:00 36.1 C L 78 19 138/88 96 09/25/18 09:50 36.1 C L 74 16 132/62 96 09/25/18 09:44 36.1 C L 81 10 L 176/79 H 95 09/25/18 06:12 36.6 C 78 18 188/74 H 98 PG Care Time/CCT Total # of Minutes Spent Total Time Spent with Patient: Total time spent is greater than 50% in coordination of care (as documented) at patient's floor/unit and/or counseling patient:
[2018-09-25] MEDS: HYDROCODONE/ACETAMOPHEN 5/325MG TAB PO PRN ×2 (14:44→20:21)
[2018-09-25] MEDS: ALBUT/IPRATROP 3MG/0.5MG NEB 3 ML VIAL INH SCH ×2 (15:14→19:55)
[2018-09-25] MEDS: CEFAZOLIN 2000MG 2,000 MG/15 ML SYR IV SCH ×2 (15:46→23:32)
[2018-09-25] MEDS: GLIMEPIRIDE 2 MG TAB PO SCH (17:54)
[2018-09-25] MEDS: METOPROLOL SUCC 50MG EXT REL TAB PO SCH (20:14)
[2018-09-25] MEDS: LORATADINE 10 MG TAB PO SCH (20:14)
[2018-09-25] MEDS: MONTELUKAST SODIUM 10 MG TABLET PO SCH (20:14)
[2018-09-25] MEDS: DULOXETINE HCL 60 MG CAP PO SCH (20:14)
[2018-09-25] MEDS: LOVASTATIN 20 MG TAB PO SCH (20:15)
[2018-09-25] MEDS: DOCUSATE SODIUM/SENNA 50/8.6MG TAB PO SCH (20:15)
[2018-09-25] MEDS: MICONAZOLE NITRATE POWDER 43 GM EXT SCH (20:34)
[2018-09-25 21:00] LABS: Appearance Urine Clear (Clear); Bacteria Urine Automated Negative (Negative); Bilirubin Urine Negative (Negative); Blood Urine Negative (Negative); Color Urine Yellow; Glucose Urine UA Negative (Negative); Ketones Urine Negative (Negative); Leukocyte Esterase Urine Trace (Negative); Nitrite Urine Negative (Negative); Protein Urine Negative (Negative); RBC Urine Automated 0-4 /hpf (0-4); Specific Gravity Urine 1.024 (1.000-1.030); Urobilinogen Urine Negative (Negative)
[2018-09-26] MEDS: SODIUM CHLORIDE 0.9% 1000ML 1,000 ML IV SCH (00:07)
[2018-09-26] MEDS ORDERED: COUGH DROP (SUGAR FREE) LOZ 24 LOZ/1 BOX BUCCAL PRN (04:27)
[2018-09-26] MEDS: POLYETHYLENE (MIRALAX) 17 GM PACK PO SCH ×4 (05:29→23:27)
[2018-09-26 06:06] LABS: Eosinophils # (auto) 0.01 K/uL (0-0.5); Eosinophils % (auto) 0.1 %; Hemoglobin 9.3 g/dL (12.0-16.0); Immature Granulocytes # (auto) 0.02 K/uL (0.00-0.02); Immature Granulocytes % (auto) 0.3 %; Lymphocytes # (auto) 0.58 K/uL (1.2-3.4); Lymphocytes % (auto) 8.4 %; Mean Corpuscular Hgb Conc 32.1 g/dL (32-36); Mean Corpuscular Volume 87.9 fL (80-100); Mean Platelet Volume 9.4 fL (7.4-10.4); Monocytes # (auto) 0.76 K/uL (0.11-0.59); Neutrophils # (auto) 5.55 K/uL (1.4-6.5); Neutrophils % (auto) 80.2 %; Platelet Count 142 K/uL (130-400); RDW Coefficient of Variation 16.7 % (11.5-14.5); RDW Standard Deviation 53.6 fL (36.4-46.3); White Blood Count 6.92 K/uL (4.8-10.8)
[2018-09-26 06:35] LABS: BUN Creatinine Ratio 16.8 (10-20); Calcium 8.6 mg/dl (8.5-10.1); Creatinine Clr Calc Pharmacy 33.7 ml/min; Est GFR (African American) 39.7; Est GFR (Non-African American) 34.3; Potassium 4.9 mmol/L (3.5-5.1)
[2018-09-26] MEDS: ALBUT/IPRATROP 3MG/0.5MG NEB 3 ML VIAL INH SCH ×4 (07:12→19:30)
--- NOTE | 2018-09-26 07:33 | Anesthesiology Progress Note ---
Date of Service September 26, 2018 Anesthesia Post Procedure Vital Signs Vital Signs: Temp Pulse Resp BP BP Pulse Ox 09/26/18 07:13 82 17 94 09/26/18 04:10 36.8 C 93 H 18 158/81 H 97 09/25/18 23:10 36.7 C 94 H 18 145/81 H 92 09/25/18 20:10 36.7 C 97 H 18 169/77 H 93 09/25/18 19:55 68 16 95 09/25/18 19:00 36.5 C 96 H 18 149/75 H 96 09/25/18 16:01 36.7 C 92 H 18 94 09/25/18 15:15 72 18 99 09/25/18 13:06 36.6 C 84 15 123/70 97 09/25/18 12:22 89 18 125/73 97 09/25/18 11:50 84 16 123/73 100 09/25/18 11:20 36.6 C 83 16 124/69 98 09/25/18 11:00 36.4 C L 80 20 124/47 L 97 09/25/18 10:50 36.4 C L 84 20 149/60 H 96 09/25/18 10:40 36.1 C L 82 24 114/62 99 09/25/18 10:30 36.1 C L 77 16 114/62 98 09/25/18 10:20 36.1 C L 77 16 104/92 98 09/25/18 10:10 36.1 C L 76 12 157/60 H 97 09/25/18 10:00 36.1 C L 78 19 138/88 96 09/25/18 09:50 36.1 C L 74 16 132/62 96 09/25/18 09:44 36.1 C L 81 10 L 176/79 H 95 Pain Intensity Upper Pelvic: Pain Intensity: 3 Notes Mental Status: alert / awake / arousable and participated in evaluation Patient Amnestic to Procedure: Yes Nausea / Vomiting: adequately controlled Pain: adequately controlled Airway Patency, RR, SpO2: stable & adequate BP & HR: stable & adequate Hydration State: stable & adequate Anesthetic Complications: no major complications apparent and Pt Satisfied with anesthetic care
[2018-09-26 08:08] VITALS: TEMP 98.1
[2018-09-26] MEDS: GLIMEPIRIDE 2 MG TAB PO SCH (08:39)
[2018-09-26] MEDS: HydrALAZINE TAB 50 MG TAB PO SCH (08:40)
[2018-09-26] MEDS: DULOXETINE HCL 60 MG CAP PO SCH ×2 (08:41→20:42)
[2018-09-26] MEDS: LOSARTAN POTASSIUM 50 MG TAB PO SCH (08:41)
[2018-09-26] MEDS: MICONAZOLE NITRATE POWDER 43 GM EXT SCH ×2 (08:41→20:43)
[2018-09-26] MEDS: FUROSEMIDE 40 MG TAB PO SCH (08:42)
[2018-09-26] MEDS: SITAGLIPTIN PHOSPHATE 25 MG TAB PO SCH (08:42)
[2018-09-26] MEDS: ASPIRIN 81 MG ECTAB PO SCH (08:42)
[2018-09-26] MEDS: METOPROLOL SUCC 50MG EXT REL TAB PO SCH ×2 (08:43→20:42)
[2018-09-26] MEDS: PANTOprazole 40 MG TAB PO SCH (08:43)
[2018-09-26] MEDS: MAGNESIUM OXIDE 400 MG TAB PO SCH (08:43)
[2018-09-26] MEDS: GABAPENTIN 400 MG CAP PO SCH ×4 (08:43→20:42)
[2018-09-26] MEDS: CYANOCOBALAMIN 500 MCG TABLET (VITAMIN B-12) PO SCH (08:44)
[2018-09-26] MEDS: ALLOPURINOL 100 MG TAB PO SCH (08:44)
[2018-09-26] MEDS ORDERED: NON-FORMULARY MEDICATION (Coenzyme Q10 [Coq-10] 100 MG) PO SCH (09:00)
--- NOTE | 2018-09-26 09:15 | Orthopedic Progress Note ---
Date of Service September 26, 2018 Assessment & Plan (1) Thoracic spinal stenosis: This time we will continue physical therapy monitor GHAZALA output anticipate discharge home tomorrow. Present on Admission?: Yes Subjective Back pain is controlled leg symptoms improved. Physical Exam Physical Exam: Patient is in the chair at the bedside. She has reasonable strength testing. She is quite comfortable. Results & Data Vital Signs (Past 12 Hours) Vital Signs Temp Pulse Resp BP Pulse Ox 09/26/18 08:05 36.7 C 82 18 128/79 100 09/26/18 07:13 82 17 94 09/26/18 04:10 36.8 C 93 H 18 158/81 H 97 09/25/18 23:10 36.7 C 94 H 18 145/81 H 92
[2018-09-26] MEDS: HYDROCODONE/ACETAMOPHEN 5/325MG TAB PO PRN ×2 (12:54→23:28)
--- NOTE | 2018-09-26 14:57 | Hospitalist Progress Note ---
Date of Service September 26, 2018 Assessment & Plan (1) Thoracic spinal stenosis: - S/P Thoracic Decompression and Fusion on 09/25 - doing well post- operatively - Pain management, PT/OT, DVT prophylaxis, surgical management per primary team Stable with chronic medical conditions. Continue home medications as previously prescribed. Tried to update Glimiperide dosing on home med rec however it would not allow me to adjust this for some reason. No further acute changes needed. Anticipated D/C home tomorrow. At this time hospitalists will sign off however please do not hesitate to contact us for questions or change in medical status. (2) Suprapubic pain: - Reports this as cramping like period cramps but also feels similar to when she would get radiation - does have some mild erythema of R abdominal folds and can use Desenex - UA unremarkable; uncertain if temp Oakley placed during OR? can monitor urine output and monitor for retention - maybe just some bladder spasms? - Denies constipation issues - States pain started after surgery and was not present prior; apparently actually improved with Maalox so maybe just gaseous distention? and is having a lot of belching (3) Type 2 diabetes mellitus: - A1c is 5.1; per record review it appears that she has mid-day lows - given her A1c she could possibly transition off anti-diabetics - Discussing with patient and family it appears she tends to have high AM sugars - maybe zaheer effect/somogyi effect? - She is tolerating a diet and can continue her oral regimen; did have some Dexamethasone so may have some elevating glucose -- Currently is taking Januvia in AM and Glimiperide once daily with dinner - tried to update home med rec but it would not allow me to adjust medication - Given her A1c it wouldn't be unreasonable to D/C her sulfonylurea and pending monitoring may ultimately come off Januvia - and given the type 2 nature, diet and exercise could ultimately stabilize this but will defer this to her PCP who is trending this (4) Chronic anemia: - Stable - likely in the setting of renal impairment; will monitor (5) Urothelial carcinoma of bladder: - Currently off radiation/chemo - follows with Dr. Peterson (6) Non-small cell lung cancer: - Remote history and is S/P resection; no ongoing issues at this time (7) CKD (chronic kidney disease), stage IV: - STABLE with baseline appearing around 1.3-1.6 and will monitor post- operatively (8) CAD (coronary atherosclerotic disease): - H/O NM and CABG and HTN/HLD; denies chronic angina - Continue ASA 81 mg daily, Furosemide 40 mg daily; Hydralazine 100 mg daily; Losartan 50 mg daily, Lovastatin 20 mg daily, Toprol XL 50 mg BID (9) COPD (chronic obstructive pulmonary disease): - STABLE - no signs of exacerbation at this time - Continue PRN nebs; Singulair Subjective Reports feeling well today. Belching a lot but states the suprapubic discomfort is much improved. Only having mild back discomfort. Discussed her BSGs. She is down to just taking Januvia and Glimepiride just daily due to lower BSGs in the afternoon. She has a close F/U with her PCP for ongoing monitoring. Review of Systems Constitutional: no fever, no chills, no fatigue and no anorexia Ear, Nose, Mouth, Throat: + sore throat; no hoarseness and no dysphagia Respiratory: no cough and no dyspnea Cardiovascular: no chest pain, no palpitations, no lightheadedness and no edema Gastrointestinal: no abdominal pain, no nausea, no vomiting, no constipation and no diarrhea/loose stools Genitourinary: no dysuria Musculoskeletal: + back pain Integumentary: no rash Neurologic: no tingling and no numbness Physical Exam Constitutional: WD/WN, vitals as above Eyes: + anicteric sclerae ENMT: Ears: no hearing impairment Neck: trachea midline Respiratory: normal respiratory effort, lungs clear to auscultation Cardiovascular: Rate/Rhythm: regular rate and regular rhythm Heart Sounds: + murmur Gastrointestinal (Abdomen): Inspection/Auscultation: normal bowel sounds; abdomen not distended Percussion/Palpation: abdomen soft; abdomen nontender Musculoskeletal: Head/Neck/Chest: normocephalic and head atraumatic Neurologic: moves all extremities Psychiatric: A+Ox3, euthymic affect Results & Data Vital Signs (Past 12 Hours) Vital Signs Temp Pulse Resp BP Pulse Ox 09/26/18 11:04 74 18 90 09/26/18 08:05 36.7 C 82 18 128/79 100 09/26/18 07:13 82 17 94 09/26/18 04:10 36.8 C 93 H 18 158/81 H 97 PG Care Time/CCT Total # of Minutes Spent Total Time Spent with Patient: Total time spent is greater than 50% in coordination of care (as documented) at patient's floor/unit and/or counseling patient:
[2018-09-26] MEDS: DOCUSATE SODIUM/SENNA 50/8.6MG TAB PO SCH (20:42)
[2018-09-26] MEDS: LORATADINE 10 MG TAB PO SCH (20:42)
[2018-09-26] MEDS: LOVASTATIN 20 MG TAB PO SCH (20:42)
[2018-09-26] MEDS: MONTELUKAST SODIUM 10 MG TABLET PO SCH (20:43)
[2018-09-27] MEDS: POLYETHYLENE (MIRALAX) 17 GM PACK PO SCH (06:22)
[2018-09-27 06:59] VITALS: BP 148/81; PULSE 76; O2SAT 95
[2018-09-27] MEDS: ALBUT/IPRATROP 3MG/0.5MG NEB 3 ML VIAL INH SCH (07:47)
[2018-09-27] MEDS: HYDROCODONE/ACETAMOPHEN 5/325MG TAB PO PRN (07:48)
[2018-09-27] MEDS: HydrALAZINE TAB 50 MG TAB PO SCH (07:49)
[2018-09-27] MEDS: GABAPENTIN 400 MG CAP PO SCH (07:50)
[2018-09-27] MEDS: LOSARTAN POTASSIUM 50 MG TAB PO SCH (07:50)
[2018-09-27] MEDS: CYANOCOBALAMIN 500 MCG TABLET (VITAMIN B-12) PO SCH (07:50)
[2018-09-27] MEDS: METOPROLOL SUCC 50MG EXT REL TAB PO SCH (07:51)
[2018-09-27] MEDS: PANTOprazole 40 MG TAB PO SCH (07:51)
[2018-09-27] MEDS: DULOXETINE HCL 60 MG CAP PO SCH (07:51)
[2018-09-27] MEDS: ALLOPURINOL 100 MG TAB PO SCH (07:51)
[2018-09-27] MEDS: ASPIRIN 81 MG ECTAB PO SCH (07:51)
[2018-09-27] MEDS: MAGNESIUM OXIDE 400 MG TAB PO SCH (07:52)
[2018-09-27] MEDS: SITAGLIPTIN PHOSPHATE 25 MG TAB PO SCH (07:52)
[2018-09-27] MEDS: FUROSEMIDE 40 MG TAB PO SCH (07:52)
[2018-09-27] MEDS ORDERED: ALBUT/IPRATROP 3MG/0.5MG NEB 3 ML VIAL INH PRN (08:20)
[2018-09-27] MEDS: MICONAZOLE NITRATE POWDER 43 GM EXT SCH (11:09)
--- NOTE | 2018-09-27 13:00 | Discharge Summary ---
Date of Service September 27, 2018 Admission HPI Per Admitting Provider This is a 67-year-old female well-known to the presents with worsening back and leg symptoms here for surgical intervention. Principal Diagnosis Thoracic spinal stenosis with myelopathy Discharge Data Allergies Allergy/AdvReac Type Severity Reaction Status Date / Time albuterol Allergy Unknown tachycardia Verified 09/25/18 06:26 worse d/t moreno/parkinson/white syndrome pollen extracts Allergy Unknown sneezing Verified 09/25/18 06:26 and "runny eyes" adhesive tape Allergy Verified 09/25/18 06:26 oxycodone AdvReac Unknown GI SYMPTOMS Verified 09/25/18 06:26 seasonal allergies AdvReac Unknown coughing, Uncoded 09/07/18 14:01 sneezing Consultations 09/25/18 09:36 Consult Case Management - Discharge Planning Routine 09/25/18 11:26 Consult Hospitalist Routine Procedures Performed Operation Date: 09/25/18 07:45 Actual Procedures p T10-T11 Decompression and Fusion, Spinal Monitoring(Not Applicable) - Esdras Brito DO Ordered Studies 09/25/18 07:45 FL fluoroscopy <1hr Routine FL thoracic spine 2V Routine Hospital Course (1) Thoracic spinal stenosis: Patient underwent lumbar thoracic decompression fusion tolerated as well as taken to orthopedic for postoperative. Postop day 1 she was up and ambulating nicely. She progressed appropriately through postop day #2. GHAZALA drain decreasing appropriately. Pain well controlled. Subsequently discharged home. Discharge orders and instructions from the chart for further review. Total Time Total Time Spent Total Time Spent (In Minutes): 20 minutes Discharge Plan Discharge Items Patient Disposition: Home - Self-Care Reason For Visit: Intervertebral Disc Disorders with Myelopathy Discharge Diagnosis: Thoracic spinal stenosis with myelopathy Discharge Goals: Improve function Activity: Per 'Additional Instructions' section Non-emergency contact: Primary Care Provider Call non-emergency contact if: you have any medication questions Follow-up/Referrals: Jordy Starks MD [Primary Care Provider] - Diet: Regular Addtl Provider Instructions: ACTIVITY RECOMMENDATIONS: SELF CARE INSTRUCTIONS AFTER THORACIC/LUMBAR FUSIONS 1. You may walk to your tolerance. It is good exercise for your legs and back. Expect some back and intermittent leg aches and pains. 2. You may perform "counter-top" level activities (make a sandwich, carlos with a project, etc.). 3. No bending or lifting of more than 10 pounds or back twisting of any nature (roll like a log when turning in bed). 4. You may ride in a car for 20-30 minutes at a time. No driving until after your first visit with your doctor. 5. Frequent changes of position and restricting sitting to 30 minutes at a time will help limit the amount of back spasms and stiffness you may experience. 6. You may discontinue the use of ambulatory aids (cane, crutches, etc.) once your strength and confidence allow. 7. 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 Do not take a tub bath, sit in a hot tub or go into a swimming pool until after your first recheck in the office. SPECIAL CARE INSTRUCTIONS: VERY IMPORTANT TO READ AND REVIEW A. Your surgical incision has been closed with a cosmetic suture under the skin that will dissolve in about 6 weeks. In 14 days, you can use a pair of clean scissors and cut the suture that is left outside of the skin at the ends of your incision. 1. The small skin tapes can be removed 7 days after surgery if they have not fallen off by that point. 2. You may keep the wound open to air as much as possible to promote healing after post-op day number 5 unless told otherwise by your doctor. 3. If you think the wound looks like it is becoming infected (redness or worsening drainage) and/or you are experiencing fever, chill or worsening back pain and muscle spasms, contact the office so that we may evaluate you as soon as possible. B. Complications are uncommon, but please contact us if you have any signs or symptoms of: 1. wound infection (fever higher than 102.5 degrees F, redness, separation of wound, drainage, or increasing pain from the incision) 2. blood clots in legs (pain, swelling, redness and warmth in legs) 3. urinary tract infection (fever higher than 102.5 degrees F, burning upon urination or increased frequency of urination) 4. nerve problems (inability to walk on your toes or heels, numbness, loss of bowel or bladder control) 5. any other symptoms that concern you C. Please call the office at if you have any concerns or questions about your operation or recovery. D. No smoking! Smoking drastically decreases the chance of a solid fusion. E. Do not take any anti-inflammatory medications (Indocin, Advil, Motrin, Aspirin, Naprosyn, etc.) as these may inhibit the chance of a solid fusion. Tylenol is okay to take for pain. MANAGING PAIN AFTER SPINAL SURGERY 1. Narcotic medication is intended for short-term use and will be provided for surgical pain. Surgical pain usually lasts for a period of 4-6 weeks. Narcotic medication includes Percocet, Vicodin, Darvocet, Tylenol #3 or Lortab. 2. Longer-term pain is more appropriately treated with non-narcotic medication such as Tylenol ES. 3. Muscle spasm is not appropriately treated with narcotics. Muscle relaxers such as Soma, Flexeril or Skelaxin can be used along with Tylenol ES. 4. Remember that we all live with some "aches and pains". This is not unusual or uncommon after an injury or as we get older. a. Back pain is expected and may include muscle spasms for 4 to 6 weeks after surgery. The pain should gradually improve. If the pain worsens for no apparent reason, please contact the office. b. Intermittent leg pain may also be experienced and should not be concerned about unless it worsens for no apparent reason. If so, please contact the office. 5. We will provide appropriate medication within the normal guidelines of their prescribed use. We will also be very cautious and aware of potential abuse and extended duration of patients' medication needs. a. Pain medications are for your comfort and to assist with sleep and rest so that the tissue can heal. They are not provided in order to return to normal activity and should not be used through the day. To do so or worsening pain at night can result from ongoing tissue damage and development of tolerance to the prescribed medicine. 6. Please allow 2-3 days to process refills. Prescriptions will not be mailed but must be picked up at the office. FOLLOW UP VISIT: Keep your scheduled follow-up appointment. Any questions, please call the office at . Prescriptions: New hydrocodone-acetaminophen [Harbinger] 5-325 mg Tablet 1 tab PO Q4H PRN (Reason: Pain, Moderate) Qty: 30 RF: 0 Continued codeine-guaifenesin 10-100 mg/5 mL liquid 5 ml PO UD PRN (Reason: Cough) Qty: 1 RF: 0 allopurinol 100 mg tablet 200 mg PO QAM Qty: 180 RF: 3 aspirin [Aspir-81] 81 mg tablet,delayed release (DR/EC) 81 mg PO QAM Qty: 90 RF: 3 OneTouch Ultra Blue Test Strip strip .ROUTE .MEDSUPPLY Qty: 100 RF: 4 cholecalciferol (vitamin D3) 1,000 unit capsule 1,000 unit PO DAILY Qty: 90 RF: 3 coenzyme Q10 [CoQ-10] 100 mg capsule 100 mg PO QAM Qty: 90 RF: 3 cyanocobalamin (vitamin B-12) 1,000 mcg tablet extended release 1,000 mcg PO DAILY Qty: 90 RF: 3 duloxetine [Cymbalta] 60 mg capsule,delayed release(DR/EC) 60 mg PO BID Qty: 180 RF: 3 Perforomist 20 mcg/2 mL solution for nebulization 2 ml INHALATION Q12H PRN (Reason: Wheezing) Qty: 120 RF: 3 furosemide 40 mg tablet 40 mg PO QAM Qty: 90 RF: 3 gabapentin 400 mg capsule 400 mg PO QID Qty: 360 RF: 3 hydralazine 100 mg tablet 100 mg PO QAM Qty: 90 RF: 3 insulin syringe-needle U-100 [Comfort EZ Insulin Syringe] 0.5 mL 31 gauge x 5/16" syringe .ROUTE .MEDSUPPLY Qty: 100 RF: 3 ipratropium-albuterol 0.5 mg-3 mg(2.5 mg base)/3 mL solution for nebulization 3 ml inhalation QID Qty: 180 RF: 3 lancets [OneTouch UltraSoft Lancets] misc .ROUTE .MEDSUPPLY Qty: 204 RF: 4 levalbuterol HCl 0.63 mg/3 mL solution for nebulization 0.63 mg inhalation Q4H PRN (Reason: shortness of breath or wheezing) Qty: 36 RF: 3 levalbuterol tartrate [Xopenex HFA] 45 mcg/actuation HFA aerosol inhaler 1 puff INHALATION Q6H PRN (Reason: Wheezing) Qty: 15 RF: 3 loratadine 10 mg capsule 10 mg PO HS Qty: 90 RF: 3 losartan 100 mg tablet 50 mg PO QAM Qty: 90 RF: 3 lovastatin 20 mg tablet 20 mg PO PM Qty: 90 RF: 3 magnesium oxide 400 mg (241.3 mg magnesium) tablet 400 mg PO DAILY Qty: 90 RF: 3 metoprolol succinate 50 mg tablet extended release 24 hr 50 mg PO BID Qty: 180 RF: 3 mometasone 0.1 % cream 1 appln topical BID PRN (Reason: rash) Qty: 50 RF: 2 montelukast 10 mg tablet 10 mg PO DAILY Qty: 90 RF: 3 nitroglycerin 0.4 mg tablet, sublingual 0.4 mg SL UD PRN (Reason: Chest Pain) Qty: 90 RF: 0 omega-3 acid ethyl esters 1 gram capsule 1 g PO DAILY Qty: 90 RF: 3 rabeprazole 20 mg tablet,delayed release (DR/EC) 20 mg PO QAM Qty: 90 RF: 3 ranitidine HCl 300 mg tablet 300 mg PO HS Qty: 90 RF: 3 Januvia 50 mg tablet 50 mg PO QAM Qty: 90 RF: 3 glimepiride 1 mg tablet 0.5 mg PO .COMPLEX Qty: 30 RF: 5 Stand-Alone Forms: [employer], [facility] [employer]/Other Patient Handouts: DVT Prevent Discharge Orders: Discharge Order (Routine); Ordered 09/27/18 Ordered By: Esdras Brito Admission Data Admit Date/Time: 09/25/18 09:36 Attending Provider: Esdras Brito Admit Provider: Esdras Brito Primary Care Provider: Jordy Starks Other Providers: José Miguel Quintero Service: Surgical Services Other Interventions: Discharge Summary Assessment (RN) Last Done: 09/27/18 10:40 DC Date/Time DO NOT enter until pt leaves facility: 09/27/18 12:25
[2018-09-27] MEDS ORDERED: GLIMEPIRIDE 2 MG TAB PO SCH (16:30)
== END 2018-09-27 12:25 | disposition home or self-care (01) | DRG 460 ==
LOC: ASU 05:48 → 3E 09:36